=== PATIENT | male | born 1940 | race Caucasian/White ===

== ENCOUNTER 2018-02-25 09:12 | Inpatient (IN) ==
[2018-02-25] MEDS ORDERED: Naloxone 0.4 MG/ML INJ IVP PRN (12:13)
[2018-02-25] MEDS ORDERED: 0.9 % Sodium Chloride 1,000 ML IVC SCH (12:15)
--- NOTE | 2018-02-25 12:36 | Internal Med History&Physical ---
<Jennifer Hines - Last Filed: 02/25/18 13:20> Date of Encounter: 02/25/18 Time of Encounter: 12:28 Internal Medicine - H&P: HPI Chief complaint: Weakness Admitted From: Home Plans for Post Hospital Care: Home History of present illness: Mr. Almazan is a 77 year old male with history hypertension CAD, vertigo, and anemia. Patient presented to [facility] today through the ED regarding weakness, dizziness, and melena stools that began yesterday. He was unsure how many stools he had but did indicate that they were diarrheal and he did not have much control over them. + occult stools. Hgb 9.8. Vitals are stable , however the bp is marginally low at 106/59. Will check ortho statics daily. He indicated that he was very dizzy for the past 2 days. Denies fever. Denies chest pain, trops was <0.03. The patient is on plavix, will hold Plavix for now. WBC is 21.2, chest x-ray negative for disease, and UA ordered. Protonix drip started. Patient will be npo after midnight. Please consult GI in am. Past Med Surg Social Fam HX - Past Medical History Medical history: aortic aneurysm, arthritis, COPD, coronary artery disease, GERD , hyperlipidemia, hypertension, kidney stones, myocardial infarction, TIA, other Additional medical history: CAD. HTN. HLD. GERD. Ureteral stone Psychiatric history: anxiety, depression - Past Surgical History Surgical History: angioplasty/stent, appendectomy, herniorrhaphy, hip replacement, orthopedic, other, sinus surgery, other Additional surgical history: esophageal sx, "stomach sx," shoulder surgery - Social History Smoking Status: Former smoker Smokeless Tobacco Status: No Alcohol use: none Drug use: none - Family History Father Age: 78 Cause of : Cancer Hx Family Cardiac Disorders: No Hx Family Respiratory Disorders: Yes Hx Family Cancer: Yes (Hip cancer) Hx Family GI Disorders: No Hx Family Genitourinary Disorders: Yes (Kidney stones) Hx Family Endocrine Disorder: No Hx Family Musculoskeletal Disorders: No Hx Family Neuromuscular Disorders: No Hx Family Neurologic Disorders: No Hx Family HEENT Disorders: No Hx Family Autoimmune Disorders: No Hx Family Reproductive Disorders: No Hx Family Psychosocial Disorders: No Hx Family Medical Disorders: No Internal Medicine - H&P: Meds Clopidogrel [Plavix] 75 mg PO DAILY 06/09/15 [History] Finasteride [Proscar] 5 mg PO DAILY 06/09/15 [History] Isosorbide MONOnitrate [Isosorbide Mononitrate] 30 mg PO DAILY 06/09/15 [History ] Lisinopril [Zestril] 40 mg PO DAILY 06/09/15 [History] Metoclopramide [Reglan] 5 mg PO QIDAC 06/09/15 [History] Ranitidine HCl [Zantac] 300 mg PO BID 06/09/15 [History] Tamsulosin [Flomax] 0.4 mg PO DAILY 06/09/15 [History] Tizanidine HCl 2 mg PO DAILY PRN 02/02/16 [History] Simvastatin [Zocor] 10 mg PO DAILY 02/05/16 [History] ALPRAZolam [Xanax 0.25 MG Tablet] 0.25 mg PO TID 06/11/17 [History] Albuterol Sulfate [Ventolin Hfa] 18 gm IH Q4HR PRN 06/11/17 [History] Fluticasone/Salmeterol [Advair 250-50 Diskus] 1 each IH BID 06/11/17 [History] Hydrocodone/Acetaminophen [[place] 5-325 Tablet] 1 tab PO QID 06/11/17 [History] Montelukast [Singulair] 10 mg PO HS 06/11/17 [History] Nitroglycerin [Nitrostat] 0.4 mg SL PER PKG DI 06/11/17 [History] Omeprazole [PriLOSEC] 40 mg PO DAILY 06/11/17 [History] metFORMIN [Glucophage] 500 mg PO BIDWM PRN 06/11/17 [History] Orphenadrine [Norflex] 100 mg PO Q12HR #20 tablet.er 11/23/17 [Rx] Methocarbamol [Robaxin-750] 750 mg PO QID PRN #40 tablet 02/11/18 [Rx] 3 Allergy/AdvReac Type Severity Reaction Status Date / Time Iodinated Contrast- Oral and Allergy Anaphylaxis Verified 02/25/18 08:07 IV Dye All Systems PM: A 10-system review of systems was performed and is negative for pertinent findings except as documented above in the HPI. - Constitutional Constitutional: weakness, no chills, no fever(s), no night sweats - EENT Eyes: no change in vision, no discharge, no pain, no photophobia Ears: no ear discharge, no ear pain, no tinnitus Nose, mouth and throat: no dysphagia, no nasal discharge, no neck pain, no sore throat - Cardiovascular Cardiovascular ROS IM: lightheadedness, no chest pain, no diaphoresis, no dyspnea, no palpitations, no syncope - Respiratory Respiratory: no cough, no dyspnea, no wheezing, no excessive phlegm production - Gastrointestinal Gastrointestinal: nausea, no abdominal pain, no diarrhea, no hematemesis, no hematochezia, no melena, no vomiting - Musculoskeletal Musculoskeletal ROS IM: no numbness, no tingling - Integumentary Integumentary IM: no rash, no unusual bruising - Neurological Neurological ROS: dizziness, weakness, no confusion, no convulsions, no focal weakness, no numbness, no tingling, no tremor(s) - Hematologic/Lymphatic Hematologic/Lymphatic: no easy bruising - Constitutional Vitals: Temp Pulse Resp BP Pulse Ox 97.4 F L 98 18 106/59 94 02/25/18 10:40 02/25/18 10:40 02/25/18 10:40 02/25/18 10:40 02/25/18 10:40 General appearance: Present: A&O X 3, answers questions appropriately - Head Head exam: Present: atraumatic, normocephalic - Eye Eye exam: Present: PERRL, conjuntiva pink, sclera anicteric Pupils: Present: PERRL - Neck Neck exam general surgery: Present: supple, trachea midline. Absent: lymphadenopathy - Respiratory Respiratory exam: Present: CTAB. Absent: accessory muscle use, rales, rhonchi, wheezes - Cardiovascular Cardiovascular exam: Present: RRR, +S1, +S2. Absent: diastolic murmur, gallop, rubs, systolic murmur - GI/Abdominal GI/Abdominal exam: Present: normal bowel sounds, soft, no peritoneal signs. Absent: distended, tenderness - Extremities Exam Extremities exam: Present: warm, radial pulses palpable and symmetrical. Absent : calf tenderness, cyanotic, pedal edema - Neurological Exam Neurological exam: Present: CN II-XII intact, oriented X3, no focal deficits. Absent: pronater drift, facial droop, speech deficit - Skin Skin exam: Present: dry, intact - Assessment and plan (1) GI bleed Current Visit: No Status: Acute Assessment and plan: GI to be consulted in the am Monitor CBC and BMP PPI gtt NPO after midnight for possible GI intervention Qualifiers: GI bleed type/associated pathology: unspecified gastrointestinal hemorrhage type Qualified Code(s): K92.2 - Gastrointestinal hemorrhage, unspecified (2) Leukocytosis Current Visit: Yes Status: Acute Assessment and plan: Unsure of the etiology of the elevated wbc count. Chest xray was negative for disease. Scheduled UA with culture The patient denied fevers at home. Monitor CBC and BMP daily Qualifiers: Leukocytosis type: unspecified Qualified Code(s): D72.829 - Elevated white blood cell count, unspecified (3) Generalized weakness Current Visit: No Status: Acute Assessment and plan: Likely related to GI bleeding Monitor labs daily Will get daily orthostatics Serial Trops (4) Hypertension Current Visit: No Status: Chronic Assessment and plan: Bp is marginally low @ 106/59 Will add home zestril dosing with parameters Orthos daily Qualifiers: Hypertension type: essential hypertension Qualified Code(s): I10 - Essential (primary) hypertension - Time Spent With Patient Total time spent is greater than 50% in coordination of care (as documented) at patient's floor/unit and/or counseling patient: <Karol Drummond - Last Filed: 02/26/18 08:25> Date of Encounter: 02/25/18 Internal Medicine - H&P: HPI History of present illness: Mr. Almazan is a 77 year old male All Systems PM: A 10-system review of systems was performed and is negative for pertinent findings except as documented above in the HPI. - Constitutional Vitals: Temp Pulse Resp BP Pulse Ox 97.8 F 66 16 126/72 97 02/26/18 07:38 02/26/18 07:38 02/26/18 07:50 02/26/18 07:38 02/26/18 07:50 Internal Med - H&P Results - Labs CBC & Chem 7: 02/26/18 01:42 02/26/18 01:42 Labs: Short CBC 02/25/18 02/25/18 02/26/18 Range/Units 16:16 22:13 01:42 WBC 13.1 H 11.2 H 10.2 (4.3-11.1) K/mcL Hgb 7.7 L D 7.5 L 7.7 L (12.9-16.9) g/dL Hct 24.9 L 23.5 L 23.9 L (37.5-50.1) % Plt Count 185 164 152 (140-400) K/mcL Neutrophils # 8.2 6.6 5.6 (1.6-8.9) K/mcL BMP 02/26/18 01:42 Sodium 141 Potassium 4.1 Chloride 115 H Carbon Dioxide 21 L BUN 50 H Creatinine 0.93 Glucose 96 Calcium 7.6 L Cardiac Enzymes 02/25/18 02/25/18 02/26/18 Range/Units 13:05 19:08 01:42 Troponin I 0.04 H* 0.04 H* 0.03 (< 0.04) ng/mL Urine 02/25/18 Range/Units 17:29 Urine Color Yellow (Yellow) Urine Clarity Clear (Clear) Urine pH 6.0 (5.0-8.0) pH Units Ur Specific [place] 1.019 (1.010-1.025) Urine Protein Negative (Neg-Trace) mg/dL Urine Glucose (UA) Normal (Normal) mg/dL - Attending Attestation I have personally performed a face to face evaluation on this patient. I have reviewed and agree with the care plan provided by CHILD STUDY TEAM DIRECTOR Jennifer Hines . History and Exam by me shows: Mr. Almazan is a 77 year old male with history hypertension CAD, vertigo, and anemia. Patient presented to [facility] today through the ED regarding weakness, dizziness, and melena stools that began yesterday. He was unsure how many stools he had but did indicate that they were diarrheal and he did not have much control over them. + occult stools. Hgb 9.8. Vitals are stable , however the bp is marginally low at 106/59. He indicated that he was very dizzy for the past 2 days. He denied any CP / SOB. c/o feeling weak and lethargic. Gen: A, A, O x 3 Chest: Diminished BS b/l Heart: S1S2+ a/p 1. Acute melena / upper GI bleed 2. Acute blood loss anemia PPI BID Close monitoring of Hb GI consult in AM - May need EGD check Iron profile IV hydration - Time Spent With Patient Total time spent is greater than 50% in coordination of care (as documented) at patient's floor/unit and/or counseling patient:
[2018-02-25] MEDS: Pantoprazole 40 MG in 0.9 % Sodium Chloride Mini Bag 100 ML IVC SCH ×3 (13:30→22:54)
[2018-02-25 16:40] LABS: Basophils # 0.1 K/mcL (0.0-0.2); Basophils % 0.4 %; Eosinophils # 0.1 K/mcL (0.0-0.6); Eosinophils % 0.9 %; Hematocrit 24.9 % (37.5-50.1); Hemoglobin 7.7 g/dL (12.9-16.9); Immature Granulocytes % 0.3 % (0-4); Immature Platelets 2.7 % (1.1-6.1); Lymphocytes # 3.9 K/mcL (0.6-4.6); Lymphocytes % 29.9 %; Mean Corpuscular HGB Conc 30.9 g/dL (31.6-35.5); Mean Corpuscular Hemoglobin 25.1 pg (28.0-33.3); Mean Corpuscular Volume 81.1 fL (83.0-100.0); Mean Platelet Volume 9.8 fL (9.4-12.4); Monocytes # 0.8 K/mcL (0.0-1.3); Monocytes % 5.8 %; Neutrophils # 8.2 K/mcL (1.6-8.9); Platelet Count 185 K/mcL (140-400); Red Blood Count 3.07 M/mcL (4.19-5.50); Red Cell Distribution Width 18.2 % (11.5-14.5); Segmented Neutrophils % 62.7 %
[2018-02-25 17:40] LABS: Bilirubin,Urine Negative (Negative); Blood,Urine Negative (Negative); Clarity,Urine Clear (Clear); Color,Urine Yellow (Yellow); Glucose,Urine (UA) Normal (Normal); Ketones,Urine Negative (Negative); Leukocyte Esterase,Urine Small (Negative); Nitrite,Urine Negative (Negative); Protein,Urine Negative (Neg-Trace); Specific Gravity,Urine 1.019 (1.010-1.025); Urobilinogen,Urine Normal (Normal)
[2018-02-25 17:42] LABS: Bacteria,Urine Many per hpf (None-Few); Hyaline Casts,Urine None Seen per lpf (None-Few); RBC,Urine 0-3 per hpf (0-3); Squamous Epithelial Cell,Urine Moderate per lpf (None-Few)
[2018-02-25] MEDS ORDERED: *HR* HYDROcodone/Acet 5/325 mg TABLET PO PRN (17:53)
[2018-02-25] MEDS ORDERED: ALPRAZolam 0.25 MG TABLET PO PRN (17:53)
[2018-02-25] MEDS ORDERED: D5% in Water 1,000 ML IVC PRN (18:08)
[2018-02-25] MEDS ORDERED: *HR* Dextrose 50 % in Water (Syg) 50 ML SYRINGE IVP PRN (18:08)
[2018-02-25] MEDS ORDERED: Dextrose Gel 15 GM/37.5 ML TUBE PO PRN ×2 (18:08)
[2018-02-25] MEDS: Budesonide/Formoterol 80/4.5 MDI IH SCH (20:23)
[2018-02-25 22:25] LABS: Basophils # 0.1 K/mcL (0.0-0.2); Basophils % 0.4 %; Eosinophils # 0.2 K/mcL (0.0-0.6); Hematocrit 23.5 % (37.5-50.1); Hemoglobin 7.5 g/dL (12.9-16.9); Immature Granulocytes % 0.3 % (0-4); Lymphocytes # 3.7 K/mcL (0.6-4.6); Lymphocytes % 33.2 %; Mean Corpuscular HGB Conc 31.9 g/dL (31.6-35.5); Mean Corpuscular Hemoglobin 26.1 pg (28.0-33.3); Mean Corpuscular Volume 81.9 fL (83.0-100.0); Mean Platelet Volume 10.3 fL (9.4-12.4); Monocytes # 0.6 K/mcL (0.0-1.3); Monocytes % 5.3 %; Neutrophils # 6.6 K/mcL (1.6-8.9); Platelet Count 164 K/mcL (140-400); Red Blood Count 2.87 M/mcL (4.19-5.50); Red Cell Distribution Width 18.1 % (11.5-14.5); Segmented Neutrophils % 58.8 %
[2018-02-25] MEDS: Insulin LISPRO 300 UNITS/3 ML VIAL SQ SCH (22:39)
[2018-02-26 01:53] LABS: Basophils # 0.1 K/mcL (0.0-0.2); Basophils % 0.5 %; Eosinophils # 0.3 K/mcL (0.0-0.6); Eosinophils % 2.5 %; Hematocrit 23.9 % (37.5-50.1); Hemoglobin 7.7 g/dL (12.9-16.9); Immature Granulocytes % 0.3 % (0-4); Lymphocytes # 3.8 K/mcL (0.6-4.6); Lymphocytes % 37.2 %; Mean Corpuscular HGB Conc 32.2 g/dL (31.6-35.5); Mean Corpuscular Hemoglobin 26.5 pg (28.0-33.3); Mean Corpuscular Volume 82.1 fL (83.0-100.0); Mean Platelet Volume 9.5 fL (9.4-12.4); Monocytes # 0.5 K/mcL (0.0-1.3); Neutrophils # 5.6 K/mcL (1.6-8.9); Platelet Count 152 K/mcL (140-400); Red Blood Count 2.91 M/mcL (4.19-5.50); Red Cell Distribution Width 18.1 % (11.5-14.5); Segmented Neutrophils % 54.5 %
[2018-02-26 02:10] LABS: BUN/Creatinine Ratio 54 (6-26); Blood Urea Nitrogen 50 mg/dL (8-23); Calcium 7.6 mg/dL (8.6-10.3); Carbon Dioxide 21 mEq/L (23-29); Chloride 115 mEq/L (98-107); Glucose 96 mg/dL (70-105); Magnesium 1.9 mg/dL (1.6-2.6); Osmolality,Calculated 305 (280-300); Potassium 4.1 mEq/L (3.5-5.1); Sodium 141 mEq/L (136-145); eGFR For African Americans > 60 (> 60); eGFR For Non-African Americans > 60 (> 60)
[2018-02-26] MEDS: Pantoprazole 40 MG in 0.9 % Sodium Chloride Mini Bag 100 ML IVC SCH (03:52)
[2018-02-26] MEDS: Insulin LISPRO 300 UNITS/3 ML VIAL SQ SCH ×4 (07:39→20:34)
[2018-02-26] MEDS: Budesonide/Formoterol 80/4.5 MDI IH SCH ×2 (07:50→20:48)
[2018-02-26] MEDS ORDERED: Lisinopril 20 MG TABLET PO SCH (09:00)
[2018-02-26] MEDS: Isosorbide MONOnitrate (24 HR) 30 MG TAB.ER.24H PO SCH (09:38)
[2018-02-26] MEDS: Finasteride 5 MG TABLET PO SCH (09:38)
--- NOTE | 2018-02-26 12:18 | Gastroenterology Consult Note ---
<MccauleyMarkus devine Foster - Last Filed: 02/26/18 12:16> Date of Encounter: 02/26/18 Time of Encounter: 11:30 - Assessment and plan (1) GI bleed Current Visit: Yes Status: Acute Assessment and plan: Pt with melena and dark red blood with BM. Plan for EGD today to r/o esophagitis , gastritis, duodenitis, PUD, MW tear, or AVM. Keep patient NPO for now. Consider colonoscopy tomorrow if EGD negative. Continue PPI. Qualifiers: GI bleed type/associated pathology: unspecified gastrointestinal hemorrhage type Qualified Code(s): K92.2 - Gastrointestinal hemorrhage, unspecified (2) Anemia Current Visit: Yes Status: Acute Assessment and plan: Hgb 7.7 on admission and Hgb 7.7 this AM. Continue to monitor CBC and transfuse PRBC as needed. Check iron and ferritin. Qualifiers: Anemia type: unspecified type Qualified Code(s): D64.9 - Anemia, unspecified - Time Spent With Patient Total time spent is greater than 50% in coordination of care (as documented) at patient's floor/unit and/or counseling patient: GI History of Present Illness - Data of Consult Patient: new to practice Consult date: 02/26/18 Requesting Physician: Karol Drummond MD - Consult Narrative Reason for consult: GI bleed, melena History of present illness: Mr. Almazan is a 77 year old male with PMHx of aortic aneurysm, arthritis, COPD , CAD, GERD, HLD, HTN, [place], TIA who presented to [facility] through the ED regarding weakness, dizziness, and melena stools and dark red blood with BM that began the day prior to admission. He was unsure how many stools he had but did indicate that they were diarrhea and he did not have much control over them. Positive fecal occult stools. Hgb 7.7 on admission and Hgb 7.7 this AM. Protonix drip started and changed to IVP. Procedures: EGD 04/01/2011 Dr. Skelton: LA Grade C erosive esophagitis, pyloroplasty and Billroth I anastomosis was found. Colonoscopy 02/24/2010 Dr. Meng: Tubular adenoma. NSAIDs: None Anticoagulation: Plavix Past Med Surg Social Fam HX - Past Medical History Medical history: aortic aneurysm, arthritis, COPD, coronary artery disease, GERD , hyperlipidemia, hypertension, kidney stones, myocardial infarction, TIA, other Additional medical history: CAD. HTN. HLD. GERD. Ureteral stone Psychiatric history: anxiety, depression - Past Surgical History Surgical History: angioplasty/stent, appendectomy, herniorrhaphy, hip replacement, orthopedic, other, sinus surgery, other Additional surgical history: esophageal sx, "stomach sx," shoulder surgery - Social History Smoking Status: Former smoker Smokeless Tobacco Status: No Alcohol use: none Drug use: none - Family History Father Age: 78 Cause of : Cancer Hx Family Cardiac Disorders: No Hx Family Respiratory Disorders: Yes Hx Family Cancer: Yes (Hip cancer) Hx Family GI Disorders: No Hx Family Genitourinary Disorders: Yes (Kidney stones) Hx Family Endocrine Disorder: No Hx Family Musculoskeletal Disorders: No Hx Family Neuromuscular Disorders: No Hx Family Neurologic Disorders: No Hx Family HEENT Disorders: No Hx Family Autoimmune Disorders: No Hx Family Reproductive Disorders: No Hx Family Psychosocial Disorders: No Hx Family Medical Disorders: No - Gastrointestinal Gastrointestinal: Present: as per HPI - Constitutional Constitutional: as per HPI - EENT Eyes: as per HPI Ears: Present: as per HPI Nose, mouth and throat: Present: as per HPI - Cardiovascular Cardiovascular ROS: Present: as per HPI - Respiratory Respiratory IM: Present: as per HPI - Genitourinary Genitourinary: Absent: change in color, Urinary frequency - Neurological ROS Neurological GI: Present: as per HPI - Hematologic/Lymphatic Hematologic/Lymphatic pediatric: Present: as per HPI - Musculoskeletal Musculoskeletal ROS GI: Present: as per HPI - Integumentary Integumentary GI: Present: as per HPI - Psychiatric ROS Psychiatric GI: Present: as per HPI - Endocrine Endocrine IM: Present: as per HPI - Constitutional Vitals: Temp Pulse Resp BP Pulse Ox 97.8 F 64 14 106/52 100 02/26/18 10:53 02/26/18 10:53 02/26/18 10:53 02/26/18 10:53 02/26/18 10:53 General appearance: Present: cooperative, A&O X 3, no acute distress, answers questions appropriately - Head Head exam: Present: atraumatic, normocephalic - Eye Eye exam: Present: normal appearance, sclera anicteric - ENT ENT exam: Present: mucous membranes dry - Neck Neck exam general surgery: Present: normal inspection, trachea midline - Respiratory Respiratory exam: Present: decreased breath sounds, CTAB. Absent: rales, rhonchi - Cardiovascular Cardiovascular exam: Present: RRR, +S1, +S2 - GI/Abdominal GI/Abdominal exam: Present: soft, no peritoneal signs. Absent: distended, firm , guarding, tenderness - Rectal Rectal exam: Present: deferred - Extremities Exam Extremities exam: Present: warm - Neurological Exam Neurological exam: Present: no focal deficits - Psychiatric Psychiatric exam: Present: normal affect, normal mood - Skin Skin exam: Present: dry, intact, normal color, warm Results - Labs CBC & Chem 7: 02/26/18 01:42 02/26/18 01:42 Labs: Last Result Calcium 7.6 mg/dL (8.6-10.3) L 02/26/18 01:42 Troponin I 0.03 ng/mL (< 0.04) 02/26/18 01:42 Entire Visit Hgb 7.7 g/dL (12.9-16.9) L 02/26/18 01:42 Hct 23.9 % (37.5-50.1) L 02/26/18 01:42 Consult Discharge Plan - Plan Referrals: Syeda Dubose, CLIP ON SUNGL[employer]ES INSPECTOR [Primary Care Provider] - <Randell Julian - Last Filed: 02/26/18 13:49> Date of Encounter: 02/26/18 Time of Encounter: 13:15 - Time Spent With Patient Total time spent is greater than 50% in coordination of care (as documented) at patient's floor/unit and/or counseling patient: GI History of Present Illness - Data of Consult Requesting Physician: Karol Drummond MD - Consult Narrative History of present illness: Mr. Almazan is a 77 year old male - Constitutional Vitals: Temp Pulse Resp BP Pulse Ox 98.7 F 78 16 107/61 98 02/26/18 12:50 02/26/18 12:50 02/26/18 12:50 02/26/18 12:50 02/26/18 12:50 Results - Labs CBC & Chem 7: 02/26/18 01:42 02/26/18 01:42 Labs: Last Result Calcium 7.6 mg/dL (8.6-10.3) L 02/26/18 01:42 Troponin I 0.03 ng/mL (< 0.04) 02/26/18 01:42 Entire Visit Hgb 7.7 g/dL (12.9-16.9) L 02/26/18 01:42 Hct 23.9 % (37.5-50.1) L 02/26/18 01:42 - Attending Attestation I have personally performed a face to face evaluation on this patient. I have reviewed and agree with the care plan. History and Exam by me shows: Pt seen complaining of rectal bleeding per patient both red and dark. History of coronary disease with stent placement and is currently on Plavix. Recommendation: EGD today and if negative then we will need a colonoscopy
--- NOTE | 2018-02-26 12:21 | Anesthesia Evaluation PreOp ---
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: TIA (no residual deficits) Other Medical History: Renal (stones), Bleeding (GI bleed), GERD (hx esophageal/ stomach surgery) Anesthesia History: No Prior Anesthetic Complications Alcohol Use: none Drug use: none Medications and Allergies Isosorbide MONOnitrate [Isosorbide Mononitrate] 30 mg PO DAILY 06/09/15 [History ] Tizanidine HCl 2 mg PO DAILY PRN 02/02/16 [History] Simvastatin [Zocor] 10 mg PO DAILY 02/05/16 [History] ALPRAZolam [Xanax 0.25 MG Tablet] 0.25 mg PO TID 06/11/17 [History] Albuterol Sulfate [Ventolin Hfa] 18 gm IH Q4HR PRN 06/11/17 [History] Fluticasone/Salmeterol [Advair 250-50 Diskus] 1 each IH BID 06/11/17 [History] Montelukast [Singulair] 10 mg PO HS 06/11/17 [History] Nitroglycerin [Nitrostat] 0.4 mg SL PER PKG DI 06/11/17 [History] Omeprazole [PriLOSEC] 40 mg PO DAILY 06/11/17 [History] metFORMIN [Glucophage] 500 mg PO BIDWM PRN 06/11/17 [History] Orphenadrine [Norflex] 100 mg PO Q12HR #20 tablet.er 11/23/17 [Rx] Methocarbamol [Robaxin-750] 750 mg PO QID PRN #40 tablet 02/11/18 [Rx] Clopidogrel [Plavix] 75 mg PO DAILY 02/26/18 [History] Finasteride [Proscar] 5 mg PO DAILY 02/26/18 [History] HYDROcodone/Acet 5/325 mg [[place] 5-325 mg] 1 tab PO Q6H PRN 02/26/18 [History] Lisinopril [Zestril] 40 mg PO DAILY 02/26/18 [History] Metoclopramide HCl 5 mg PO QID 02/26/18 [History] Ranitidine HCl [Zantac] 300 mg PO DAILY 02/26/18 [History] Tamsulosin [Flomax] 0.4 mg PO DAILY 02/26/18 [History] Tizanidine HCl 4 mg PO DAILY 02/26/18 [History] 3 Allergy/AdvReac Type Severity Reaction Status Date / Time Iodinated Contrast- Oral and Allergy Anaphylaxis Verified 02/25/18 08:07 IV Dye - Meds/Allergy Pre-op Review Medications Reviewed: Yes Allergies Reviewed: Yes Beta Blockers on Current Med List: No Anesthesia Results - Labs 02/26/18 01:42 02/26/18 01:42 - Imaging Additional studies: TTE: Indications: Coronary artery disease, dyspnea, dizziness, Hypertension Impressions: Sinus bradycardia. Heart rate was in the 40's during this study. Normal LV systolic function, LVEF 60%. Mild-moderate concentric left ventricular hypertrophy. Mild left ventricular diastolic dysfunction. Normal right ventricular structure and function. No significant valvular dysfunction. No evidence of pulmonary hypertension. 2015 Holter: Impression: 1. Diary was not returned. 2. One PVC. 3. Rare PACs - 1.8/hr. 4. Two episodes of SVT - longest 8 beats. Anesthesia Exam Last Vital Signs Temp 97.8 F 02/26/18 10:53 Pulse 64 02/26/18 10:53 Resp 14 02/26/18 10:53 BP 106/52 02/26/18 10:53 Pulse Ox 100 02/26/18 10:53 Weight: 62 kg NPO (# of Hours): > 8 hrs - HEENT Pupil (Motor): Pupils equal, EOMI Mallampati: III Teeth: Edentulous Denture Type: Upper: Complete Oral Opening: Greater than 3 - BONE CHAR OPERATOR LOC: Oriented - Cardiac Rhythm: Regular Murmur: None - Pulmonary Breath Sounds: bilateral Clear Respiratory Effort: Symmetrical Anesthesia Assess/Plan ASA Score: 4 Modified [place] Scale for Level of Consciousness: Cooperative, oriented, and tranquil Anesthetic Plan: MAC Monitoring Plan: Standard Monitors Recovery Plan: PACU
[2018-02-26] MEDS ORDERED: *HR* Propofol 200 MG/20 ML VIAL IVP ONE (12:25)
[2018-02-26] MEDS ORDERED: Lidocaine -MPF 2% 2 ML VIAL ONE (12:25)
[2018-02-26] MEDS ORDERED: *HR* PHENYLEPHRINE 1,000 MCG/10 ML SYRINGE IVP ONE (12:41)
[2018-02-26] MEDS ORDERED: SODIUM CHLORIDE/NAHCO3/KCL/PEG 4,000 ML SOLN.RECON PO ONE (13:49)
--- NOTE | 2018-02-26 13:55 | Anesthesia Evaluation Post Op ---
Date of Encounter: 02/26/18 Time of Encounter: 13:55 - Vital Signs Vital Signs: see anesthesia record - Lungs Lungs: Clear Ascult./Percussion - Airway Airway: Non-obstructed - Cardiovascular Regular Rate - Mental Status Mental Status: Alert & Oriented, Answers Appropriately - Pain Pain Scale: 2 - Nausea Vomiting Nausea Vomiting: Not Present - Hydration Hydration: NPO - Discharge PostOp Status: Transfer Patient to floor
[2018-02-26 14:09] LABS: % Iron Saturation 4 % (20-55); Ferritin 18 ng/ml (20-250); Iron 11 mcg/dL (65-175); Transferrin 216 mg/dL (203-362)
--- NOTE | 2018-02-26 18:04 | Internal Med Progress Note ---
Date of Encounter: 02/26/18 Time of Encounter: 18:02 - Assessment and plan (1) Anemia Current Visit: Yes Status: Acute Assessment and plan: Acute blood loss anemia s/p EGD showed esophagitis Hb dropped down to 7.7 with his current active bleeding will give him 2 U PRBC switched him to full admission since he needs to stay in hospital more than 2-3 nights PPI BID IV hydration will check stat H/H now Qualifiers: Anemia type: unspecified type Qualified Code(s): D64.9 - Anemia, unspecified (2) GI bleed Current Visit: Yes Status: Acute Assessment and plan: see above Qualifiers: GI bleed type/associated pathology: unspecified gastrointestinal hemorrhage type Qualified Code(s): K92.2 - Gastrointestinal hemorrhage, unspecified (3) CAD (coronary artery disease) Current Visit: No Status: Chronic Assessment and plan: resumed all home meds except ASA Qualifiers: Coronary Disease-Associated Artery/Lesion type: unspecified vessel or lesion type [place] vs. transplanted heart: [place] heart Associated angina: angina presence unspecified Qualified Code(s): I25.10 - Atherosclerotic heart disease of [place] coronary artery without angina pectoris (4) Hypertension Current Visit: No Status: Chronic Assessment and plan: BP running little low so held Lisinopril Qualifiers: Hypertension type: essential hypertension Qualified Code(s): I10 - Essential (primary) hypertension - Time Spent With Patient Total time spent is greater than 50% in coordination of care (as documented) at patient's floor/unit and/or counseling patient: - Subjective Interval history: Pt had EGD today - LA grade D esophagitis He is c/o feeling weak and dizzy GI started colonoscopy prep..Now he started having more bright red blood per rectum Denied any CP - Constitutional Vitals: Temp Pulse Resp BP Pulse Ox 97.9 F 70 15 103/57 98 02/26/18 16:06 02/26/18 16:06 02/26/18 16:06 02/26/18 16:06 02/26/18 16:06 General appearance: Present: A&O X 3, answers questions appropriately - Head Head exam: Present: atraumatic, normal inspection - Neck Neck exam general surgery: Present: supple - Respiratory Respiratory exam: Present: decreased breath sounds. Absent: rales, respiratory distress, wheezes - Cardiovascular Cardiovascular exam: Present: RRR, +S1, +S2. Absent: tachycardia - GI/Abdominal GI/Abdominal exam: Present: normal bowel sounds, soft. Absent: rebound, rigid, tenderness - Extremities Exam Extremities exam: Absent: pedal edema, tenderness - Back Exam Back exam: Absent: CVA tenderness (L), CVA tenderness (R) - Neurological Exam Neurological exam: Present: alert, oriented X3 Internal Medicine: Result - Labs CBC & Chem 7: 02/26/18 01:42 02/26/18 01:42 Labs: Short CBC 02/25/18 02/26/18 Range/Units 22:13 01:42 WBC 11.2 H 10.2 (4.3-11.1) K/mcL Hgb 7.5 L 7.7 L (12.9-16.9) g/dL Hct 23.5 L 23.9 L (37.5-50.1) % Plt Count 164 152 (140-400) K/mcL Neutrophils # 6.6 5.6 (1.6-8.9) K/mcL BMP 02/26/18 01:42 Sodium 141 Potassium 4.1 Chloride 115 H Carbon Dioxide 21 L BUN 50 H Creatinine 0.93 Glucose 96 Calcium 7.6 L Cardiac Enzymes 02/25/18 02/26/18 Range/Units 19:08 01:42 Troponin I 0.04 H* 0.03 (< 0.04) ng/mL Consult Discharge Plan - Plan Referrals: Syeda Dubose, DIRECTOR OF ONCOLOGY [Primary Care Provider] -
[2018-02-26 18:27] LABS: Hematocrit 25.8 % (37.5-50.1)
[2018-02-26] MEDS: Pantoprazole 40 MG VIAL IVP SCH (18:33)
[2018-02-26] MEDS: 0.9 % Sodium Chloride 1,000 ML IVC SCH (18:39)
[2018-02-26] MEDS ORDERED: 0.9 % Sodium Chloride 250 ML ONE ×2 (20:02→23:15)
[2018-02-27] MEDS ORDERED: Ondansetron 4 MG/2 ML VIAL IVP SCH
[2018-02-27] MEDS ORDERED: Ondansetron 4 MG/2 ML VIAL IVP PRN (03:30)
[2018-02-27] MEDS: 0.9 % Sodium Chloride 1,000 ML IVC SCH ×3 (04:49→21:55)
[2018-02-27] MEDS: Pantoprazole 40 MG VIAL IVP SCH ×2 (05:46→16:50)
[2018-02-27 06:59] LABS: Basophils # 0.1 K/mcL (0.0-0.2); Basophils % 0.4 %; Eosinophils # 0.1 K/mcL (0.0-0.6); Eosinophils % 0.8 %; Hematocrit 25.7 % (37.5-50.1); Hemoglobin 8.2 g/dL (12.9-16.9); Immature Granulocytes % 0.6 % (0-4); Lymphocytes # 2.3 K/mcL (0.6-4.6); Lymphocytes % 15.6 %; Mean Corpuscular HGB Conc 31.9 g/dL (31.6-35.5); Mean Corpuscular Hemoglobin 26.5 pg (28.0-33.3); Mean Corpuscular Volume 82.9 fL (83.0-100.0); Mean Platelet Volume 10.4 fL (9.4-12.4); Monocytes # 0.6 K/mcL (0.0-1.3); Monocytes % 4.2 %; Neutrophils # 11.4 K/mcL (1.6-8.9); Platelet Count 128 K/mcL (140-400); Red Cell Distribution Width 17.6 % (11.5-14.5); Segmented Neutrophils % 78.4 %
[2018-02-27 07:17] LABS: BUN/Creatinine Ratio 35 (6-26); Blood Urea Nitrogen 34 mg/dL (8-23); Calcium 7.3 mg/dL (8.6-10.3); Carbon Dioxide 22 mEq/L (23-29); Chloride 114 mEq/L (98-107); Glucose 127 mg/dL (70-105); Osmolality,Calculated 297 (280-300); Potassium 4.1 mEq/L (3.5-5.1); Sodium 139 mEq/L (136-145); eGFR For African Americans > 60 (> 60); eGFR For Non-African Americans > 60 (> 60)
[2018-02-27] MEDS: Budesonide/Formoterol 80/4.5 MDI IH SCH ×2 (07:36→19:49)
[2018-02-27] MEDS: Finasteride 5 MG TABLET PO SCH (08:07)
[2018-02-27] MEDS: Isosorbide MONOnitrate (24 HR) 30 MG TAB.ER.24H PO SCH (08:08)
[2018-02-27] MEDS: Insulin LISPRO 300 UNITS/3 ML VIAL SQ SCH ×5 (08:08→20:23)
[2018-02-27] MEDS ORDERED: *HR* Midazolam HCl 5 MG/5 ML VIAL IVP ONE (12:06)
[2018-02-27] MEDS ORDERED: *HR* FentaNYL (PF) 100 MCG/2 ML VIAL ONE (12:07)
[2018-02-27] MEDS ORDERED: *HR* FentaNYL (PF) 100 MCG/2 ML VIAL IVP ONE (12:10)
[2018-02-27] MEDS ORDERED: Simethicone 40 MG/0.6 ML MLS IR ONE (12:10)
[2018-02-27] MEDS ORDERED: *HR* Midazolam HCl 2 MG/2 ML VIAL IVP ONE (12:10)
--- NOTE | 2018-02-27 17:36 | Internal Med Progress Note ---
Date of Encounter: 02/27/18 Time of Encounter: 11:00 - Assessment and plan (1) GI bleed Current Visit: Yes Status: Acute Assessment and plan: Patient scheduled for colonoscopy this afternoon per GI Qualifiers: GI bleed type/associated pathology: unspecified gastrointestinal hemorrhage type Qualified Code(s): K92.2 - Gastrointestinal hemorrhage, unspecified (2) Anemia Current Visit: Yes Status: Acute Assessment and plan: Suspect secondary to acute blood loss anemia. s/p EGD showed esophagitis Hb dropped down to 7.7 and was given 2 U PRBC Patient hemoglobin today 8.2 Patient scheduled for colonoscopy this afternoon per GI Qualifiers: Anemia type: unspecified type Qualified Code(s): D64.9 - Anemia, unspecified (3) Hypertension Current Visit: No Status: Chronic Assessment and plan: BP runninglow Continue holding Lisinopril Qualifiers: Hypertension type: essential hypertension Qualified Code(s): I10 - Essential (primary) hypertension (4) CAD (coronary artery disease) Current Visit: No Status: Chronic Assessment and plan: resumed all home meds except ASA Qualifiers: Coronary Disease-Associated Artery/Lesion type: unspecified vessel or lesion type [place] vs. transplanted heart: [place] heart Associated angina: angina presence unspecified Qualified Code(s): I25.10 - Atherosclerotic heart disease of [place] coronary artery without angina pectoris - Time Spent With Patient Total time spent is greater than 50% in coordination of care (as documented) at patient's floor/unit and/or counseling patient: - Subjective Interval history: Patient hemodynamically stable status post 2 units of packed red blood cells Patient scheduled for colonoscopy this afternoon - Constitutional Vitals: Temp Pulse Resp BP Pulse Ox 97.8 F 65 18 101/40 96 02/27/18 15:44 02/27/18 15:44 02/27/18 15:44 02/27/18 15:44 02/27/18 15:44 General appearance: Present: A&O X 3, answers questions appropriately - Respiratory Respiratory exam: Present: CTAB. Absent: accessory muscle use, rales, rhonchi, wheezes - Cardiovascular Cardiovascular exam: Present: RRR, +S1, +S2. Absent: diastolic murmur, gallop, rubs, systolic murmur Internal Medicine: Result - Labs CBC & Chem 7: 02/27/18 06:33 02/27/18 06:33 Labs: Short CBC 02/26/18 02/27/18 Range/Units 18:13 06:33 WBC 14.6 H (4.3-11.1) K/mcL Hgb 8.0 L 8.2 L (12.9-16.9) g/dL Hct 25.8 L 25.7 L (37.5-50.1) % Plt Count 128 L (140-400) K/mcL Neutrophils # 11.4 H (1.6-8.9) K/mcL BMP 02/27/18 06:33 Sodium 139 Potassium 4.1 Chloride 114 H Carbon Dioxide 22 L BUN 34 H Creatinine 0.96 Glucose 127 H Calcium 7.3 L - VTE Documentation of Mechanical Device: Intermittent pneumatic compression device Consult Discharge Plan - Plan Referrals: Syeda Dubose, [employer] [Primary Care Provider] -
[2018-02-28] MEDS: Pantoprazole 40 MG VIAL IVP SCH (05:16)
[2018-02-28] MEDS: 0.9 % Sodium Chloride 1,000 ML IVC SCH (05:16)
[2018-02-28 06:08] LABS: BUN/Creatinine Ratio 21 (6-26); Blood Urea Nitrogen 17 mg/dL (8-23); Calcium 7.1 mg/dL (8.6-10.3); Carbon Dioxide 21 mEq/L (23-29); Chloride 115 mEq/L (98-107); Glucose 89 mg/dL (70-105); Osmolality,Calculated 291 (280-300); Potassium 3.6 mEq/L (3.5-5.1); Sodium 140 mEq/L (136-145); eGFR For African Americans > 60 (> 60); eGFR For Non-African Americans > 60 (> 60)
[2018-02-28] MEDS: Budesonide/Formoterol 80/4.5 MDI IH SCH (07:39)
[2018-02-28 07:50] LABS: Basophils % 0.6 %; Eosinophils # 0.2 K/mcL (0.0-0.6); Eosinophils % 2.3 %; Hematocrit 23.7 % (37.5-50.1); Hemoglobin 7.7 g/dL (12.9-16.9); Immature Granulocytes % 0.4 % (0-4); Lymphocytes # 1.9 K/mcL (0.6-4.6); Lymphocytes % 27.8 %; Mean Corpuscular HGB Conc 32.5 g/dL (31.6-35.5); Mean Corpuscular Hemoglobin 27.7 pg (28.0-33.3); Mean Corpuscular Volume 85.3 fL (83.0-100.0); Monocytes # 0.5 K/mcL (0.0-1.3); Monocytes % 7.3 %; Neutrophils # 4.2 K/mcL (1.6-8.9); Platelet Count 110 K/mcL (140-400); Red Blood Count 2.78 M/mcL (4.19-5.50); Red Cell Distribution Width 17.8 % (11.5-14.5); Segmented Neutrophils % 61.6 %
[2018-02-28] MEDS: Insulin LISPRO 300 UNITS/3 ML VIAL SQ SCH (09:21)
[2018-02-28] MEDS: Finasteride 5 MG TABLET PO SCH (09:22)
[2018-02-28] MEDS: Isosorbide MONOnitrate (24 HR) 30 MG TAB.ER.24H PO SCH (09:22)
--- NOTE | 2018-02-28 10:50 | Discharge Summary ---
- NOTES TO OUTPATIENT PROVIDER Notes to Outpatient Provider: Should to have his hemoglobin checked in 3 days monitoring of acute anemia Orders not resulted at time of discharge: Pending orders 02/25/18 13:05 Culture,Blood [BC] Stat 02/27/18 12:43 Surgical Pathology [PTH] Routine Date of Encounter: 02/28/18 Time of Encounter: 11:00 - Discharge Diagnosis (1) GI bleed Priority: Primary Status: Acute Qualifiers: GI bleed type/associated pathology: unspecified gastrointestinal hemorrhage type Qualified Code(s): K92.2 - Gastrointestinal hemorrhage, unspecified (2) Anemia Priority: Primary Status: Acute Qualifiers: Anemia type: unspecified type Qualified Code(s): D64.9 - Anemia, unspecified (3) Hypertension Priority: Secondary Status: Chronic Qualifiers: Hypertension type: essential hypertension Qualified Code(s): I10 - Essential (primary) hypertension (4) CAD (coronary artery disease) Priority: Secondary Status: Chronic Qualifiers: Coronary Disease-Associated Artery/Lesion type: unspecified vessel or lesion type [place] vs. transplanted heart: [place] heart Associated angina: angina presence unspecified Qualified Code(s): I25.10 - Atherosclerotic heart disease of [place] coronary artery without angina pectoris Hospital course: Patient is a 77-year-old male with past medical history significant for hypertension CAD, vertigo, and anemia who presented from [facility] due to weakness, dizziness, and melena stools that began yesterday. In the ER, patient was found to have occult positive stools with a hemoglobin of 9.8. Patient was admitted to medical surgical floor for further workup. During past patients hospital stay, GI was consulted with recommendations for repeat colonoscopy in 5 years. Patient will be discharged to start Carafate and continue PPI. Patient will need to follow up with primary care provider with monitoring of his hemoglobin. - Time Spent with Patient Total time spent providing and/or coordinating discharge services: Less than 30 minutes - Discharge Medications Prescriptions: Sucralfate [Carafate] 1 gm PO TIDAC #90 udc Home Medications: Isosorbide MONOnitrate [Isosorbide Mononitrate] 30 mg PO DAILY 06/09/15 [History ] Tizanidine HCl 2 mg PO DAILY PRN 02/02/16 [History] Simvastatin [Zocor] 10 mg PO DAILY 02/05/16 [History] ALPRAZolam [Xanax 0.25 MG Tablet] 0.25 mg PO TID 06/11/17 [History] Albuterol Sulfate [Ventolin Hfa] 18 gm IH Q4HR PRN 06/11/17 [History] Fluticasone/Salmeterol [Advair 250-50 Diskus] 1 each IH BID 06/11/17 [History] Montelukast [Singulair] 10 mg PO HS 06/11/17 [History] Nitroglycerin [Nitrostat] 0.4 mg SL PER PKG DI 06/11/17 [History] Omeprazole [PriLOSEC] 40 mg PO DAILY 06/11/17 [History] metFORMIN [Glucophage] 500 mg PO BIDWM PRN 06/11/17 [History] Orphenadrine [Norflex] 100 mg PO Q12HR #20 tablet.er 11/23/17 [Rx] Methocarbamol [Robaxin-750] 750 mg PO QID PRN #40 tablet 02/11/18 [Rx] Clopidogrel [Plavix] 75 mg PO DAILY 02/26/18 [History] Finasteride [Proscar] 5 mg PO DAILY 02/26/18 [History] HYDROcodone/Acet 5/325 mg [[place] 5-325 mg] 1 tab PO Q6H PRN 02/26/18 [History] Lisinopril [Zestril] 40 mg PO DAILY 02/26/18 [History] Metoclopramide HCl 5 mg PO QID 02/26/18 [History] Ranitidine HCl [Zantac] 300 mg PO DAILY 02/26/18 [History] Tamsulosin [Flomax] 0.4 mg PO DAILY 02/26/18 [History] Tizanidine HCl 4 mg PO DAILY 02/26/18 [History] Sucralfate [Carafate] 1 gm PO TIDAC #90 udc 02/28/18 [Rx] Tamsulosin [Flomax] 0.4 mg PO DAILY capsule 02/28/18 [Rx] Allergies/Adverse Reactions: 3 Allergy/AdvReac Type Severity Reaction Status Date / Time Iodinated Contrast- Oral and Allergy Anaphylaxis Verified 02/25/18 08:07 IV Dye Date of admission: 02/26/18 17:59 Primary care physician: Syeda Dubose CNP Consults: 02/26/18 08:19 Consult to Gastroenterology [CONS] Routine Consulting Provider: [facility] Reason for Consult: GI Bleed / Melena Time Notified: 08:20 Call Completed: Yes - Constitutional Vitals: Temp Pulse Resp BP Pulse Ox 97.7 F 57 16 150/75 97 02/28/18 07:39 02/28/18 07:39 02/28/18 07:39 02/28/18 07:39 02/28/18 07:39 General appearance: Present: A&O X 3, answers questions appropriately - Respiratory Respiratory exam: Present: CTAB. Absent: accessory muscle use, rales, rhonchi, wheezes - Cardiovascular Cardiovascular exam: Present: RRR, +S1, +S2. Absent: diastolic murmur, gallop, rubs, systolic murmur - Patient Status Disposition: Home, Self-Care - Discharge Instructions Instructions: Anemia (GEN) Follow Up With: Syeda Dubose CNP [Primary Care Provider] - 03/05/18 1:40 pm Randell Julian MD [Partnered Physician] - (Web Request entered.) - VTE Documentation of Mechanical Device: Intermittent pneumatic compression device
[2018-02-28 10:56] VITALS: BP 160/82
== END 2018-02-28 12:19 | disposition home or self-care (01) | DRG 378 ==
LOC: 3ANU → SUATTDRO 02-26 17:59
PROVIDERS: ADMIT Family Medicine; ATTEND Hospitalist

== ENCOUNTER 2018-03-02 16:32 | Observation (INO) ==
--- NOTE | 2018-03-02 22:34 | Internal Med History&Physical ---
Date of Encounter: 03/02/18 Time of Encounter: 22:25 Internal Medicine - H&P: HPI Admitted From: Emergency Dept Plans for Post Hospital Care: Home History of present illness: Mr. Almazan is a 77 year old male PmHx of anemia, [place], COPD, GERD, aortic aneurysm, GI bleed, vertigo, CAD and HTN. Pt states he woke up with RUE swelling. States he noticed that his wrist and hand were also painful. Pt was seen at [facility] and transfered here for further evalaution. Pt is s/p EGD 02/26/2018 for GI bleed. No definitive source was noted. At that time his hgb was 7.7 dropped from 9.8. Pt did get transfused rior to discharged and he was discharged on PPI and carafate. Pt also complained that is lower abdomen hurt. CODE STATUS: FULL RUE doppler showed IMPRESSION: There is an acute occlusive thrombus seen in the R cephalic forearm. It demonstrates incompressible vein. There is an acute occlusive thrombus seen in the R radial. it demonstrates incompressible vein was absent and it did not augment. LUE reveals fll patency and normal vessel compressibility of the left subclavian. Doppler sinals in the evaluated veins were normal. Work up at [facility] Vitals SBP 147/83, HR 71, RR 18, pulse 97. WBC 6.5, hgb 8.7, hct 27.0,mplt 178. Na 138, K 3.3, BUN 14, Cr 0.89. Past Med Surg Social Fam HX - Past Medical History Medical history: aortic aneurysm, arthritis, COPD, coronary artery disease, GERD , hyperlipidemia, hypertension, kidney stones, myocardial infarction, TIA, other Additional medical history: CAD. HTN. HLD. GERD. Ureteral stone Psychiatric history: anxiety, depression - Past Surgical History Surgical History: angioplasty/stent, appendectomy, herniorrhaphy, hip replacement, orthopedic, other, sinus surgery, other Additional surgical history: esophagus and stomach sx - Social History Smoking Status: Never smoker Smokeless Tobacco Status: No Alcohol use: none Drug use: none - Family History Father Name: Alonzo Almazan Living Status: Age at : 78 Cause of : cancer Hx Family Cardiac Disorders: No Hx Family Respiratory Disorders: Yes Hx Family Cancer: Yes (Hip cancer) Hx Family GI Disorders: No Hx Family Endocrine Disorder: No Hx Family Neuromuscular Disorders: No Hx Family Neurologic Disorders: No Hx Family HEENT Disorders: No Hx Family Autoimmune Disorders: No Internal Medicine - H&P: Meds Isosorbide MONOnitrate [Isosorbide Mononitrate] 30 mg PO DAILY 06/09/15 [History ] Tizanidine HCl 2 mg PO DAILY PRN 02/02/16 [History] Simvastatin [Zocor] 10 mg PO DAILY 02/05/16 [History] ALPRAZolam [Xanax 0.25 MG Tablet] 0.25 mg PO TID 06/11/17 [History] Albuterol Sulfate [Ventolin Hfa] 18 gm IH Q4HR PRN 06/11/17 [History] Fluticasone/Salmeterol [Advair 250-50 Diskus] 1 each IH BID 06/11/17 [History] Montelukast [Singulair] 10 mg PO HS 06/11/17 [History] Nitroglycerin [Nitrostat] 0.4 mg SL PER PKG DI 06/11/17 [History] Omeprazole [PriLOSEC] 40 mg PO DAILY 06/11/17 [History] metFORMIN [Glucophage] 500 mg PO BIDWM PRN 06/11/17 [History] Orphenadrine [Norflex] 100 mg PO Q12HR #20 tablet.er 11/23/17 [Rx] Methocarbamol [Robaxin-750] 750 mg PO QID PRN #40 tablet 02/11/18 [Rx] Clopidogrel [Plavix] 75 mg PO DAILY 02/26/18 [History] Finasteride [Proscar] 5 mg PO DAILY 02/26/18 [History] HYDROcodone/Acet 5/325 mg [[place] 5-325 mg] 1 tab PO Q6H PRN 02/26/18 [History] Lisinopril [Zestril] 40 mg PO DAILY 02/26/18 [History] Metoclopramide HCl 5 mg PO QID 02/26/18 [History] Ranitidine HCl [Zantac] 300 mg PO DAILY 02/26/18 [History] Tamsulosin [Flomax] 0.4 mg PO DAILY 02/26/18 [History] Tizanidine HCl 4 mg PO DAILY 02/26/18 [History] Sucralfate [Carafate] 1 gm PO TIDAC #90 c 02/28/18 [Rx] 3 Allergy/AdvReac Type Severity Reaction Status Date / Time Iodinated Contrast- Oral and Allergy Anaphylaxis Verified 03/02/18 13:04 IV Dye All Systems PM: A 10-system review of systems was performed and is negative for pertinent findings except as documented above in the HPI. - Head Head exam: Present: atraumatic, normocephalic - Eye Eye exam: Present: PERRL, conjuntiva pink, sclera anicteric Pupils: Present: PERRL - Neck Neck exam general surgery: Present: supple, trachea midline. Absent: lymphadenopathy - Respiratory Respiratory exam: Present: CTAB. Absent: accessory muscle use, rales, rhonchi, wheezes - Cardiovascular Cardiovascular exam: Present: RRR, +S1, +S2. Absent: diastolic murmur, gallop, rubs, systolic murmur - GI/Abdominal GI/Abdominal exam: Present: normal bowel sounds, soft, no peritoneal signs. Absent: distended, tenderness - Extremities Exam Extremities exam: Present: warm, radial pulses palpable and symmetrical. Absent : calf tenderness, cyanotic, pedal edema Additional comments: Right upper extremity edema. B/L edema - Neurological Exam Neurological exam: Present: CN II-XII intact, oriented X3, no focal deficits. Absent: pronater drift, facial droop, speech deficit - Skin Skin exam: Present: dry, intact Internal Med - H&P Results - Labs CBC & Chem 7: 03/02/18 22:37 - Assessment and plan (1) Deep venous thrombosis of upper extremity Current Visit: No Status: Acute Assessment and plan: Pt was recently discharged following a GI bleed he will likely not tolerate being on anticoagulation. Hgb today is 8.8. Will consult IR for possible IVF filter. Will monitor on telemetry. Pt can't have CTA due to history of anaphylaxis to contrast dye. Qualifiers: Affected thrombotic vein of extremity: radial Chronicity: acute Laterality: right Qualified Code(s): I82.621 - Acute embolism and thrombosis of deep veins of right upper extremity (2) GI bleed Current Visit: No Status: Acute Assessment and plan: s/p EGD 02/26/2018 due to GI bleed from unknown source. Will resume Carafate and PPI from his previous discharge. Qualifiers: GI bleed type/associated pathology: unspecified gastrointestinal hemorrhage type Qualified Code(s): K92.2 - Gastrointestinal hemorrhage, unspecified (3) Hypertension Current Visit: No Status: Chronic Assessment and plan: Imdur and Lisinopril Qualifiers: Hypertension type: essential hypertension Qualified Code(s): I10 - Essential (primary) hypertension (4) CAD (coronary artery disease) Current Visit: No Status: Chronic Assessment and plan: Zocor and Plavix Qualifiers: Coronary Disease-Associated Artery/Lesion type: unspecified vessel or lesion type [place] vs. transplanted heart: [place] heart Associated angina: angina presence unspecified Qualified Code(s): I25.10 - Atherosclerotic heart disease of [place] coronary artery without angina pectoris (5) Abdominal pain Current Visit: Yes Status: Acute Assessment and plan: Lower quadrant abdominal pain. Will check abdominal CT and will bladder scan Qualifiers: Qualified Code(s): R10.9 - Unspecified abdominal pain (6) Hypokalemia Current Visit: Yes Status: Acute Assessment and plan: Will give replacement and re check in am. - Time Spent With Patient Total time spent is greater than 50% in coordination of care (as documented) at patient's floor/unit and/or counseling patient: 25 - 35 minutes
[2018-03-02 22:52] LABS: Basophils % 0.5 %; Eosinophils # 0.1 K/mcL (0.0-0.6); Eosinophils % 1.9 %; Hematocrit 27.4 % (37.5-50.1); Hemoglobin 8.8 g/dL (12.9-16.9); Immature Granulocytes % 0.5 % (0-4); Lymphocytes # 1.8 K/mcL (0.6-4.6); Lymphocytes % 27.6 %; Mean Corpuscular HGB Conc 32.1 g/dL (31.6-35.5); Mean Corpuscular Hemoglobin 26.7 pg (28.0-33.3); Mean Platelet Volume 10.4 fL (9.4-12.4); Monocytes # 0.6 K/mcL (0.0-1.3); Monocytes % 8.7 %; Neutrophils # 3.9 K/mcL (1.6-8.9); Platelet Count 158 K/mcL (140-400); Red Cell Distribution Width 17.6 % (11.5-14.5); Segmented Neutrophils % 60.8 %
[2018-03-02 23:00] LABS: INR 1.2; Prothrombin Time 12.6 Seconds (9.4-12.1)
[2018-03-02] MEDS ORDERED: Isovue-370 500 ML INFUS..BTL IV ONE (23:06)
[2018-03-02 23:11] LABS: BUN/Creatinine Ratio 17 (6-26); Blood Urea Nitrogen 15 mg/dL (8-23); Carbon Dioxide 25 mEq/L (23-29); Chloride 107 mEq/L (98-107); Potassium 3.3 mEq/L (3.5-5.1); Sodium 138 mEq/L (136-145)
[2018-03-02 23:12] LABS: Calcium 8.2 mg/dL (8.6-10.3); Glucose 86 mg/dL (70-105); Osmolality,Calculated 286 (280-300); eGFR For African Americans > 60 (> 60); eGFR For Non-African Americans > 60 (> 60)
[2018-03-02] MEDS ORDERED: Acetaminophen 325 MG TABLET PO PRN (23:27)
[2018-03-02] MEDS ORDERED: Naloxone 0.4 MG/ML INJ IVP PRN (23:27)
[2018-03-02] MEDS ORDERED: Nitroglycerin 0.4 MG TAB.SUBL SL PRN (23:39)
[2018-03-02] MEDS ORDERED: Metoclopramide 10 MG/10 ML UD.LIQ PO PRN (23:42)
[2018-03-02] MEDS ORDERED: Methocarbamol 750 MG TABLET PO PRN (23:42)
[2018-03-03] MEDS: ALPRAZolam 0.25 MG TABLET PO PRN ×2 (00:31→22:38)
[2018-03-03 05:36] LABS: Basophils % 0.7 %; Eosinophils # 0.2 K/mcL (0.0-0.6); Hematocrit 27.3 % (37.5-50.1); Hemoglobin 8.8 g/dL (12.9-16.9); Immature Granulocytes % 0.2 % (0-4); Lymphocytes # 1.9 K/mcL (0.6-4.6); Lymphocytes % 34.8 %; Mean Corpuscular HGB Conc 32.2 g/dL (31.6-35.5); Mean Corpuscular Hemoglobin 26.2 pg (28.0-33.3); Mean Corpuscular Volume 81.3 fL (83.0-100.0); Monocytes # 0.5 K/mcL (0.0-1.3); Monocytes % 8.6 %; Neutrophils # 2.8 K/mcL (1.6-8.9); Platelet Count 173 K/mcL (140-400); Red Blood Count 3.36 M/mcL (4.19-5.50); Red Cell Distribution Width 17.6 % (11.5-14.5); Segmented Neutrophils % 52.7 %
[2018-03-03 06:13] LABS: BUN/Creatinine Ratio 17 (6-26); Blood Urea Nitrogen 13 mg/dL (8-23); Calcium 7.9 mg/dL (8.6-10.3); Carbon Dioxide 23 mEq/L (23-29); Chloride 110 mEq/L (98-107); Glucose 86 mg/dL (70-105); Osmolality,Calculated 285 (280-300); Potassium 3.7 mEq/L (3.5-5.1); Sodium 138 mEq/L (136-145); eGFR For African Americans > 60 (> 60); eGFR For Non-African Americans > 60 (> 60)
[2018-03-03] MEDS: *HR* HYDROcodone/Acet 5/325 mg TABLET PO PRN (06:21)
[2018-03-03 08:17] LABS: Bilirubin,Urine Negative (Negative); Blood,Urine Trace-intact (Negative); Clarity,Urine Clear (Clear); Color,Urine Yellow (Yellow); Glucose,Urine (UA) Normal (Normal); Ketones,Urine Negative (Negative); Leukocyte Esterase,Urine Trace (Negative); Nitrite,Urine Negative (Negative); PH,Urine 7.5 pH Units (5.0-8.0); Protein,Urine Negative (Neg-Trace); Specific Gravity,Urine 1.015 (1.010-1.025); Urobilinogen,Urine Normal (Normal)
[2018-03-03 08:28] LABS: Bacteria,Urine Few per hpf (None-Few); RBC,Urine 0-3 per hpf (0-3); WBC,Urine 0-3 per hpf (0-3)
[2018-03-03] MEDS: Sucralfate 1 GM TABLET PO SCH ×4 (08:51→22:36)
[2018-03-03] MEDS: Finasteride 5 MG TABLET PO SCH (08:51)
[2018-03-03] MEDS: Isosorbide MONOnitrate (24 HR) 30 MG TAB.ER.24H PO SCH (08:51)
[2018-03-03] MEDS: Lisinopril 20 MG TABLET PO SCH (08:51)
[2018-03-03] MEDS ORDERED: NON-FORMULARY MEDICATION 1 EACH EACH (Omeprazole [Prilosec] 40 MG) PO SCH (09:00)
[2018-03-03] MEDS ORDERED: Lisinopril 20 MG TABLET PO SCH (09:00)
--- NOTE | 2018-03-03 10:40 | Internal Med Progress Note ---
Date of Encounter: 03/03/18 Time of Encounter: 10:34 - Assessment and plan (1) DVT (deep venous thrombosis) Current Visit: Yes Status: Acute Assessment and plan: 1. RUE small distal DVT, SInce the DVT was distal and superficial thrombosis is likley form IV trauma, I spoke to hematology oncall Dr Phan, he recommended no indications for filter, repeat duplex in 4-6 week at PCP office, supportive care , cold pack. Patient is doing well, RUE swelling resolved no pain no redness. Qualifiers: DVT location: upper extremity Affected thrombotic vein of extremity: radial Chronicity: acute Laterality: right Qualified Code(s): I82.621 - Acute embolism and thrombosis of deep veins of right upper extremity (2) Hypertension Current Visit: Yes Status: Chronic Assessment and plan: Continue home meds Qualifiers: Hypertension type: essential hypertension Qualified Code(s): I10 - Essential (primary) hypertension (3) CAD (coronary artery disease) Current Visit: Yes Status: Chronic Assessment and plan: Continue home meds Qualifiers: Coronary Disease-Associated Artery/Lesion type: unspecified vessel or lesion type [place] vs. transplanted heart: [place] heart Associated angina: angina presence unspecified Qualified Code(s): I25.10 - Atherosclerotic heart disease of [place] coronary artery without angina pectoris (4) GI bleed Current Visit: Yes Status: Acute Assessment and plan: Had a EGD and a colonoscopy on 02/26 no clear bleeding source identified. Hemoglobin has been stable Qualifiers: GI bleed type/associated pathology: unspecified gastrointestinal hemorrhage type Qualified Code(s): K92.2 - Gastrointestinal hemorrhage, unspecified (5) Anemia Current Visit: Yes Status: Acute Assessment and plan: Anemia of Acute GI bleeding, stable continue PPI Qualifiers: Anemia type: unspecified type Qualified Code(s): D64.9 - Anemia, unspecified (6) Abdominal pain Current Visit: Yes Status: Acute Assessment and plan: Pending CT abdomen, we will do chest CT to r/o PNA, mass Qualifiers: Qualified Code(s): R10.9 - Unspecified abdominal pain - Time Spent With Patient Total time spent is greater than 50% in coordination of care (as documented) at patient's floor/unit and/or counseling patient: Greater than 35 minutes - Subjective Interval history: Mr. Almazan is a 77 year old male PmHx of anemia, [place], COPD, GERD, aortic aneurysm, GI bleed, vertigo, CAD and HTN. Pt states he woke up with RUE swelling. States he noticed that his wrist and hand were also painful.Pt was seen at [place] and transfered here for further evalaution. Duplex showed RUE Acute DVT at rt radial vein and rt superficail cephalic vein thrombosis. Pt is s/p EGD and colonoscopy on 02/26/2018 for GI bleed. No definitive source was noted. At that time his hgb was 7.7 dropped from 9.8. had 2 units of transfusion and discharged on PPI and carafate. unable to start systmeic AC due to recent GI bleeding. 1. RUE small distal DVT, SInce the DVT was distal and superficial thrombosis is likley form IV trauma, I spoke to hematology oncall Dr Phan, he recommended no indications for filter, repeat duplex in 4-6 week at PCP office, supportive care , cold pack. Patient is doing well, RUE swelling resolved no pain no redness. 2.pending duplex LE 3.abdominal pain, pending abdomen CT, CT of chest possible discharge tomorrow if work up are negative - Constitutional Vitals: Temp Pulse Resp BP Pulse Ox 98.5 F 68 18 132/62 99 03/03/18 06:49 03/03/18 06:49 03/03/18 06:49 03/03/18 06:49 03/03/18 06:49 General appearance: Present: A&O X 3, pleasant, answers questions appropriately Exam: CONSTITUTIONAL: patient appears as an age appropriate male in no acute distress. EYES Clear sclerae, bilateral pupils are equal, reactive to light. EMOI. RESPIRATORY: No accessory muscle use, bilateral clear to auscultation, no wheezing, no crackles/rales. CARDIOVASCULAR: Regular heart rate, normal S1 and S2, no murmurs GASTROINTESTINAL: bowel sounds present, soft, no tenderness. MUSCULOSKELETAL: Joints in normal range of motion, no clubbing, no edema, no cyanosis. Bilateral peripheral pulses 2+. NEUROLOGIC: CN II to XII are grossly intact, no focal neurological deficit. Internal Medicine: Result - Labs CBC & Chem 7: 03/03/18 05:15 03/03/18 05:15 Labs: Short CBC 03/02/18 03/03/18 Range/Units 22:37 05:15 WBC 6.4 5.4 (4.3-11.1) K/mcL Hgb 8.8 L 8.8 L (12.9-16.9) g/dL Hct 27.4 L 27.3 L (37.5-50.1) % Plt Count 158 173 (140-400) K/mcL Neutrophils # 3.9 2.8 (1.6-8.9) K/mcL BMP 03/02/18 03/03/18 22:37 05:15 Sodium 138 138 Potassium 3.3 L 3.7 Chloride 107 110 H Carbon Dioxide 25 23 BUN 15 13 Creatinine 0.86 0.77 Glucose 86 86 Calcium 8.2 L 7.9 L Urine 03/03/18 Range/Units 07:41 Urine Color Yellow (Yellow) Urine Clarity Clear (Clear) Urine pH 7.5 (5.0-8.0) pH Units Ur Specific [place] 1.015 (1.010-1.025) Urine Protein Negative (Neg-Trace) mg/dL Urine Glucose (UA) Normal (Normal) mg/dL - ABG Interpretation ABG results: PT/INR, D-dimer PT 12.6 Seconds (9.4-12.1) H 03/02/18 22:37 - VTE Reasons for not Prescribing Prophylaxis: Medical contraindication Consult Discharge Plan - Plan Referrals: Syeda Dubose, [facility] [Primary Care Provider] -
[2018-03-04 07:35] LABS: Basophils % 0.7 %; Eosinophils # 0.2 K/mcL (0.0-0.6); Hematocrit 26.5 % (37.5-50.1); Hemoglobin 8.5 g/dL (12.9-16.9); Immature Granulocytes % 0.2 % (0-4); Lymphocytes # 1.4 K/mcL (0.6-4.6); Lymphocytes % 26.7 %; Mean Corpuscular HGB Conc 32.1 g/dL (31.6-35.5); Mean Corpuscular Hemoglobin 26.6 pg (28.0-33.3); Mean Corpuscular Volume 83.1 fL (83.0-100.0); Mean Platelet Volume 10.5 fL (9.4-12.4); Monocytes # 0.4 K/mcL (0.0-1.3); Monocytes % 7.3 %; Neutrophils # 3.3 K/mcL (1.6-8.9); Platelet Count 181 K/mcL (140-400); Red Blood Count 3.19 M/mcL (4.19-5.50); Red Cell Distribution Width 17.4 % (11.5-14.5); Segmented Neutrophils % 62.1 %
[2018-03-04 07:55] LABS: BUN/Creatinine Ratio 22 (6-26); Blood Urea Nitrogen 18 mg/dL (8-23); Calcium 8.1 mg/dL (8.6-10.3); Carbon Dioxide 27 mEq/L (23-29); Chloride 107 mEq/L (98-107); Glucose 104 mg/dL (70-105); Magnesium 1.9 mg/dL (1.6-2.6); Osmolality,Calculated 288 (280-300); Potassium 3.4 mEq/L (3.5-5.1); Sodium 138 mEq/L (136-145); eGFR For African Americans > 60 (> 60); eGFR For Non-African Americans > 60 (> 60)
[2018-03-04] MEDS: Lisinopril 20 MG TABLET PO SCH (08:43)
[2018-03-04] MEDS: Finasteride 5 MG TABLET PO SCH (08:43)
[2018-03-04] MEDS: Sucralfate 1 GM TABLET PO SCH ×4 (08:43→22:28)
[2018-03-04] MEDS: Isosorbide MONOnitrate (24 HR) 30 MG TAB.ER.24H PO SCH (08:43)
--- NOTE | 2018-03-04 14:36 | Internal Med Progress Note ---
Date of Encounter: 03/04/18 Time of Encounter: 14:29 - Assessment and plan (1) DVT (deep venous thrombosis) Current Visit: Yes Status: Acute Assessment and plan: His DVT happened in the distal portion of right upper extremity. Oncology/ hematology was consulted. We do not recommend any filters for this patient. He will not get any anticoagulation due to his recent history of GI bleeding.The swelling is nearly gone. Qualifiers: DVT location: upper extremity Affected thrombotic vein of extremity: radial Chronicity: acute Laterality: right Qualified Code(s): I82.621 - Acute embolism and thrombosis of deep veins of right upper extremity (2) GI bleed Current Visit: Yes Status: Acute Assessment and plan: This patient experienced a significant GI bleeding at the beginning of this month. He was transfused with two units of packed red blood cells. He underwent upper and lower endoscopy. He does have GERD with severe esophagitis. Will continue proton pump inhibitor and Carafate. He does have significant diverticuloses of the sigmoid colon. A small non- bleeding polyp was removed. I think, this patient could have diverticula bleeding. Will repeat his hemoglobin tomorrow morning. Qualifiers: GI bleed type/associated pathology: unspecified gastrointestinal hemorrhage type Qualified Code(s): K92.2 - Gastrointestinal hemorrhage, unspecified (3) Acute blood loss anemia Current Visit: Yes Status: Acute Assessment and plan: See above. There is no evidence for GI bleeding at this time. Will repeat his hemoglobin tomorrow morning. (4) Lung infiltrate Current Visit: Yes Status: Acute Assessment and plan: The patient doesn't have any symptoms/signs suggesting pneumonia or other pulmonary process. Will repeat his chest x-ray tomorrow morning. (5) Infiltrate of lung present on imaging of chest Current Visit: Yes Status: Acute (6) AAA (abdominal aortic aneurysm) Current Visit: Yes Status: Acute Assessment and plan: Currently it is for centimeter in diameter. The patient will need to CAT scan of the abdomen every year. Qualifiers: Presence of rupture: without rupture Qualified Code(s): I71.4 - Abdominal aortic aneurysm, without rupture - Time Spent With Patient Total time spent is greater than 50% in coordination of care (as documented) at patient's floor/unit and/or counseling patient: 25 - 35 minutes - Subjective Interval history: The patient feels weak. He was able to go to the restroom today. He feels short of breath, when walking. He was not using oxygen at home. His pulse ox on room air today is 90%. Denies chest pain. Denies coughing and wheezing. He continues to have diffuse abdominal pain - started about a week ago. the pain is worse when he is sitting up from supine position. He seems to have normal bowel movements. He has not seen any blood or black discoloration of his stool recently. He has normal urination. The swelling of distal portion of his right upper extremity is nearly gone. He has never had DVT. He has not been diagnosed with any kind of cancer. The patient had upper and lower endoscopy done at the beginning of this month. It showed stage D esophagitis. It showed diverticulosis of sigmoid colon. Small nonbleeding polyp was removed. - Constitutional Vitals: Temp Pulse Resp BP Pulse Ox 98.2 F 72 18 125/55 98 03/04/18 10:56 03/04/18 10:56 03/04/18 10:56 03/04/18 10:56 03/04/18 10:56 General appearance: Present: A&O X 3, pleasant, answers questions appropriately - Respiratory Respiratory exam: Present: CTAB. Absent: accessory muscle use, rales, rhonchi, wheezes - Cardiovascular Cardiovascular exam: Present: RRR, +S1, +S2. Absent: diastolic murmur, gallop, rubs, systolic murmur - GI/Abdominal GI/Abdominal exam: Present: normal bowel sounds, soft, no peritoneal signs. Absent: distended, mass Additional comments: There is mild tenderness in all 4 quadrants. - Skin Skin exam: Present: dry, intact Internal Medicine: Result - Labs CBC & Chem 7: 03/04/18 06:48 03/04/18 06:48 Labs: Short CBC 03/04/18 Range/Units 06:48 WBC 5.4 (4.3-11.1) K/mcL Hgb 8.5 L (12.9-16.9) g/dL Hct 26.5 L (37.5-50.1) % Plt Count 181 (140-400) K/mcL Neutrophils # 3.3 (1.6-8.9) K/mcL BMP 03/04/18 06:48 Sodium 138 Potassium 3.4 L Chloride 107 Carbon Dioxide 27 BUN 18 Creatinine 0.81 Glucose 104 Calcium 8.1 L - ABG Interpretation ABG results: PT/INR, D-dimer PT 12.6 Seconds (9.4-12.1) H 03/02/18 22:37 - Impressions Impressions Abdomen/Pelvis CT 03/03/18 00:07 IMPRESSION: 1. Left lower lobe pulmonary infiltrate consistent with pneumonia. This is new compared with the previous evaluation. Stable changes of emphysema. 2. Stable left upper lobe pulmonary nodule which contains some flecks of calcification. Stable granulomatous disease and calcified nodes in the mediastinum. 3. Mild ascending aortic aneurysm which measures 4 cm in diameter stable compared with the previous evaluation. 4. Bilateral nephrolithiasis but no obstructive uropathy. 5. Abdominal aortic aneurysm measures 4 cm slightly up from 3.6 cm previously. 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 RECOMMENDATIONS: Managing Abdominal Aortic Aneurysms 2.6-2.9 cm: Every 5 years* 3.0-3.4 cm: Every 3 years. 3.5-3.9 cm: Every 1 year. 4.0-4.4 cm: Every 1 year. Recommend vascular consultation. 4.5-5.4 cm: Every 6 months. Recommend vascular consultation. Greater than or equal to 5.5 cm: Referral to vascular surgeon. *For abdominal aortas with maximum diameter of 2.6-2.9 cm meeting criteria for AAA (>50% of proximal normal segment). Reference: J Vasc Surg. 2008;50(4 Suppl):S2-49 D/ / 03/03/2018 18:55:29 Malou Gomez MD / [facility] Interpreting Provider: Malou Gomez MD Chest CT 03/03/18 00:07 IMPRESSION: 1. Left lower lobe pulmonary infiltrate consistent with pneumonia. This is new compared with the previous evaluation. Stable changes of emphysema. 2. Stable left upper lobe pulmonary nodule which contains some flecks of calcification. Stable granulomatous disease and calcified nodes in the mediastinum. 3. Mild ascending aortic aneurysm which measures 4 cm in diameter stable compared with the previous evaluation. 4. Bilateral nephrolithiasis but no obstructive uropathy. 5. Abdominal aortic aneurysm measures 4 cm slightly up from 3.6 cm previously. 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 RECOMMENDATIONS: Managing Abdominal Aortic Aneurysms 2.6-2.9 cm: Every 5 years* 3.0-3.4 cm: Every 3 years. 3.5-3.9 cm: Every 1 year. 4.0-4.4 cm: Every 1 year. Recommend vascular consultation. 4.5-5.4 cm: Every 6 months. Recommend vascular consultation. Greater than or equal to 5.5 cm: Referral to vascular surgeon. *For abdominal aortas with maximum diameter of 2.6-2.9 cm meeting criteria for AAA (>50% of proximal normal segment). Reference: J Vasc Surg. 2009 Jun;50(4 Suppl):S2-49 D/ / 03/03/2018 18:55:29 Malou Gomez MD / [facility] Interpreting Provider: Malou Gomez MD - VTE Reasons for not Prescribing Prophylaxis: Medical contraindication Deep Vein Thrombosis/Pulmonary Embolism Present on Admission: No Consult Discharge Plan - Plan Referrals: Syeda Dubose, [employer] [Primary Care Provider] -
[2018-03-04] MEDS ORDERED: *HR* HYDROcodone/Acet 5/325 mg TABLET PO PRN (14:50)
[2018-03-04] MEDS ORDERED: Nitroglycerin 0.4 MG TAB.SUBL SL PRN (14:50)
[2018-03-04] MEDS ORDERED: tiZANidine 4 MG TABLET PO PRN (14:50)
[2018-03-04] MEDS: *HR* HYDROcodone/Acet 5/325 mg TABLET PO PRN (16:12)
[2018-03-04] MEDS ORDERED: Famotidine 20 MG TABLET PO SCH (21:00)
[2018-03-04] MEDS: ALPRAZolam 0.25 MG TABLET PO PRN (22:29)
[2018-03-04] MEDS: Budesonide/Formoterol 80/4.5 MDI IH SCH (22:41)
[2018-03-05 06:00] LABS: Hematocrit 28.8 % (37.5-50.1); Mean Corpuscular HGB Conc 31.3 g/dL (31.6-35.5); Mean Corpuscular Hemoglobin 26.2 pg (28.0-33.3); Mean Corpuscular Volume 83.7 fL (83.0-100.0); Mean Platelet Volume 9.8 fL (9.4-12.4); Platelet Count 199 K/mcL (140-400); Red Blood Count 3.44 M/mcL (4.19-5.50); Red Cell Distribution Width 17.4 % (11.5-14.5)
[2018-03-05 06:37] VITALS: BP 119/61
[2018-03-05] MEDS: Budesonide/Formoterol 80/4.5 MDI IH SCH (07:40)
[2018-03-05] MEDS: Finasteride 5 MG TABLET PO SCH (08:17)
[2018-03-05] MEDS: Isosorbide MONOnitrate (24 HR) 30 MG TAB.ER.24H PO SCH (08:18)
[2018-03-05] MEDS: Sucralfate 1 GM TABLET PO SCH (08:18)
[2018-03-05] MEDS: Lisinopril 20 MG TABLET PO SCH (08:18)
[2018-03-05] MEDS ORDERED: Finasteride 5 MG TABLET PO SCH (09:00)
[2018-03-05] MEDS ORDERED: NON-FORMULARY MEDICATION 1 EACH EACH (Simvastatin [Zocor] 10 MG) PO SCH (09:00)
[2018-03-05] MEDS ORDERED: ISOSORBIDE MONONITRATE PO SCH (09:00)
--- NOTE | 2018-03-05 14:41 | Discharge Summary ---
- NOTES TO OUTPATIENT PROVIDER Notes to Outpatient Provider: The patient was admitted to the hospital after he had developed DVT in distal portion of right upper extremity. He had a GI bleeding at the beginning of her February of this year. We talked to Dr. Phan, hematology/oncology. We decided not to give him anticoagulation. We decided not to put superior vena cava filter. We did not see GI bleed during this hospitalization. Swelling and pain in distal portion of the right upper extremity subsided. The patient has abdominal aortic aneurysm with diameter of 4 cm. Follow-up CT of abdomen in one year. We recommend vascular surgery consult, outpatient. Date of Encounter: 03/05/18 Time of Encounter: 14:38 - Discharge Diagnosis (1) DVT (deep venous thrombosis) Priority: Primary Status: Acute Qualifiers: DVT location: upper extremity Affected thrombotic vein of extremity: radial Chronicity: acute Laterality: right Qualified Code(s): I82.621 - Acute embolism and thrombosis of deep veins of right upper extremity (2) GI bleed Priority: Secondary Status: Acute Qualifiers: GI bleed type/associated pathology: unspecified gastrointestinal hemorrhage type Qualified Code(s): K92.2 - Gastrointestinal hemorrhage, unspecified (3) Acute blood loss anemia Priority: Secondary Status: Acute (4) Lung infiltrate Priority: Secondary Status: Resolved (5) AAA (abdominal aortic aneurysm) Priority: Secondary Status: Chronic Qualifiers: Presence of rupture: without rupture Qualified Code(s): I71.4 - Abdominal aortic aneurysm, without rupture Hospital course: Mr. Almazan is a 77 year old male. The patient was admitted to the hospital after he had developed DVT in distal portion of right upper extremity. He had a GI bleeding at the beginning of February of this year. We talked to Dr. Phan, hematology/oncology. We decided not to give him anticoagulation. We decided not to put superior vena cava filter. We did not see GI bleed during this hospitalization. Swelling and pain in distal portion of the right upper extremity subsided. The patient has abdominal aortic aneurysm with diameter of 4 cm. Follow-up CT of abdomen in one year. We recommend vascular surgery consult, outpatient. Discharge discussed with: patient, family, nurse, case management - Time Spent with Patient Total time spent providing and/or coordinating discharge services: Greater than 30 minutes (40 MINUTES.) - Discharge Medications Home Medications: Isosorbide MONOnitrate [Isosorbide Mononitrate] 30 mg PO DAILY 06/09/15 [History ] Simvastatin [Zocor] 10 mg PO DAILY 02/05/16 [History] ALPRAZolam [Xanax 0.25 MG Tablet] 0.25 mg PO TID 06/11/17 [History] Albuterol Sulfate [Ventolin Hfa] 2 puff IH Q4HR PRN 06/11/17 [History] Fluticasone/Salmeterol [Advair 250-50 Diskus] 1 each IH BID 06/11/17 [History] Montelukast [Singulair] 10 mg PO HS 06/11/17 [History] Nitroglycerin [Nitrostat] 0.4 mg SL Q5M PRN 06/11/17 [History] Omeprazole [PriLOSEC] 40 mg PO DAILY 06/11/17 [History] metFORMIN [Glucophage] 500 mg PO BIDWM PRN 06/11/17 [History] Orphenadrine [Norflex] 100 mg PO Q12HR #20 tablet.er 11/23/17 [Rx] Methocarbamol [Robaxin-750] 750 mg PO QID PRN #40 tablet 02/11/18 [Rx] Clopidogrel [Plavix] 75 mg PO DAILY 02/26/18 [History] Finasteride [Proscar] 5 mg PO DAILY 02/26/18 [History] HYDROcodone/Acet 5/325 mg [[place] 5-325 mg] 1 tab PO Q6H PRN 02/26/18 [History] Lisinopril [Zestril] 40 mg PO DAILY 02/26/18 [History] Metoclopramide HCl 5 mg PO QID 02/26/18 [History] Ranitidine HCl [Zantac] 300 mg PO BID 02/26/18 [History] Tamsulosin [Flomax] 0.4 mg PO DAILY 02/26/18 [History] Tizanidine HCl 2 mg PO Q8H PRN 02/26/18 [History] Sucralfate [Carafate] 1 gm PO TIDAC #90 udc 02/28/18 [Rx] Metoclopramide [Reglan] 5 mg PO QIDAC tablet 03/05/18 [Rx] Allergies/Adverse Reactions: 3 Allergy/AdvReac Type Severity Reaction Status Date / Time Iodinated Contrast- Oral and Allergy Anaphylaxis Verified 03/02/18 13:04 IV Dye Date of admission: 03/02/18 20:03 Primary care physician: Syeda Dubose CNP Discharging clinician: Yusef Salazar Anticipated date of discharge: 03/05/18 - Constitutional Vitals: Temp Pulse Resp BP Pulse Ox 97.7 F 60 16 119/61 95 03/05/18 06:34 03/05/18 06:34 03/05/18 07:40 03/05/18 06:34 03/05/18 07:40 General appearance: Present: A&O X 3, pleasant, answers questions appropriately - Respiratory Respiratory exam: Present: CTAB. Absent: accessory muscle use, rales, rhonchi, wheezes - Cardiovascular Cardiovascular exam: Present: RRR, +S1, +S2. Absent: diastolic murmur, gallop, rubs, systolic murmur - Skin Skin exam: Present: dry, intact - Patient Status Disposition: Home, Self-Care Condition: Good Functional capacity at discharge: independent ambulation Overall status at discharge: patient is back to baseline - Discharge Instructions Follow Up With: Syeda Dubose CNP [Primary Care Provider] - 03/09/18 1:00 pm - Diet and Activity Activity: resume usual activities as tolerated - VTE Reasons for not Prescribing Prophylaxis: Medical contraindication Deep Vein Thrombosis/Pulmonary Embolism Present on Admission: No
== END 2018-03-05 16:01 | disposition home or self-care (01) ==
LOC: 2NENU → SUATTDRO 20:03
PROVIDERS: ADMIT Hospitalist; ATTEND Internal Medicine

== ENCOUNTER 2018-03-25 11:33 | Inpatient (IN) ==
--- NOTE | 2018-03-25 12:12 | Emergency Department Note ---
Disposition Clinical Impression: AAA (abdominal aortic aneurysm) Qualifiers: Presence of rupture: without rupture Qualified Code(s): I71.4 - Abdominal aortic aneurysm, without rupture Disposition: Still a Patient Referrals: Syeda Dubose CNP [Primary Care Provider] - General Adult HPI - General Chief complaint: ED GI Bleed Stated complaint: back pain, rectal bleeding Time Seen by Provider: 03/25/18 11:38 Source: patient, family Limitations: no limitations - History of Present Illness Pain Scale: 9 - Related Data Home Medications Medication Instructions Recorded Confirmed Isosorbide MONOnitrate [Isosorbide 30 mg PO DAILY 06/09/15 03/23/18 Mononitrate] Simvastatin [Zocor] 10 mg PO DAILY 02/05/16 03/23/18 ALPRAZolam [Xanax 0.25 MG Tablet] 0.25 mg PO TID 06/11/17 03/23/18 Albuterol Sulfate [Ventolin Hfa] 2 puff IH Q4HR PRN 06/11/17 03/23/18 Fluticasone/Salmeterol [Advair 1 each IH BID 06/11/17 03/23/18 250-50 Diskus] Montelukast [Singulair] 10 mg PO HS 06/11/17 03/23/18 Nitroglycerin [Nitrostat] 0.4 mg SL Q5M PRN 06/11/17 03/23/18 Omeprazole [PriLOSEC] 40 mg PO DAILY 06/11/17 03/23/18 metFORMIN [Glucophage] 500 mg PO BIDWM PRN 06/11/17 03/23/18 Clopidogrel [Plavix] 75 mg PO DAILY 02/26/18 03/23/18 Finasteride [Proscar] 5 mg PO DAILY 02/26/18 03/23/18 Lisinopril [Zestril] 40 mg PO DAILY 02/26/18 03/23/18 Metoclopramide HCl 5 mg PO QID 02/26/18 03/23/18 Ranitidine HCl [Zantac] 300 mg PO BID 02/26/18 03/23/18 Tamsulosin [Flomax] 0.4 mg PO DAILY 02/26/18 03/23/18 Tizanidine HCl 2 mg PO Q8H PRN 02/26/18 03/23/18 Previous Rx's Medication Instructions Recorded Orphenadrine [Norflex] 100 mg PO Q12HR #20 tablet.er 11/23/17 Methocarbamol [Robaxin-750] 750 mg PO QID PRN #40 tablet 02/11/18 Sucralfate [Carafate] 1 gm PO TIDAC #90 udc 02/28/18 Metoclopramide [Reglan] 5 mg PO QIDAC tablet 03/05/18 Allergies Allergy/AdvReac Type Severity Reaction Status Date / Time Iodinated Contrast- Oral and Allergy Anaphylaxis Verified 03/23/18 16:13 IV Dye Past Medical History - Past Medical History Medical history: Reports: aortic aneurysm, arthritis, COPD, coronary artery disease, GERD, hyperlipidemia, hypertension, kidney stones, myocardial infarction, TIA, other Surgical history: Reports: angioplasty/stent, appendectomy, herniorrhaphy, hip replacement, orthopedic, other, sinus surgery, other Psychiatric history: Reports: anxiety, depression - Social History Smoking Status: Never smoker Smokeless Tobacco Status: No Alcohol use: Reports: none Drug use: Reports: none Physical Exam - General Limitations: no limitations General appearance: alert, in no apparent distress Course - Reevaluation(s) Reevaluation #1: Attestation note I examined this patient and my medical decision-making was reviewed with the emergency medicine resident. I agree with the documented findings, disposition and treatment plan as described except to the extent set forth below. Patient seen with emergency medicine resident Dr. Nicolás Krueger, Please see a copy of his note for details of the H&P, ED evaluation, management and disposition. I have independently evaluated the patient and confirmed appropriate portions of the history and physical exam. Briefly: 77-year-old male history of aortic abdominal aneurysm presents with blood in urine and stool. He has back pain. We are certainly concerned about actively leaking rupturing AAA. Patient is getting blood type and screened screening labs since he has anaphylaxis to IV contrast dye he screening abdominal pelvic CT with no contrast. Patient will be getting 2 large bore IVs. Providing 45 minutes critical care service this patient. Disposition pending. Time: 12:10 Vital Signs Temperature 97.5 F L 03/25/18 11:34 Pulse Rate 86 03/25/18 11:34 Respiratory Rate 20 03/25/18 11:34 Blood Pressure 138/69 03/25/18 11:34 O2 Sat by Pulse Oximetry 96 03/25/18 11:34 Temperature 97.5 F L 03/25/18 11:43 Pulse Rate 72 03/25/18 12:01 Respiratory Rate 24 03/25/18 12:01 Blood Pressure 144/77 03/25/18 12:01 O2 Sat by Pulse Oximetry 100 03/25/18 12:01 Oxygen Delivery Oxygen Delivery Room Air
[2018-03-25 12:46] LABS: Basophils # 0.1 K/mcL (0.0-0.2); Basophils % 0.4 %; Eosinophils % 0.1 %; Hematocrit 21.8 % (37.5-50.1); Hemoglobin 6.9 g/dL (12.9-16.9); Immature Granulocytes % 0.5 % (0-4); Lymphocytes # 2.7 K/mcL (0.6-4.6); Lymphocytes % 20.5 %; Mean Corpuscular HGB Conc 31.7 g/dL (31.6-35.5); Mean Corpuscular Hemoglobin 26.5 pg (28.0-33.3); Mean Corpuscular Volume 83.8 fL (83.0-100.0); Mean Platelet Volume 9.1 fL (9.4-12.4); Monocytes # 0.8 K/mcL (0.0-1.3); Monocytes % 5.8 %; Neutrophils # 9.5 K/mcL (1.6-8.9); Platelet Count 376 K/mcL (140-400); Red Cell Distribution Width 17.3 % (11.5-14.5); Segmented Neutrophils % 72.7 %
[2018-03-25 12:54] LABS: INR 1.1; Prothrombin Time 12.4 Seconds (9.4-12.1)
[2018-03-25 12:57] LABS: Activated Partial Thrombo Time 27.1 Seconds (26.0-36.0)
[2018-03-25 12:58] LABS: Bilirubin,Urine Negative (Negative); Blood,Urine Negative (Negative); Clarity,Urine Clear (Clear); Color,Urine Yellow (Yellow); Glucose,Urine (UA) Normal (Normal); Ketones,Urine Negative (Negative); Leukocyte Esterase,Urine Small (Negative); Nitrite,Urine Negative (Negative); Protein,Urine Negative (Neg-Trace); Specific Gravity,Urine 1.028 (1.010-1.025); Urobilinogen,Urine Normal (Normal)
[2018-03-25 13:02] LABS: Bacteria,Urine None Seen per hpf (None-Few); Hyaline Casts,Urine Few per lpf (None-Few); RBC,Urine 0-3 per hpf (0-3); Squamous Epithelial Cell,Urine Many per lpf (None-Few); WBC,Urine 0-3 per hpf (0-3)
[2018-03-25 13:03] LABS: BUN/Creatinine Ratio 52 (6-26); Blood Urea Nitrogen 56 mg/dL (8-23); Calcium 9.1 mg/dL (8.6-10.3); Carbon Dioxide 20 mEq/L (23-29); Chloride 108 mEq/L (98-107); Glucose 154 mg/dL (70-105); Osmolality,Calculated 303 (280-300); Sodium 137 mEq/L (136-145); eGFR For African Americans > 60 (> 60); eGFR For Non-African Americans > 60 (> 60)
[2018-03-25] MEDS ORDERED: Pantoprazole 40 MG VIAL IVP ONE (13:45)
--- NOTE | 2018-03-25 13:50 | Emergency Department Note ---
Disposition Clinical Impression: AAA (abdominal aortic aneurysm) Qualifiers: Presence of rupture: without rupture Qualified Code(s): I71.4 - Abdominal aortic aneurysm, without rupture GI bleed Qualifiers: GI bleed type/associated pathology: unspecified gastrointestinal hemorrhage type Qualified Code(s): K92.2 - Gastrointestinal hemorrhage, unspecified Anemia Qualifiers: Anemia type: unspecified type Qualified Code(s): D64.9 - Anemia, unspecified Disposition: Admitted As Inpatient Condition: Good Referrals: Syeda Dubose [employer] [Primary Care Provider] - Forms: ED Satisfaction Letter Time of Disposition: 14:12 General Adult HPI - General Chief complaint: ED GI Bleed Stated complaint: back pain, rectal bleeding Time Seen by Provider: 03/25/18 11:38 Source: patient, family Limitations: no limitations Nursing Notes Reviewed: Yes Vital Signs Reviewed: Yes - History of Present Illness HPI Narrative: Patient is a 77-year-old male is coming in to the emergency department for back pain, hematuria or and hematochezia. Patient states that he has been having left flank and back pain. States that he was seen his primary care provider and they did an x-ray which showed enlargement of his aortic aneurysm. Patient states that he has been passing blood in his stool and his urine. Patient states that his stool has been dark black in color as well as bright red. Patient denies any chest pain, shortness of breath, vomiting. Patient states that due to having the back pain and told that he has an aneurysm he felt that he should come and be seen. Pain Scale: 8 - Related Data Home Medications Medication Instructions Recorded Confirmed Isosorbide MONOnitrate [Isosorbide 30 mg PO DAILY 06/09/15 03/23/18 Mononitrate] Simvastatin [Zocor] 10 mg PO DAILY 02/05/16 03/23/18 ALPRAZolam [Xanax 0.25 MG Tablet] 0.25 mg PO TID 06/11/17 03/23/18 Albuterol Sulfate [Ventolin Hfa] 2 puff IH Q4HR PRN 06/11/17 03/23/18 Fluticasone/Salmeterol [Advair 1 each IH BID 06/11/17 03/23/18 250-50 Diskus] Montelukast [Singulair] 10 mg PO HS 06/11/17 03/23/18 Nitroglycerin [Nitrostat] 0.4 mg SL Q5M PRN 06/11/17 03/23/18 Omeprazole [PriLOSEC] 40 mg PO DAILY 06/11/17 03/23/18 metFORMIN [Glucophage] 500 mg PO BIDWM PRN 06/11/17 03/23/18 Clopidogrel [Plavix] 75 mg PO DAILY 02/26/18 03/23/18 Finasteride [Proscar] 5 mg PO DAILY 02/26/18 03/23/18 Lisinopril [Zestril] 40 mg PO DAILY 02/26/18 03/23/18 Metoclopramide HCl 5 mg PO QID 02/26/18 03/23/18 Ranitidine HCl [Zantac] 300 mg PO BID 02/26/18 03/23/18 Tamsulosin [Flomax] 0.4 mg PO DAILY 02/26/18 03/23/18 Tizanidine HCl 2 mg PO Q8H PRN 02/26/18 03/23/18 Previous Rx's Medication Instructions Recorded Orphenadrine [Norflex] 100 mg PO Q12HR #20 tablet.er 11/23/17 Methocarbamol [Robaxin-750] 750 mg PO QID PRN #40 tablet 02/11/18 Sucralfate [Carafate] 1 gm PO TIDAC #90 udc 02/28/18 Metoclopramide [Reglan] 5 mg PO QIDAC tablet 03/05/18 Allergies Allergy/AdvReac Type Severity Reaction Status Date / Time Iodinated Contrast- Oral and Allergy Anaphylaxis Verified 03/23/18 16:13 IV Dye All systems ED: reviewed and negative except as stated. Gastrointestinal: Reports: hematochezia Genitourinary: Reports: hematuria Musculoskeletal: Reports: back pain Past Medical History - Past Medical History Medical history: Reports: aortic aneurysm, arthritis, COPD, coronary artery disease, GERD, hyperlipidemia, hypertension, kidney stones, myocardial infarction, TIA, other Surgical history: Reports: angioplasty/stent, appendectomy, herniorrhaphy, hip replacement, orthopedic, other, sinus surgery, other Psychiatric history: Reports: anxiety, depression - Social History Smoking Status: Never smoker Smokeless Tobacco Status: No Alcohol use: Reports: none Drug use: Reports: none Physical Exam - General Limitations: no limitations General appearance: alert, in no apparent distress - Head Head exam: atraumatic, normocephalic - Eye Eye exam: Present: normal appearance, EOMI - Neck Neck exam: Present: normal inspection, full ROM, trachea midline - Respiratory Respiratory exam: Present: normal lung sounds bilaterally. Absent: respiratory distress, wheezes - Cardiovascular Cardiovascular exam: Present: regular rate, normal rhythm, normal heart sounds, +S1, +S2 - Abdominal Exam Abdominal exam: Present: soft, Non-Tender, normal bowel sounds - Rectal Exam Wheel Roller present during exam: Yes Rectal exam: Present: heme (+) stool - Neurological Exam Neurological exam: Present: alert, oriented X3 - Psychiatric Psychiatric exam: Present: normal affect, normal mood - Skin Skin exam: Present: warm, dry, intact Course - Reevaluation(s) Reevaluation #1: Patient states that he has having worsening of his pain in his left flank. We will provide the patient with analgesics here in the emergency department. Patient states that he has also been feeling lightheaded and dizzy. Due to the patient feeling lightheaded and being anemic we will transfuse the patient with one unit of blood here in the emergency department. Patient will need to be admitted to the hospital for GI bleed and anemia. Time: 14:12 - Consultations Consultation #1: I called and spoke with Dr. Rios the on-call GI physician and he was made aware that the patient will be admitted to the hospitalist service for GI bleed with anemia. He asked that the patient remain nothing by mouth and they would see him tomorrow. Time: 14:19 Vital Signs Temperature 97.5 F L 03/25/18 11:34 Pulse Rate 86 03/25/18 11:34 Respiratory Rate 20 03/25/18 11:34 Blood Pressure 138/69 03/25/18 11:34 O2 Sat by Pulse Oximetry 96 03/25/18 11:34 Temperature 97.5 F L 03/25/18 11:43 Pulse Rate 73 03/25/18 14:32 Respiratory Rate 24 03/25/18 12:51 Blood Pressure 136/80 03/25/18 14:32 O2 Sat by Pulse Oximetry 98 03/25/18 14:32 Oxygen Delivery Oxygen Delivery Room Air Medical Decision Making - MDM Narrative Medical decision making narrative: Due to the patient presenting with flank pain with hematuria and blood in his stool we will obtain a CBC, BMP, coags, stool occult, urinalysis and a type and screen. We will also obtain a CT scan of the abdomen and pelvis to evaluate the patient's aortic aneurysm. Patient states that he has had a adverse reaction when receiving IVP dye. Patient states that he "coded" the last time that he had IVP dye. We will avoid giving any IV contrast at this time. The patient will be scanned without IV contrast at this time. Patient was found to have a hemoglobin of 6.9 on laboratory testing. Patient stool occult was positive. Patient does have chronic anemia however this appears to be lower than what his baseline is. Patient will be given a dose of Protonix here. Due to the patient sitting that he has been somewhat lightheaded and having a hemoglobin of 6.9 the patient will be transfused with 1 unit of packed red blood cells. The patient will also require admission to the hospital for further evaluation and management. Per radiology read there were no acute processes identified on the CT scan of the abdomen and pelvis but it did show a stable 4 cm abdominal aortic aneurysm. I called and spoke with the admitting hospitalist Dr. Glasgow and he has accepted the patient to their service. The patient be admitted to the hospital at this time for further evaluation and management. - Medical Records Medical records reviewed: Yes I reviewed the patient's medical records. - Lab Data Lab results reviewed: Yes I reviewed the patient's lab results. Result diagrams: 03/25/18 12:31 03/25/18 12:31 Lab Results 03/25/18 03/25/18 03/25/18 Range/Units 12:06 12:19 12:31 WBC 13.0 H (4.3-11.1) K/mcL RBC 2.60 L (4.19-5.50) M/mcL Hgb 6.9 L (12.9-16.9) g/dL Hct 21.8 L (37.5-50.1) % MCV 83.8 (83.0-100.0) fL MCH 26.5 L (28.0-33.3) pg MCHC 31.7 (31.6-35.5) g/dL RDW 17.3 H (11.5-14.5) % Plt Count 376 (140-400) K/mcL MPV 9.1 L (9.4-12.4) fL Immature Gran % 0.5 (0-4) % Seg Neutrophils % 72.7 % Lymphocytes % 20.5 % Monocytes % 5.8 % Eosinophils % 0.1 % Basophils % 0.4 % Neutrophils # 9.5 H (1.6-8.9) K/mcL Lymphocytes # 2.7 (0.6-4.6) K/mcL Monocytes # 0.8 (0.0-1.3) K/mcL Eosinophils # 0.0 (0.0-0.6) K/mcL Basophils # 0.1 (0.0-0.2) K/mcL PT (9.4-12.1) Seconds INR APTT (26.0-36.0) Seconds Sodium (136-145) mEq/L Potassium (3.5-5.1) mEq/L Chloride (98-107) mEq/L Carbon Dioxide (23-29) mEq/L BUN (8-23) mg/dL Creatinine (0.70-1.30) mg/dL Est GFR ( Amer) (> 60) Est GFR (Non-Af Amer) (> 60) BUN/Creatinine Ratio (6-26) Glucose (70-105) mg/dL Calculated Osmolality (280-300) Calcium (8.6-10.3) mg/dL Urine Color (Yellow) Urine Clarity (Clear) Urine pH (5.0-8.0) pH Units Ur Specific [place] (1.010-1.025) Urine Protein (Neg-Trace) mg/dL Urine Glucose (UA) (Normal) mg/dL Urine Ketones (Negative) mg/dL Urine Blood (Negative) Urine Nitrite (Negative) Urine Bilirubin (Negative) Urine Urobilinogen (Normal) mg/dL Ur Leukocyte Esterase (Negative) Urine Microscopic RBC (0-3) per hpf Urine Microscopic WBC (0-3) per hpf Ur Squamous Epith Cells (None-Few) per lpf Urine Bacteria (None-Few) per hpf Hyaline Casts (None-Few) per lpf Ur Culture Indicated? (NO) Stool Occult Blood Positive A (Negative) Blood Type A NEGATIVE Antibody Screen NEGATIVE Crossmatch See Detail 03/25/18 03/25/18 03/25/18 Range/Units 12:31 12:31 12:42 WBC (4.3-11.1) K/mcL RBC (4.19-5.50) M/mcL Hgb (12.9-16.9) g/dL Hct (37.5-50.1) % MCV (83.0-100.0) fL MCH (28.0-33.3) pg MCHC (31.6-35.5) g/dL RDW (11.5-14.5) % Plt Count (140-400) K/mcL MPV (9.4-12.4) fL Immature Gran % (0-4) % Seg Neutrophils % % Lymphocytes % % Monocytes % % Eosinophils % % Basophils % % Neutrophils # (1.6-8.9) K/mcL Lymphocytes # (0.6-4.6) K/mcL Monocytes # (0.0-1.3) K/mcL Eosinophils # (0.0-0.6) K/mcL Basophils # (0.0-0.2) K/mcL PT 12.4 H (9.4-12.1) Seconds INR 1.1 APTT 27.1 (26.0-36.0) Seconds Sodium 137 (136-145) mEq/L Potassium 4.0 (3.5-5.1) mEq/L Chloride 108 H (98-107) mEq/L Carbon Dioxide 20 L (23-29) mEq/L BUN 56 H (8-23) mg/dL Creatinine 1.07 (0.70-1.30) mg/dL Est GFR ( Amer) > 60 (> 60) Est GFR (Non-Af Amer) > 60 (> 60) BUN/Creatinine Ratio 52 H (6-26) Glucose 154 H (70-105) mg/dL Calculated Osmolality 303 H (280-300) Calcium 9.1 (8.6-10.3) mg/dL Urine Color Yellow (Yellow) Urine Clarity Clear (Clear) Urine pH 5.0 (5.0-8.0) pH Units Ur Specific [place] 1.028 H (1.010-1.025) Urine Protein Negative (Neg-Trace) mg/dL Urine Glucose (UA) Normal (Normal) mg/dL Urine Ketones Negative (Negative) mg/dL Urine Blood Negative (Negative) Urine Nitrite Negative (Negative) Urine Bilirubin Negative (Negative) Urine Urobilinogen Normal (Normal) mg/dL Ur Leukocyte Esterase Small H (Negative) Urine Microscopic RBC 0-3 (0-3) per hpf Urine Microscopic WBC 0-3 (0-3) per hpf Ur Squamous Epith Cells Many H (None-Few) per lpf Urine Bacteria None Seen (None-Few) per hpf Hyaline Casts Few (None-Few) per lpf Ur Culture Indicated? NO. A (NO) Stool Occult Blood (Negative) Blood Type Antibody Screen Crossmatch - Radiology Data Radiology results reviewed: Yes I reviewed the patient's radiology results. - EKG Data EKG #1 EKG attestation: Yes I reviewed and interpreted this EKG. EKG results narrative: EKG shows a sinus rhythm at a rate of 72 bpm, GA interval 171, curious duration of 1622, QTC of 431. There is evidence of a right bundle branch block that is present on EKG. No evidence of STEMI and EKG. This is compared to previous EKG on 03/08/18.
[2018-03-25] MEDS ORDERED: *HR* FentaNYL (PF) 100 MCG/2 ML VIAL IVP ONE (14:05)
[2018-03-25] MEDS ORDERED: Naloxone 0.4 MG/ML INJ IVP PRN (14:44)
[2018-03-25] MEDS ORDERED: Nitroglycerin 0.4 MG TAB.SUBL SL PRN (14:47)
--- NOTE | 2018-03-25 14:59 | Internal Med History&Physical ---
Date of Encounter: 03/25/18 Time of Encounter: 15:10 Internal Medicine - H&P: HPI Chief complaint: Left Abdominal pain Admitted From: Home Plans for Post Hospital Care: Home History of present illness: Mr. Almazan is a 77 year old male who came into the emergency department for left-sided abdominal pain and flank pain, and hematochezia. Patient stated that he had small black red bowel movement this morning and this is the second time within the last couple days. He also complaining of left flank and back pain that has been there for over a week. Patient is known to have abdominal aortic aneurysm. CT abdomen done in the emergency department and showed AAA of 4 cm without leaking without any other abnormality. Patient denied having chest pain, shortness of breath, nausea or vomiting, no dizziness. He also stated that he had some blood in his urine. Patient was found to have hemoglobin of 6.9 and he is being transfused in the emergency department. GI was contacted by the ED physician and recommended to keep the patient nothing by mouth and we will see him on consult Past Med Surg Social Fam HX - Past Medical History Medical history: aortic aneurysm, arthritis, COPD, coronary artery disease, GERD , hyperlipidemia, hypertension, kidney stones, myocardial infarction, TIA, other Additional medical history: CAD. HTN. HLD. GERD. Ureteral stone Psychiatric history: anxiety, depression - Past Surgical History Surgical History: angioplasty/stent, appendectomy, herniorrhaphy, hip replacement, orthopedic, other, sinus surgery, other Additional surgical history: esophagus and stomach sx - Social History Smoking Status: Never smoker Smokeless Tobacco Status: No Alcohol use: none Drug use: none - Family History Father Living Status: Hx Family Cardiac Disorders: No Hx Family Respiratory Disorders: Yes Hx Family Cancer: Yes (Hip cancer) Hx Family GI Disorders: No Hx Family Endocrine Disorder: No Hx Family Neuromuscular Disorders: No Hx Family Neurologic Disorders: No Hx Family HEENT Disorders: No Hx Family Autoimmune Disorders: No Internal Medicine - H&P: Meds Isosorbide MONOnitrate [Isosorbide Mononitrate] 30 mg PO DAILY 06/09/15 [History ] Simvastatin [Zocor] 10 mg PO DAILY 02/05/16 [History] ALPRAZolam [Xanax 0.25 MG Tablet] 0.25 mg PO TID 06/11/17 [History] Fluticasone/Salmeterol [Advair 250-50 Diskus] 1 each IH BID 06/11/17 [History] Montelukast [Singulair] 10 mg PO HS 06/11/17 [History] Nitroglycerin [Nitrostat] 0.4 mg SL Q5M PRN 06/11/17 [History] Omeprazole [PriLOSEC] 40 mg PO DAILY 06/11/17 [History] Orphenadrine [Norflex] 100 mg PO Q12HR #20 tablet.er 11/23/17 [Rx] Methocarbamol [Robaxin-750] 750 mg PO QID PRN #40 tablet 02/11/18 [Rx] Clopidogrel [Plavix] 75 mg PO DAILY 02/26/18 [History] Finasteride [Proscar] 5 mg PO DAILY 02/26/18 [History] Lisinopril [Zestril] 40 mg PO DAILY 02/26/18 [History] Metoclopramide HCl 5 mg PO QID 02/26/18 [History] Ranitidine HCl [Zantac] 300 mg PO BID 02/26/18 [History] Tamsulosin [Flomax] 0.4 mg PO DAILY 02/26/18 [History] Tizanidine HCl 2 mg PO Q8H PRN 02/26/18 [History] Sucralfate [Carafate] 1 gm PO TIDAC #90 udc 02/28/18 [Rx] 3 Allergy/AdvReac Type Severity Reaction Status Date / Time Iodinated Contrast- Oral and Allergy Anaphylaxis Verified 03/25/18 14:46 IV Dye All Systems PM: A 10-system review of systems was performed and is negative for pertinent findings except as documented above in the HPI. - Constitutional Vitals: Temp Pulse Resp BP Pulse Ox 97.5 F L 73 24 136/80 98 03/25/18 11:43 03/25/18 14:32 03/25/18 12:51 03/25/18 14:32 03/25/18 14:32 - Head Head exam: Present: atraumatic, normocephalic - Eye Eye exam: Present: PERRL, conjuntiva pink, sclera anicteric Pupils: Present: PERRL - Neck Neck exam general surgery: Present: supple, trachea midline. Absent: lymphadenopathy - Cardiovascular Cardiovascular exam: Present: RRR, +S1, +S2. Absent: diastolic murmur, gallop, rubs, systolic murmur - GI/Abdominal GI/Abdominal exam: Present: normal bowel sounds, soft, no peritoneal signs. Absent: distended, tenderness Additional comments: No abdominal tenderness. There is tenderness in the left lower back increases with pressure - Extremities Exam Extremities exam: Present: warm, radial pulses palpable and symmetrical. Absent : calf tenderness, cyanotic, pedal edema - Neurological Exam Neurological exam: Present: CN II-XII intact, oriented X3, no focal deficits. Absent: pronater drift, facial droop, speech deficit Internal Med - H&P Results - Labs CBC & Chem 7: 03/25/18 12:31 03/25/18 12:31 - VTE Reasons for not Prescribing Prophylaxis: Medical contraindication - Assessment and plan (1) GI bleed Current Visit: Yes Status: Acute Assessment and plan: We will transfuse patient 2 units of PRBCs Check hemoglobin and hematocrit posttransfusion and monitor every 6 hours We will start the patient on Protonix drip We will hold on Plavix (patient is taken it since 2001 when he had stent at that time) No anticoagulation GI already contacted from the emergency department and they are aware and will see the patient on consult Pain control Patient may need EGD and colonoscopy for further evaluation Qualifiers: Qualified Code(s): K92.2 - Gastrointestinal hemorrhage, unspecified (2) Acute blood loss anemia Current Visit: Yes Status: Acute Assessment and plan: Secondary to GI bleeding Monitor H&H Continue Protonix drip Plan as above (3) Abdominal aortic aneurysm Current Visit: Yes Status: Acute Assessment and plan: CT abdomen did not show any leaking of the aneurysm. It is measuring 4 cm Need close follow-up and vascular surgery evaluation possibly as an outpatient Qualifiers: Qualified Code(s): I71.4 - Abdominal aortic aneurysm, without rupture (4) CAD (coronary artery disease) Current Visit: No Status: Chronic Assessment and plan: Stable. No chest pain Continue current medications as ordered Hold Plavix for now due to GI bleed Qualifiers: Coronary Disease-Associated Artery/Lesion type: unspecified vessel or lesion type [place] vs. transplanted heart: [place] heart Associated angina: angina presence unspecified Qualified Code(s): I25.10 - Atherosclerotic heart disease of [place] coronary artery without angina pectoris (5) DVT prophylaxis Current Visit: Yes Status: Acute Assessment and plan: Will hold any heparin products or any anticoagulation for now due to GI bleed Will add SCDs - Time Spent With Patient Total time spent is greater than 50% in coordination of care (as documented) at patient's floor/unit and/or counseling patient:
[2018-03-25] MEDS: OXYCODONE Oral CONC 10 MG/0.5 ML ORAL.SYG SL PRN ×2 (15:58→21:09)
[2018-03-25] MEDS: Pantoprazole 40 MG in 0.9 % Sodium Chloride Mini Bag 100 ML IVC SCH ×2 (17:59→23:34)
[2018-03-25] MEDS: 0.9 % Sodium Chloride 1,000 ML IVC SCH (17:59)
[2018-03-25] MEDS: ALPRAZolam 0.25 MG TABLET PO SCH ×2 (18:01→20:32)
[2018-03-25] MEDS: Orphenadrine 100 MG TABLET.ER PO SCH (18:01)
[2018-03-25] MEDS: Methocarbamol 750 MG TABLET PO PRN (18:25)
[2018-03-25 22:57] LABS: Hematocrit 20.9 % (37.5-50.1); Hemoglobin 6.7 g/dL (12.9-16.9)
[2018-03-25] MEDS ORDERED: 0.9 % Sodium Chloride 250 ML ONE (23:17)
[2018-03-26] MEDS: OXYCODONE Oral CONC 10 MG/0.5 ML ORAL.SYG SL PRN ×4 (03:21→19:53)
[2018-03-26] MEDS: Methocarbamol 750 MG TABLET PO PRN (04:12)
[2018-03-26 05:26] LABS: Basophils # 0.1 K/mcL (0.0-0.2); Basophils % 1.3 %; Eosinophils # 0.3 K/mcL (0.0-0.6); Eosinophils % 2.7 %; Hematocrit 26.3 % (37.5-50.1); Immature Granulocytes % 0.4 % (0-4); Lymphocytes # 4.8 K/mcL (0.6-4.6); Lymphocytes % 45.8 %; Mean Corpuscular HGB Conc 31.9 g/dL (31.6-35.5); Mean Corpuscular Hemoglobin 27.3 pg (28.0-33.3); Mean Corpuscular Volume 85.4 fL (83.0-100.0); Mean Platelet Volume 9.7 fL (9.4-12.4); Monocytes # 0.7 K/mcL (0.0-1.3); Monocytes % 7.1 %; Neutrophils # 4.5 K/mcL (1.6-8.9); Platelet Count 295 K/mcL (140-400); Red Blood Count 3.08 M/mcL (4.19-5.50); Red Cell Distribution Width 16.6 % (11.5-14.5); Segmented Neutrophils % 42.7 %
[2018-03-26 05:33] LABS: BUN/Creatinine Ratio 56 (6-26); Blood Urea Nitrogen 45 mg/dL (8-23); Calcium 8.1 mg/dL (8.6-10.3); Carbon Dioxide 21 mEq/L (23-29); Chloride 111 mEq/L (98-107); Glucose 86 mg/dL (70-105); Magnesium 2.2 mg/dL (1.6-2.6); Osmolality,Calculated 299 (280-300); Potassium 3.9 mEq/L (3.5-5.1); Sodium 139 mEq/L (136-145); eGFR For African Americans > 60 (> 60); eGFR For Non-African Americans > 60 (> 60)
[2018-03-26] MEDS: Orphenadrine 100 MG TABLET.ER PO SCH ×2 (05:35→16:29)
[2018-03-26 05:38] LABS: Hemoglobin 8.4 g/dL (12.9-16.9)
[2018-03-26] MEDS: Pantoprazole 40 MG in 0.9 % Sodium Chloride Mini Bag 100 ML IVC SCH ×3 (05:47→16:28)
[2018-03-26] MEDS ORDERED: Isosorbide MONOnitrate (24 HR) 30 MG TAB.ER.24H PO SCH (09:00)
[2018-03-26] MEDS ORDERED: Finasteride 5 MG TABLET PO SCH (09:00)
[2018-03-26] MEDS: ALPRAZolam 0.25 MG TABLET PO SCH ×3 (09:17→20:11)
[2018-03-26] MEDS: tiZANidine 4 MG TABLET PO PRN ×2 (09:35→19:54)
--- NOTE | 2018-03-26 12:08 | Internal Med Progress Note ---
Date of Encounter: 03/26/18 Time of Encounter: 10:00 - Assessment and plan (1) GI bleed Current Visit: Yes Status: Acute Assessment and plan: Blood loss anemia secondary to GI bleed. Unclear site of bleeding but with an elevated BUN, and black stools I do favor upper GI source. He recently had a EGD which showed ulcerative esophagitis. Cannot exclude a small bowel bleed as well, and given the fact that he has had recent endoscopy, should he start bleeding again I would consider a Tagged blood cell scan. Given his bleeding has appeared to have stopped, a tagged red blood cell scan at this point would have limited if any utility. Continue protonix drip. Monitor Hb. Pt has 2 IV's. GI consulted. Qualifiers: GI bleed type/associated pathology: unspecified gastrointestinal hemorrhage type Qualified Code(s): K92.2 - Gastrointestinal hemorrhage, unspecified (2) Abdominal aortic aneurysm Current Visit: Yes Status: Acute Assessment and plan: Vascular surgery follow-up. CT scan performed this admission showed a stable 4 cm abdominal aortic aneurysm with no evidence of leak. Qualifiers: Qualified Code(s): I71.4 - Abdominal aortic aneurysm, without rupture (3) Back pain Current Visit: No Status: Acute Assessment and plan: Appears mskel. Resume home pain rx. Monitor. Qualifiers: Back pain location: low back pain Chronicity: chronic Back pain laterality: left Sciatica presence: without sciatica Qualified Code(s): M54.5 - Low back pain; G89.29 - Other chronic pain (4) DVT (deep venous thrombosis) Current Visit: No Status: Acute Assessment and plan: Not on anticoag due to recent bleed Qualifiers: DVT location: upper extremity Affected thrombotic vein of extremity: radial Chronicity: acute Laterality: right Qualified Code(s): I82.621 - Acute embolism and thrombosis of deep veins of right upper extremity (5) CAD (coronary artery disease) Current Visit: No Status: Chronic Assessment and plan: Stable, no angina. Keep Hb>8.0 Qualifiers: Coronary Disease-Associated Artery/Lesion type: unspecified vessel or lesion type [place] vs. transplanted heart: [place] heart Associated angina: angina presence unspecified Qualified Code(s): I25.10 - Atherosclerotic heart disease of [place] coronary artery without angina pectoris (6) Former smoker Current Visit: No Status: Chronic (7) Hypertension Current Visit: No Status: Chronic Assessment and plan: Stable Qualifiers: Hypertension type: essential hypertension Qualified Code(s): I10 - Essential (primary) hypertension - Time Spent With Patient Total time spent is greater than 50% in coordination of care (as documented) at patient's floor/unit and/or counseling patient: - Subjective Interval history: Mr. Almazan is a 77 year old male who came into the emergency department for left-sided abdominal pain and flank pain, and hematochezia. Patient stated that he had small black red bowel movement this morning and this is the second time within the last couple days. He also complaining of left flank and back pain that has been there for over a week. Patient is known to have abdominal aortic aneurysm. CT abdomen done in the emergency department and showed AAA of 4 cm without leaking without any other abnormality. Patient denied having chest pain, shortness of breath, nausea or vomiting, no dizziness. He also stated that he had some blood in his urine. Patient was found to have hemoglobin of 6.9 and he is being transfused in the emergency department. GI was contacted by the ED physician and recommended to keep the patient nothing by mouth and we will see him on consult 03/26: Review of records indicate patient was admitted March 02 to March 05 of this year. During that admission he was noted to have a DVT in his right upper extremity. Previous GI bleeding this month, he was not placed on anticoagulation. Patient was also admitted February 25 to February 28 for evaluation of GI bleed. During that time he had melena. He underwent colonoscopy which showed sigmoid diverticulosis and a sigmoid poylp was resected. An EGD showed ulcerative esophagitis. Patient denies any further bleeding since this admission. His last stool however was black but no asael blood. He did receive 2 units of packed red blood cells on admission, and his hemoglobin has now improved from a level of 6.7-8.4. Patient remains hemodynamically stable. He denies any chest pain or shortness of breath. No nausea, vomiting, diarrhea. No fevers or chills. - Constitutional Vitals: Temp Pulse Resp BP Pulse Ox 97.6 F 57 16 103/52 99 03/26/18 11:46 03/26/18 11:46 03/26/18 11:46 03/26/18 11:46 03/26/18 11:46 General appearance: Present: cachectic, A&O X 3, no acute distress - Head Head exam: Present: atraumatic, normocephalic - Eye Eye exam: Present: PERRL, conjuntiva pink, sclera anicteric Pupils: Present: PERRL - Neck Neck exam general surgery: Present: supple, trachea midline. Absent: lymphadenopathy - Respiratory Respiratory exam: Present: CTAB. Absent: accessory muscle use, rales, rhonchi, wheezes - Cardiovascular Cardiovascular exam: Present: RRR, +S1, +S2. Absent: diastolic murmur, gallop, rubs, systolic murmur - GI/Abdominal GI/Abdominal exam: Present: normal bowel sounds, soft, no peritoneal signs. Absent: distended, tenderness - Extremities Exam Extremities exam: Present: warm, radial pulses palpable and symmetrical. Absent : calf tenderness, cyanotic, pedal edema Additional comments: Distal pulses intact bilaterally - Back Exam Back exam: Present: tenderness Additional comments: TTP left low back - Neurological Exam Neurological exam: Present: CN II-XII intact, oriented X3, no focal deficits. Absent: pronater drift, facial droop, speech deficit - Skin Skin exam: Present: dry, intact Internal Medicine: Result - Labs CBC & Chem 7: 03/26/18 04:13 03/26/18 04:13 Labs: Short CBC 03/25/18 03/26/18 Range/Units 22:49 04:13 WBC 10.5 (4.3-11.1) K/mcL Hgb 6.7 L 8.4 L D (12.9-16.9) g/dL Hct 20.9 L 26.3 L (37.5-50.1) % Plt Count 295 (140-400) K/mcL Neutrophils # 4.5 (1.6-8.9) K/mcL BMP 03/26/18 04:13 Sodium 139 Potassium 3.9 Chloride 111 H Carbon Dioxide 21 L BUN 45 H Creatinine 0.81 Glucose 86 Calcium 8.1 L - ABG Interpretation ABG results: PT/INR, D-dimer PT 12.4 Seconds (9.4-12.1) H 03/25/18 12:31 - VTE Reasons for not Prescribing Prophylaxis: Medical contraindication Documentation of Mechanical Device: Intermittent pneumatic compression device Consult Discharge Plan - Plan Referrals: Syeda Dubose, DERRICK HELPER [Primary Care Provider] -
[2018-03-26 12:59] LABS: Hematocrit 22.2 % (37.5-50.1); Hemoglobin 6.9 g/dL (12.9-16.9); Mean Corpuscular HGB Conc 31.1 g/dL (31.6-35.5); Mean Corpuscular Hemoglobin 26.8 pg (28.0-33.3); Mean Corpuscular Volume 86.4 fL (83.0-100.0); Mean Platelet Volume 9.6 fL (9.4-12.4); Platelet Count 220 K/mcL (140-400); Red Blood Count 2.57 M/mcL (4.19-5.50); Red Cell Distribution Width 16.7 % (11.5-14.5)
[2018-03-26] MEDS: 0.9 % Sodium Chloride 1,000 ML IVC SCH (13:37)
[2018-03-26] MEDS ORDERED: *HR* Morphine 2 MG/ML SYRINGE IVP ONE (15:34)
[2018-03-26] MEDS ORDERED: MORPHINE SUL Oral CONC 10 MG/0.5 ML ORAL.SYG SL PRN (15:57)
[2018-03-26] MEDS ORDERED: 0.9 % Sodium Chloride 250 ML ONE (17:40)
--- NOTE | 2018-03-26 18:21 | Electrocardiograph Report ---
[place] [id number] Test Date: 2018-03-25 Pat Name: Alonzo Almazan Department: 103 Room: [id number] Gender: M Disk Sander: [facility] : 1940 Requested By: Rogerio Krueger Order Number: [id number] Reading MD: Josue Nolan Measurements Intervals [place] Rate: 72 P: 93 FL: 171 QRS: -52 QRSD: 162 T: 88 QT: 406 QTc: 431 Interpretive Statements SINUS RHYTHM WITH SINUS ARRHYTHMIA RIGHT BUNDLE BRANCH BLOCK LEFT ANTERIOR FASCICULAR BLOCK LEFT VENTRICULAR HYPERTROPHY AND ST-T CHANGE Electronically Signed On 03-26-2018 18:20:03 EDT by Josue Nolan
[2018-03-27 02:05] LABS: BUN/Creatinine Ratio 46 (6-26); Blood Urea Nitrogen 32 mg/dL (8-23); Calcium 7.5 mg/dL (8.6-10.3); Carbon Dioxide 19 mEq/L (23-29); Chloride 114 mEq/L (98-107); Glucose 63 mg/dL (70-105); Osmolality,Calculated 291 (280-300); Potassium 4.4 mEq/L (3.5-5.1); Sodium 138 mEq/L (136-145); eGFR For African Americans > 60 (> 60); eGFR For Non-African Americans > 60 (> 60)
[2018-03-27 02:26] LABS: Basophils # 0.1 K/mcL (0.0-0.2); Basophils % 0.9 %; Eosinophils # 0.3 K/mcL (0.0-0.6); Immature Granulocytes % 0.3 % (0-4); Lymphocytes # 2.5 K/mcL (0.6-4.6); Lymphocytes % 33.7 %; Mean Corpuscular HGB Conc 32.3 g/dL (31.6-35.5); Mean Corpuscular Hemoglobin 27.7 pg (28.0-33.3); Mean Corpuscular Volume 85.9 fL (83.0-100.0); Mean Platelet Volume 9.2 fL (9.4-12.4); Monocytes # 0.7 K/mcL (0.0-1.3); Monocytes % 9.2 %; Neutrophils # 3.8 K/mcL (1.6-8.9); Nucleated Red Blood Cells 0.3 /100 WBC (0); Platelet Count 208 K/mcL (140-400); Red Blood Count 3.61 M/mcL (4.19-5.50); Red Cell Distribution Width 15.9 % (11.5-14.5); Segmented Neutrophils % 51.9 %
[2018-03-27] MEDS: Pantoprazole 40 MG in 0.9 % Sodium Chloride Mini Bag 100 ML IVC SCH ×6 (04:47→20:04)
[2018-03-27] MEDS ORDERED: *HR* Dextrose 25% in Water (Syg) 10 ML SYRINGE IVP ONE (04:48)
[2018-03-27] MEDS: Orphenadrine 100 MG TABLET.ER PO SCH (05:13)
[2018-03-27] MEDS: OXYCODONE Oral CONC 10 MG/0.5 ML ORAL.SYG SL PRN ×3 (05:14→20:03)
[2018-03-27 08:00] LABS: Basophils # 0.1 K/mcL (0.0-0.2); Basophils % 0.9 %; Eosinophils # 0.2 K/mcL (0.0-0.6); Eosinophils % 2.6 %; Hematocrit 28.1 % (37.5-50.1); Hemoglobin 9.3 g/dL (12.9-16.9); Immature Granulocytes % 0.4 % (0-4); Lymphocytes # 1.6 K/mcL (0.6-4.6); Lymphocytes % 20.6 %; Mean Corpuscular HGB Conc 33.1 g/dL (31.6-35.5); Mean Corpuscular Hemoglobin 27.5 pg (28.0-33.3); Mean Corpuscular Volume 83.1 fL (83.0-100.0); Mean Platelet Volume 9.4 fL (9.4-12.4); Monocytes # 0.6 K/mcL (0.0-1.3); Neutrophils # 5.2 K/mcL (1.6-8.9); Platelet Count 215 K/mcL (140-400); Red Blood Count 3.38 M/mcL (4.19-5.50); Red Cell Distribution Width 15.9 % (11.5-14.5); Segmented Neutrophils % 67.5 %
[2018-03-27] MEDS ORDERED: *HR* Dextrose 50 % in Water (Syg) 50 ML SYRINGE IVP PRN (08:11)
--- NOTE | 2018-03-27 08:13 | Internal Med Progress Note ---
<Misael Garcia - Last Filed: 03/27/18 18:17> Date of Encounter: 03/27/18 Time of Encounter: 14:35 - Assessment and plan (1) GI bleed Current Visit: Yes Status: Acute Assessment and plan: Blood loss anemia secondary to GI bleed has improved after transfusion of 4 units packed red blood cells. Continue Protonix drip. Continue to monitor hemoglobin. Await GI recommendations. (2) Acute blood loss anemia Current Visit: Yes Status: Resolved Assessment and plan: Secondary to GI bleed. H&H has improved after 4 units of packed red blood cells. Continue to monitor H&H. (3) Back pain Current Visit: Yes Status: Chronic Assessment and plan: Continue home pain meds. (4) Abdominal aortic aneurysm Current Visit: Yes Status: Acute Assessment and plan: Follow-up with vascular surgery. (5) Hypertension Current Visit: Yes Status: Chronic Assessment and plan: Home BP meds held on 03/27 due to NPO status. Added Hydralazine 5mg q6h prn. (6) CAD (coronary artery disease) Current Visit: No Status: Chronic Assessment and plan: Stable, no angina. Keep Hb>8.0 (7) DVT (deep venous thrombosis) Current Visit: No Status: Acute Assessment and plan: Not on anticoag due to recent bleed - Time Spent With Patient Total time spent is greater than 50% in coordination of care (as documented) at patient's floor/unit and/or counseling patient: - Subjective Interval history: Mr. Almazan is a 77-year-old male who originally presented with abdominal pain , flank pain and hematochezia. Patient was found to have AAA 4 cm, and hemoglobin of 6.9. Patient was transfused a total of 4 units of blood. 03/27: During this encounter the patient was complaining of the same left back and flank pain that started 2 weeks ago. Pt stated the pain is currently an 8/10 , but goes away completely with medication. Describes the pain as dull pressure , denies any radiation of the pain. Admits to some intermittent nausea. Denies vomiting. Pt states he has not had a bowel movement since monday. No difficulty urinating. Denies any chest pain or shortness of breath. - Constitutional Vitals: Temp Pulse Resp BP Pulse Ox 97.7 F 51 16 151/73 96 03/27/18 07:08 03/27/18 07:08 03/27/18 07:08 03/27/18 07:08 03/27/18 07:08 General appearance: Present: cachectic, A&O X 3, no acute distress Exam: Head: Atraumatic, normocephalic Eyes: PERRL, EOMI, conjunctiva pink, sclera anicteric Respiratory: Clear to auscultation bilaterally. No wheezes, rales, or rhonchi noted. Heart: RRR, S1 and S2 present. No murmur, gallop, clicks or rubs noted. GI: Abdomen soft, nontender, nondistended, with normoactive bowel sounds. Extremities: Warm, pulses palpable and symmetrical. No cyanosis or edema noted. Back: TTP on the left near the level of L1-L2. Neuro: Alert and oriented 3, no focal deficits, no speech difficulty. Skin: Warm, dry, intact. Internal Medicine: Result - Labs CBC & Chem 7: 03/27/18 07:47 03/27/18 01:33 Labs: Short CBC 03/26/18 03/27/18 03/27/18 Range/Units 12:28 01:52 07:47 WBC 6.3 7.4 7.7 (4.3-11.1) K/mcL Hgb 6.9 L D 10.0 L D 9.3 L (12.9-16.9) g/dL Hct 22.2 L 31.0 L 28.1 L (37.5-50.1) % Plt Count 220 208 215 (140-400) K/mcL Neutrophils # 3.8 5.2 (1.6-8.9) K/mcL BMP 03/27/18 01:33 Sodium 138 Potassium 4.4 Chloride 114 H Carbon Dioxide 19 L BUN 32 H Creatinine 0.69 L Glucose 63 L Calcium 7.5 L - ABG Interpretation ABG results: PT/INR, D-dimer PT 12.4 Seconds (9.4-12.1) H 03/25/18 12:31 - VTE Reasons for not Prescribing Prophylaxis: Medical contraindication Documentation of Mechanical Device: Intermittent pneumatic compression device Consult Discharge Plan - Plan Referrals: Syeda Dubose, CHAIN DYER [Primary Care Provider] - <Corona Thao - Last Filed: 03/27/18 18:35> Date of Encounter: 03/27/18 - Assessment and plan (1) GI bleed Current Visit: Yes Status: Acute Qualifiers: GI bleed type/associated pathology: melena Qualified Code(s): K92.1 - Melena (2) Anemia Current Visit: Yes Status: Acute Assessment and plan: Monitor H/H Qualifiers: Anemia type: other cause Other causes of anemia: acute posthemorrhagic Qualified Code(s): D62 - Acute posthemorrhagic anemia (3) Abdominal aortic aneurysm Current Visit: Yes Status: Acute Qualifiers: Presence of rupture: without rupture Qualified Code(s): I71.4 - Abdominal aortic aneurysm, without rupture (4) Hypertension Current Visit: Yes Status: Chronic Qualifiers: Hypertension type: essential hypertension Qualified Code(s): I10 - Essential (primary) hypertension (5) CAD (coronary artery disease) Current Visit: No Status: Chronic Qualifiers: Coronary Disease-Associated Artery/Lesion type: [place] artery [place] vs. transplanted heart: [place] heart Associated angina: angina presence unspecified Qualified Code(s): I25.10 - Atherosclerotic heart disease of [place] coronary artery without angina pectoris (6) Esophageal ulcer without bleeding Current Visit: Yes Status: Chronic - Time Spent With Patient Total time spent is greater than 50% in coordination of care (as documented) at patient's floor/unit and/or counseling patient: - Constitutional Vitals: Temp Pulse Resp BP Pulse Ox 98.3 F 71 16 189/92 94 03/27/18 15:48 03/27/18 15:48 03/27/18 15:48 03/27/18 15:48 03/27/18 15:48 Internal Medicine: Result - Labs CBC & Chem 7: 03/27/18 07:47 03/27/18 01:33 Labs: Short CBC 03/27/18 03/27/18 Range/Units 01:52 07:47 WBC 7.4 7.7 (4.3-11.1) K/mcL Hgb 10.0 L D 9.3 L (12.9-16.9) g/dL Hct 31.0 L 28.1 L (37.5-50.1) % Plt Count 208 215 (140-400) K/mcL Neutrophils # 3.8 5.2 (1.6-8.9) K/mcL BMP 03/27/18 01:33 Sodium 138 Potassium 4.4 Chloride 114 H Carbon Dioxide 19 L BUN 32 H Creatinine 0.69 L Glucose 63 L Calcium 7.5 L - ABG Interpretation ABG results: PT/INR, D-dimer PT 12.4 Seconds (9.4-12.1) H 03/25/18 12:31 - Attending Attestation I examined this patient and my medical decision-making was reviewed with the Resident Physician on 03/27/18. I agree with the documented findings, disposition and treatment plan as described except to the extent set forth below. Mr Almazan is currently admitted for acute GI bleed/melena. His H/H has improved with transfusion. He is hungry. He remains moderate to high risk due to potential for worsening clinical status. Mr Almazan is feeling OK and is hungry. No fever or chills. H/H has improved with transfusion. No further overt bleeding noted. GI to see. Exam Alert Comfortable Mucus membranes dry Heart reg No wheeze abd soft - some mild discomfort LLQ area with no peritoneal signs. I/P 1. Melena 2. Anemia Further diagnoses and plan as above
[2018-03-27] MEDS ORDERED: D5% in 0.45% NACL 1,000 ML IVC SCH (08:15)
[2018-03-27] MEDS ORDERED: Nitroglycerin 0.4 MG TAB.SUBL SL PRN (08:20)
[2018-03-27] MEDS ORDERED: Naloxone 0.4 MG/ML INJ IVP PRN (08:20)
[2018-03-27] MEDS ORDERED: Methocarbamol 750 MG TABLET PO PRN (08:20)
[2018-03-27] MEDS ORDERED: tiZANidine 4 MG TABLET PO PRN (08:20)
[2018-03-27] MEDS ORDERED: ALPRAZolam 0.25 MG TABLET PO SCH (09:00)
[2018-03-27] MEDS: D5% in 0.45% NACL 1,000 ML IVC SCH (09:24)
[2018-03-27] MEDS ORDERED: OXYCODONE Oral CONC 10 MG/0.5 ML ORAL.SYG SL ONE (09:47)
--- NOTE | 2018-03-27 11:42 | Gastroenterology Consult Note ---
Date of Encounter: 03/27/18 Time of Encounter: 11:10 - Assessment and plan (1) GI bleed Current Visit: Yes Status: Acute Assessment and plan: - Patient with complaint of hematochezia and melena x 3 weeks. - Recent EGD and colonoscopy on 02/26 and 02/27/18 showing severe ulceration with grade D esophagitis and hiatal hernia. COlonscopy shows tubular adenoma, diverticulosis, no evidence of bleed. - Previously discharged to SNF on carafate, PPI - H/H stable at 10.0/31.0 after receiving 4 units PRBCs on admission for presenting Hgb of 6.9 - Hemodynamically stable. - CT scan shows nephrolithiasis, diverticulosis with inflammation, stable AAA. Plan - Will monitor and possible EGD/colonoscopy if continues to show signs of bleed . - NPO at midnight with golytley and docusate if plan for colonoscopy monday night. - Transfuse as necessary. - Continue carafate, PPI - Likely source of upper GI, possible lower component but less likely. Qualifiers: GI bleed type/associated pathology: melena Qualified Code(s): K92.1 - Melena (2) Abdominal aortic aneurysm Current Visit: Yes Status: Acute Assessment and plan: - Stable on CT scan. Qualifiers: Presence of rupture: without rupture Qualified Code(s): I71.4 - Abdominal aortic aneurysm, without rupture - Time Spent With Patient Total time spent is greater than 50% in coordination of care (as documented) at patient's floor/unit and/or counseling patient: GI History of Present Illness - Data of Consult Patient: known to practice within the last 3 years Consult date: 03/27/18 Requesting Physician: Corona Thao DO - Consult Narrative Reason for consult: Gi bleed History of present illness: Mr. Almazan is a 77 year old male with past medical history of aortic aneurysm , arthritis, COPD, CAD, GERD, hyperlipidemia, hypertension, kidney stones, TIA presents to emergency room with complaint of left-sided abdominal and flank pain as well as hematochezia. His main complaint at this time is this left sided back pain which as been present for 3 weeks as well. Patient states that he has a difficulty remembering specific events but believes he has been having both dark stools as well as bright red blood per rectum for the past 3 weeks. Patient states that he does have associated symptoms of lightheadedness, dizziness but denies any symptoms of abdominal pain, nausea, vomiting, chest pain, shortness of breath. He takes aspirin 81 mg/plavix daily as well as Tylenol/norco for pain control at home. Denies any other blood thinners. He notably did have an EGD/colonoscopy while admitted on previous admission on . Colonoscopy was significant for one 5 mm nonbleeding polyp in the sigmoid colon, diverticulosis in the sigmoid colon. EGD was significant for [place] grade D esophagitis, medium-size hiatal hernia. Upon presentation to the emergency room, patient's H/H was notably 6.7/20.9. He has since received 4 units of packed red blood cells with improvement of H/H of 9.3/28.1. CT scan emergency department showed no acute process, stable 4 cm AAA, bilateral nephrolithiasis, left adrenal adenoma, cholelithiasis, diverticulosis. He was started on Protonix drip. Colonoscopy: 02/27/18 showing diverticulosis, 5 mm tubular adenoma EGD: 02/26/18 showing grade D esophagitis, hiatal hernia. Past Med Surg Social Fam HX - Past Medical History Medical history: aortic aneurysm, arthritis, COPD, coronary artery disease, GERD , hyperlipidemia, hypertension, kidney stones, myocardial infarction, TIA, other Additional medical history: CAD. HTN. HLD. GERD. Ureteral stone Psychiatric history: anxiety, depression - Past Surgical History Surgical History: angioplasty/stent, appendectomy, herniorrhaphy, hip replacement, orthopedic, other, sinus surgery, other Additional surgical history: esophagus and stomach sx - Social History Smoking Status: Former smoker Smokeless Tobacco Status: No Alcohol use: none Drug use: none - Family History Father Living Status: Hx Family Cardiac Disorders: No Hx Family Respiratory Disorders: Yes Hx Family Cancer: Yes Hx Family GI Disorders: No Hx Family Endocrine Disorder: No Hx Family Neuromuscular Disorders: No Hx Family Neurologic Disorders: No Hx Family HEENT Disorders: No Hx Family Autoimmune Disorders: No - Gastrointestinal Gastrointestinal: Present: hematochezia. Absent: abdominal pain, bloating, change in bowel habits, constipation, diarrhea, melena, nausea, vomiting - Constitutional Constitutional: no fever(s) - Cardiovascular Cardiovascular ROS: Absent: chest pain - Respiratory Respiratory IM: Absent: dyspnea - Genitourinary Genitourinary: Present: change in color, other (flank pain) - Neurological ROS Neurological GI: Present: dizziness. Absent: frequent falls, weakness - Musculoskeletal Musculoskeletal ROS GI: Present: back pain - Integumentary Integumentary GI: Absent: rash - Constitutional Vitals: Temp Pulse Resp BP Pulse Ox 97.4 F L 62 16 185/81 100 03/27/18 11:05 03/27/18 11:05 03/27/18 11:05 03/27/18 11:05 03/27/18 11:05 Exam: Gen.: Vitals noted. No acute distress. AAOx3. HEENT: PERRL/EOMI, oropharynx clear, Normocephalic, atraumatic, MMM Cardiac: RRR, no murmur, +S1/S2 Pulmonary: Decreased breath sounds, mild wheeze. equal chest expansion Abdomen: soft, tender to palpation in epigastric region, BS noted, no guarding, no rebound. MSK: ROM intact, no joint swelling noted. reproducible back pain on left. Extremities: no BLE edema, nontender calf, no cyanosis or clubbing Neuro: A&Ox3, moves all extremities, no focal deficits Psych: Appropriate mood and behavior Results - Labs CBC & Chem 7: 03/27/18 07:47 03/27/18 01:33 Labs: Last Result Calcium 7.5 mg/dL (8.6-10.3) L 03/27/18 01:33 Stool Occult Blood Positive (Negative) A 03/25/18 12:19 Entire Visit Hgb 9.3 g/dL (12.9-16.9) L 03/27/18 07:47 Hct 28.1 % (37.5-50.1) L 03/27/18 07:47 PT 12.4 Seconds (9.4-12.1) H 03/25/18 12:31 - ABG ABG results: PT/INR, D-dimer PT 12.4 Seconds (9.4-12.1) H 03/25/18 12:31 Consult Discharge Plan - Plan Referrals: Syeda Dubose, [employer]PERATOR [Primary Care Provider] -
[2018-03-27] MEDS ORDERED: ALPRAZolam 0.25 MG TABLET PO PRN (14:21)
[2018-03-27] MEDS ORDERED: OXYCODONE Oral CONC 10 MG/0.5 ML ORAL.SYG SL SCH (16:00)
[2018-03-27] MEDS: Isosorbide MONOnitrate (24 HR) 30 MG TAB.ER.24H PO SCH (16:48)
[2018-03-27] MEDS: Finasteride 5 MG TABLET PO SCH (16:49)
[2018-03-27] MEDS ORDERED: Orphenadrine 100 MG TABLET.ER PO SCH (18:00)
[2018-03-27] MEDS ORDERED: SODIUM CHLORIDE/NAHCO3/KCL/PEG 4,000 ML SOLN.RECON PO ONE (18:52)
[2018-03-27] MEDS: 0.9 % Sodium Chloride 1,000 ML IVC SCH (19:59)
[2018-03-27] MEDS: Sennosides 8.6 MG TABLET PO SCH (20:14)
[2018-03-28] MEDS: Pantoprazole 40 MG in 0.9 % Sodium Chloride Mini Bag 100 ML IVC SCH ×5 (00:36→22:36)
[2018-03-28] MEDS: OXYCODONE Oral CONC 10 MG/0.5 ML ORAL.SYG SL PRN ×5 (00:39→20:11)
[2018-03-28 04:01] LABS: Basophils # 0.1 K/mcL (0.0-0.2); Basophils % 0.7 %; Eosinophils # 0.1 K/mcL (0.0-0.6); Hematocrit 30.2 % (37.5-50.1); Hemoglobin 9.9 g/dL (12.9-16.9); Immature Granulocytes % 0.3 % (0-4); Lymphocytes # 1.7 K/mcL (0.6-4.6); Lymphocytes % 24.8 %; Mean Corpuscular HGB Conc 32.8 g/dL (31.6-35.5); Mean Corpuscular Hemoglobin 27.3 pg (28.0-33.3); Mean Corpuscular Volume 83.2 fL (83.0-100.0); Mean Platelet Volume 9.4 fL (9.4-12.4); Monocytes # 0.6 K/mcL (0.0-1.3); Monocytes % 8.8 %; Neutrophils # 4.3 K/mcL (1.6-8.9); Platelet Count 254 K/mcL (140-400); Red Blood Count 3.63 M/mcL (4.19-5.50); Red Cell Distribution Width 16.1 % (11.5-14.5); Segmented Neutrophils % 63.4 %
[2018-03-28] MEDS: D5% in 0.45% NACL 1,000 ML IVC SCH (05:27)
--- NOTE | 2018-03-28 08:02 | Internal Med Progress Note ---
<MasterCorona Paulette - Last Filed: 03/28/18 16:54> Date of Encounter: 03/28/18 - Assessment and plan (1) GI bleed Current Visit: Yes Status: Acute Qualifiers: GI bleed type/associated pathology: melena Qualified Code(s): K92.1 - Melena (2) Acute blood loss anemia Current Visit: Yes Status: Resolved (3) Hypertension Current Visit: Yes Status: Chronic Qualifiers: Hypertension type: essential hypertension Qualified Code(s): I10 - Essential (primary) hypertension (4) Abdominal aortic aneurysm Current Visit: Yes Status: Acute Qualifiers: Presence of rupture: without rupture Qualified Code(s): I71.4 - Abdominal aortic aneurysm, without rupture - Time Spent With Patient Total time spent is greater than 50% in coordination of care (as documented) at patient's floor/unit and/or counseling patient: - Constitutional Vitals: Temp Pulse Resp BP Pulse Ox 97.8 F 78 14 143/75 98 03/28/18 16:07 03/28/18 16:07 03/28/18 16:07 03/28/18 16:07 03/28/18 16:07 Internal Medicine: Result - Labs CBC & Chem 7: 03/28/18 03:45 03/27/18 01:33 Labs: Short CBC 03/28/18 Range/Units 03:45 WBC 6.9 (4.3-11.1) K/mcL Hgb 9.9 L (12.9-16.9) g/dL Hct 30.2 L (37.5-50.1) % Plt Count 254 (140-400) K/mcL Neutrophils # 4.3 (1.6-8.9) K/mcL - ABG Interpretation ABG results: PT/INR, D-dimer PT 12.4 Seconds (9.4-12.1) H 03/25/18 12:31 Consult Discharge Plan - Plan Referrals: Syeda Dubose, [employer]ATION WORKER [Primary Care Provider] - - Attending Attestation I examined this patient and my medical decision-making was reviewed with the Resident Physician on 03/28/18. I agree with the documented findings, disposition and treatment plan as described except to the extent set forth below. Mr Almazan is currently admitted for presumed acute GI bleed and anemia. He is to have endoscopy tomorrow. He remains moderate to high risk due to potential for worsening clinical status. Mr Almazan is feeling OK at this time. He is to take prep tonight for endoscopy tomorrow. No CP or SOB. No abd pain. Wants pain pill at this time. Exam Alert Comfortable Mucus membranes dry Heart reg No wheeze Abd soft I/P 1. Acute GI bleed -H/H stable thus far. To have endoscopy tomorrow. 2. Anemia due to blood loss. Further diagnoses and plan as above. <Misael Garcia - Last Filed: 03/28/18 17:31> Date of Encounter: 03/28/18 Time of Encounter: 09:20 - Assessment and plan (1) Hypertension Current Visit: Yes Status: Chronic Assessment and plan: Hypertension refractory to hydralazine overnight. Added lisinopril 40 mg, which is a home medication. Qualifiers: Hypertension type: essential hypertension Qualified Code(s): I10 - Essential (primary) hypertension (2) GI bleed Current Visit: Yes Status: Acute Assessment and plan: No evidence of acute bleeding at this time. Per GI recommendations, possible EGD and colonoscopy tomorrow if evidence of bleeding is noted. Colonoscopy planned for this evening. await results Qualifiers: GI bleed type/associated pathology: melena Qualified Code(s): K92.1 - Melena (3) Acute blood loss anemia Current Visit: Yes Status: Resolved Assessment and plan: Secondary to GI bleed. H&H has improved and stabilized after 2 units of pRBCs on 03/25, followed by 2 units pRBCs on 03/26. Continue to monitor H&H. (4) Abdominal aortic aneurysm Current Visit: Yes Status: Acute Assessment and plan: Follow-up with vascular surgery. Stable and nonruptured 4 cm. Qualifiers: Presence of rupture: without rupture Qualified Code(s): I71.4 - Abdominal aortic aneurysm, without rupture - Time Spent With Patient Total time spent is greater than 50% in coordination of care (as documented) at patient's floor/unit and/or counseling patient: - Subjective Interval history: Mr. Almazan is a 77-year-old male who originally presented with abdominal pain , flank pain and hematochezia. Patient was found to have AAA 4 cm, and hemoglobin of 6.9. Patient was transfused a total of 4 units of blood. 03/27: During this encounter the patient was complaining of the same left back and flank pain that started 2 weeks ago. Pt stated the pain is currently an 8/10 , but goes away completely with medication. Describes the pain as dull pressure , denies any radiation of the pain. Admits to some intermittent nausea. Denies vomiting. Pt states he has not had a bowel movement since monday. No difficulty urinating. Denies any chest pain or shortness of breath. 03/28: No acute events overnight. During this encounter the patient was resting comfortably in bed with no new complaints. Patient states he is still experiencing back pain, however mentioned he just received his pain medicine shortly before this encounter and now rates his pain as a 6 out of 10. Patient admits to a short episode of nausea this morning upon awakening. Denies any vomiting. Patient denies any bowel movements, but admits to some flatus. No difficulty urinating. Denies any chest pain, shortness of breath, or abdominal pain. - Constitutional Vitals: Temp Pulse Resp BP Pulse Ox 97.8 F 73 16 145/73 96 03/28/18 07:22 03/28/18 07:22 03/28/18 07:22 03/28/18 07:22 03/28/18 07:22 General appearance: Present: cachectic, A&O X 3, no acute distress Exam: Head: Atraumatic, normocephalic Eyes: PERRL, EOMI, conjunctiva pink, sclera anicteric Respiratory: Clear to auscultation bilaterally. No wheezes, rales, or rhonchi noted. Heart: RRR, S1 and S2 present. No murmur, gallop, clicks or rubs noted. GI: Abdomen soft, nontender, nondistended, with normoactive bowel sounds. Extremities: Warm, pulses palpable and symmetrical. No cyanosis or edema noted. Back: TTP on the left near the level of L1-L2. Neuro: Alert and oriented 3, no focal deficits, no speech difficulty. Skin: Warm, dry, intact. Internal Medicine: Result - Labs CBC & Chem 7: 03/28/18 03:45 03/27/18 01:33 Labs: Short CBC 03/27/18 03/28/18 Range/Units 07:47 03:45 WBC 7.7 6.9 (4.3-11.1) K/mcL Hgb 9.3 L 9.9 L (12.9-16.9) g/dL Hct 28.1 L 30.2 L (37.5-50.1) % Plt Count 215 254 (140-400) K/mcL Neutrophils # 5.2 4.3 (1.6-8.9) K/mcL - ABG Interpretation ABG results: PT/INR, D-dimer PT 12.4 Seconds (9.4-12.1) H 03/25/18 12:31 - VTE Reasons for not Prescribing Prophylaxis: Medical contraindication Documentation of Mechanical Device: Intermittent pneumatic compression device
[2018-03-28] MEDS: Gabapentin 100 MG CAPSULE PO SCH (09:47)
[2018-03-28] MEDS: Finasteride 5 MG TABLET PO SCH (09:47)
[2018-03-28] MEDS: Isosorbide MONOnitrate (24 HR) 30 MG TAB.ER.24H PO SCH (09:47)
[2018-03-28] MEDS: Sennosides 8.6 MG TABLET PO SCH ×2 (09:48→20:10)
[2018-03-28] MEDS: Lisinopril 20 MG TABLET PO SCH (09:52)
[2018-03-28] MEDS ORDERED: SODIUM CHLORIDE/NAHCO3/KCL/PEG 4,000 ML SOLN.RECON PO ONE (12:00)
[2018-03-29] MEDS: D5% in 0.45% NACL 1,000 ML IVC SCH (03:11)
[2018-03-29] MEDS: Pantoprazole 40 MG in 0.9 % Sodium Chloride Mini Bag 100 ML IVC SCH ×4 (03:13→22:30)
[2018-03-29] MEDS: OXYCODONE Oral CONC 10 MG/0.5 ML ORAL.SYG SL PRN ×4 (04:45→21:02)
[2018-03-29 05:19] LABS: Basophils % 0.7 %; Eosinophils # 0.2 K/mcL (0.0-0.6); Eosinophils % 3.7 %; Hematocrit 27.4 % (37.5-50.1); Immature Granulocytes % 0.3 % (0-4); Lymphocytes # 1.7 K/mcL (0.6-4.6); Lymphocytes % 29.6 %; Mean Corpuscular HGB Conc 32.8 g/dL (31.6-35.5); Mean Corpuscular Hemoglobin 27.6 pg (28.0-33.3); Mean Platelet Volume 9.7 fL (9.4-12.4); Monocytes # 0.7 K/mcL (0.0-1.3); Monocytes % 11.6 %; Neutrophils # 3.2 K/mcL (1.6-8.9); Platelet Count 245 K/mcL (140-400); Red Blood Count 3.26 M/mcL (4.19-5.50); Red Cell Distribution Width 16.2 % (11.5-14.5); Segmented Neutrophils % 54.1 %
[2018-03-29 05:41] LABS: BUN/Creatinine Ratio 16 (6-26); Blood Urea Nitrogen 12 mg/dL (8-23); Calcium 7.4 mg/dL (8.6-10.3); Carbon Dioxide 19 mEq/L (23-29); Chloride 110 mEq/L (98-107); Glucose 86 mg/dL (70-105); Osmolality,Calculated 281 (280-300); Sodium 136 mEq/L (136-145); eGFR For African Americans > 60 (> 60); eGFR For Non-African Americans > 60 (> 60)
--- NOTE | 2018-03-29 07:58 | Internal Med Progress Note ---
<Misael Garcia - Last Filed: 03/29/18 17:31> Date of Encounter: 03/29/18 Time of Encounter: 07:57 - Assessment and plan (1) GI bleed Current Visit: Yes Status: Acute Assessment and plan: Colonoscopy and EGD planned for this afternoon. Await results. Can advance diet after above procedures Qualifiers: GI bleed type/associated pathology: melena Qualified Code(s): K92.1 - Melena (2) Hypertension Current Visit: Yes Status: Chronic Assessment and plan: Improved from yesterday. Systolics trending in 140-150s Continue Lisinopril 40mg and hydralazine prn Continue to monitor Qualifiers: Hypertension type: essential hypertension Qualified Code(s): I10 - Essential (primary) hypertension (3) Fall Current Visit: No Status: Acute Assessment and plan: Pt reports falling multiple times at home, and is concerned about falling more when he is eventually discharged. PT/OT eval Qualifiers: Encounter type: subsequent encounter Qualified Code(s): W19.XXXD - Unspecified fall, subsequent encounter (4) Acute blood loss anemia Current Visit: Yes Status: Resolved Assessment and plan: Secondary to GI bleed. H&H has improved and stabilized after 2 units of pRBCs on 03/25, followed by 2 units pRBCs on 03/26. Continue to monitor H&H. (5) Abdominal aortic aneurysm Current Visit: Yes Status: Acute Assessment and plan: Follow-up with vascular surgery. Stable and nonruptured 4 cm. Qualifiers: Presence of rupture: without rupture Qualified Code(s): I71.4 - Abdominal aortic aneurysm, without rupture - Time Spent With Patient Total time spent is greater than 50% in coordination of care (as documented) at patient's floor/unit and/or counseling patient: - Subjective Interval history: Mr. Almazan is a 77-year-old male who originally presented with abdominal pain , flank pain and hematochezia. Patient was found to have AAA 4 cm, and hemoglobin of 6.9. Patient was transfused a total of 4 units of blood. 03/27: During this encounter the patient was complaining of the same left back and flank pain that started 2 weeks ago. Pt stated the pain is currently an 8/10 , but goes away completely with medication. Describes the pain as dull pressure , denies any radiation of the pain. Admits to some intermittent nausea. Denies vomiting. Pt states he has not had a bowel movement since monday. No difficulty urinating. Denies any chest pain or shortness of breath. 03/28: No acute events overnight. During this encounter the patient was resting comfortably in bed with no new complaints. Patient states he is still experiencing back pain, however mentioned he just received his pain medicine shortly before this encounter and now rates his pain as a 6 out of 10. Patient admits to a short episode of nausea this morning upon awakening. Denies any vomiting. Patient denies any bowel movements, but admits to some flatus. No difficulty urinating. Denies any chest pain, shortness of breath, or abdominal pain. 03/29: No acute events overnight. Pt was resting comfortably in bed this morning with no new complaints. Stated back pain has improved to 2/10. Pt stated he had 2 "formed" and "normal" brown bowel movements last night. Denies any chest pain , shortness of breath, abdominal pain, nausea, vomiting, melena, or hematochezia. - Constitutional Vitals: Temp Pulse Resp BP Pulse Ox 98.1 F 61 18 143/64 97 03/29/18 07:24 03/29/18 07:24 03/29/18 07:24 03/29/18 07:24 03/29/18 07:24 General appearance: Present: cachectic, A&O X 3, no acute distress Exam: Head: Atraumatic, normocephalic Eyes: PERRL, EOMI, conjunctiva pink, sclera anicteric Respiratory: Clear to auscultation bilaterally. No wheezes, rales, or rhonchi noted. Heart: RRR, S1 and S2 present. No murmur, gallop, clicks or rubs noted. GI: Abdomen soft, nontender, nondistended, with normoactive bowel sounds. Extremities: Warm, pulses palpable and symmetrical. No cyanosis or edema noted. Back: slight TTP on the left near 12th rib Neuro: Alert and oriented 3, no focal deficits, no speech difficulty. Skin: Warm, dry, intact. Internal Medicine: Result - Labs CBC & Chem 7: 03/29/18 03:47 03/29/18 03:47 Labs: Short CBC 03/29/18 Range/Units 03:47 WBC 5.9 (4.3-11.1) K/mcL Hgb 9.0 L (12.9-16.9) g/dL Hct 27.4 L (37.5-50.1) % Plt Count 245 (140-400) K/mcL Neutrophils # 3.2 (1.6-8.9) K/mcL BMP 03/29/18 03:47 Sodium 136 Potassium 3.0 L Chloride 110 H Carbon Dioxide 19 L BUN 12 Creatinine 0.73 Glucose 86 Calcium 7.4 L - ABG Interpretation ABG results: PT/INR, D-dimer PT 12.4 Seconds (9.4-12.1) H 03/25/18 12:31 - VTE Reasons for not Prescribing Prophylaxis: Medical contraindication Documentation of Mechanical Device: Intermittent pneumatic compression device Consult Discharge Plan - Plan Referrals: Syeda Dubose CNP [Primary Care Provider] - 04/03/18 1:20 pm <Corona Thao - Last Filed: 03/29/18 18:36> Date of Encounter: 03/29/18 - Assessment and plan (1) GI bleed Current Visit: Yes Status: Acute Qualifiers: GI bleed type/associated pathology: melena Qualified Code(s): K92.1 - Melena (2) Acute blood loss anemia Current Visit: Yes Status: Resolved (3) Hypertension Current Visit: Yes Status: Chronic Qualifiers: Hypertension type: essential hypertension Qualified Code(s): I10 - Essential (primary) hypertension (4) Fall Current Visit: No Status: Acute Qualifiers: Encounter type: subsequent encounter Qualified Code(s): W19.XXXD - Unspecified fall, subsequent encounter (5) Abdominal aortic aneurysm Current Visit: Yes Status: Acute Qualifiers: Presence of rupture: without rupture Qualified Code(s): I71.4 - Abdominal aortic aneurysm, without rupture - Time Spent With Patient Total time spent is greater than 50% in coordination of care (as documented) at patient's floor/unit and/or counseling patient: - Constitutional Vitals: Temp Pulse Resp BP Pulse Ox 98.3 F 72 16 119/66 98 03/29/18 16:30 03/29/18 16:30 03/29/18 16:30 03/29/18 16:30 03/29/18 16:30 Internal Medicine: Result - Labs CBC & Chem 7: 03/29/18 03:47 03/29/18 03:47 Labs: Short CBC 03/29/18 Range/Units 03:47 WBC 5.9 (4.3-11.1) K/mcL Hgb 9.0 L (12.9-16.9) g/dL Hct 27.4 L (37.5-50.1) % Plt Count 245 (140-400) K/mcL Neutrophils # 3.2 (1.6-8.9) K/mcL BMP 03/29/18 03:47 Sodium 136 Potassium 3.0 L Chloride 110 H Carbon Dioxide 19 L BUN 12 Creatinine 0.73 Glucose 86 Calcium 7.4 L - ABG Interpretation ABG results: PT/INR, D-dimer PT 12.4 Seconds (9.4-12.1) H 03/25/18 12:31 - Attending Attestation I examined this patient and my medical decision-making was reviewed with the Resident Physician on 03/29/18. I agree with the documented findings, disposition and treatment plan as described except to the extent set forth below. Mr Almazan is currently admitted for acute GI bleed and anemia. He remains moderate to high risk due to potential for worsening clinical status. Mr Almazan is waiting for endoscopy today. No abd pain. No CP or SOB. No cough. No fever or chills. Exam alert Comfortable now Mucus membranes dry Heart reg No wheeze ABd soft I/P 1. Melena - to have endoscopy now 2. anemia Further diagnoses and plan as above.
[2018-03-29] MEDS: Sennosides 8.6 MG TABLET PO SCH ×2 (08:39→20:50)
[2018-03-29] MEDS: Finasteride 5 MG TABLET PO SCH (08:39)
[2018-03-29] MEDS: Gabapentin 100 MG CAPSULE PO SCH (08:39)
[2018-03-29] MEDS: Lisinopril 20 MG TABLET PO SCH (08:39)
[2018-03-29] MEDS: Isosorbide MONOnitrate (24 HR) 30 MG TAB.ER.24H PO SCH (08:39)
[2018-03-29] MEDS ORDERED: *HR* Propofol 200 MG/20 ML VIAL IVP ONE ×2 (13:53→14:01)
[2018-03-29] MEDS ORDERED: Lidocaine -MPF 2% 2 ML VIAL ONE (14:00)
[2018-03-29] MEDS ORDERED: *HR* Succinylcholine 200 MG/10 ML VIAL IVP ONE (14:21)
[2018-03-29] MEDS ORDERED: 0.9 % Sodium Chloride 1,000 ML IVC SCH (14:30)
--- NOTE | 2018-03-29 14:50 | Anesthesia Evaluation PreOp ---
Date of Encounter: 03/29/18 Time of Encounter: 14:45 - Past History Planned Operation: colonoscopy Cardiac History: MT, HTN, Hyperlipidemia, Cardiac Stent (Multiple MT's, cardiac stents x 4) Pulmonary History: Former smoker, COPD [employer]DER History: TIA (No deficits) Other Medical History: GERD Anesthesia History: Past Anesthesia (Just had a colonscopy last month for anemia. Was transfused at that time. Returned to ER with abd. pain and again had low Hgb and was retransfused.) Alcohol Use: none Drug use: none Medications and Allergies Isosorbide MONOnitrate [Isosorbide Mononitrate] 30 mg PO DAILY 06/09/15 [History ] Simvastatin [Zocor] 10 mg PO DAILY 02/05/16 [History] ALPRAZolam [Xanax 0.25 MG Tablet] 0.25 mg PO TID 06/11/17 [History] Nitroglycerin [Nitrostat] 0.4 mg SL Q5M PRN 06/11/17 [History] Omeprazole [PriLOSEC] 40 mg PO DAILY 06/11/17 [History] Orphenadrine [Norflex] 100 mg PO Q12HR #20 tablet.er 11/23/17 [Rx] Clopidogrel [Plavix] 75 mg PO DAILY 02/26/18 [History] Finasteride [Proscar] 5 mg PO DAILY 02/26/18 [History] Lisinopril [Zestril] 40 mg PO DAILY 02/26/18 [History] Metoclopramide HCl 10 mg PO BID 02/26/18 [History] Ranitidine HCl [Zantac] 300 mg PO DAILY 02/26/18 [History] Tamsulosin [Flomax] 0.4 mg PO DAILY 02/26/18 [History] Tizanidine HCl 2 mg PO Q8H PRN 02/26/18 [History] Sucralfate [Carafate] 1 gm PO TIDAC #90 udc 02/28/18 [Rx] Gabapentin [Neurontin] 100 mg PO DAILY 03/25/18 [History] HYDROcodone/Acet 7.5/325 mg [[place] 7.5-325 mg] 1 tab PO Q6H 03/25/18 [History] Nitrofurantoin Monohyd/M-Cryst [Macrobid 100 mg Capsule] 100 mg PO Q12H [History] 3 Allergy/AdvReac Type Severity Reaction Status Date / Time Iodinated Contrast- Oral and Allergy Anaphylaxis Verified 03/25/18 14:46 IV Dye - Meds/Allergy Pre-op Review Medications Reviewed: Yes Allergies Reviewed: Yes Beta Blockers on Current Med List: No Anesthesia Results - Labs 03/29/18 03:47 03/29/18 03:47 - Imaging EKG: report reviewed (sinus rhythm, RBBB, intraventricular conduction delay) Additional studies: EF 60%, good wall motion, no ischemia Anesthesia Exam Selected Entries 03/29/18 14:28 Temperature 98.1 F Pulse Rate 57 Respiratory Rate 18 Blood Pressure 162/75 O2 Sat by Pulse Oximetry 99 Weight: 61 kg NPO (# of Hours): over 8 hours - HEENT Pupil (Motor): Pupils equal Mallampati: I Teeth: Edentulous Oral Opening: Greater than 3 - Cardiac Rhythm: Regular Murmur: None - Pulmonary Breath Sounds: bilateral Clear Respiratory Effort: Symmetrical Anesthesia Assess/Plan ASA Score: 3 Modified Fish Scale for Level of Consciousness: Cooperative, oriented, and tranquil Anesthetic Plan: MAC Monitoring Plan: Standard Monitors Recovery Plan: Other (Discussed MAC, agreed to proceed.)
[2018-03-30] MEDS: D5% in 0.45% NACL 1,000 ML IVC SCH (03:28)
[2018-03-30] MEDS: Pantoprazole 40 MG in 0.9 % Sodium Chloride Mini Bag 100 ML IVC SCH ×2 (03:29→08:02)
[2018-03-30 04:10] LABS: Basophils # 0.1 K/mcL (0.0-0.2); Eosinophils # 0.2 K/mcL (0.0-0.6); Eosinophils % 4.5 %; Hematocrit 28.2 % (37.5-50.1); Hemoglobin 9.3 g/dL (12.9-16.9); Immature Granulocytes % 0.2 % (0-4); Lymphocytes # 1.8 K/mcL (0.6-4.6); Lymphocytes % 35.4 %; Mean Corpuscular Hemoglobin 28.1 pg (28.0-33.3); Mean Corpuscular Volume 85.2 fL (83.0-100.0); Mean Platelet Volume 9.7 fL (9.4-12.4); Monocytes # 0.6 K/mcL (0.0-1.3); Monocytes % 12.3 %; Neutrophils # 2.4 K/mcL (1.6-8.9); Platelet Count 220 K/mcL (140-400); Red Blood Count 3.31 M/mcL (4.19-5.50); Red Cell Distribution Width 16.3 % (11.5-14.5); Segmented Neutrophils % 46.6 %
[2018-03-30 04:25] LABS: BUN/Creatinine Ratio 12 (6-26); Blood Urea Nitrogen 9 mg/dL (8-23); Calcium 7.5 mg/dL (8.6-10.3); Carbon Dioxide 20 mEq/L (23-29); Chloride 114 mEq/L (98-107); Glucose 89 mg/dL (70-105); Osmolality,Calculated 284 (280-300); Potassium 3.9 mEq/L (3.5-5.1); Sodium 138 mEq/L (136-145); eGFR For African Americans > 60 (> 60); eGFR For Non-African Americans > 60 (> 60)
[2018-03-30 07:22] VITALS: BP 136/81
[2018-03-30] MEDS: Finasteride 5 MG TABLET PO SCH (08:01)
[2018-03-30] MEDS: Isosorbide MONOnitrate (24 HR) 30 MG TAB.ER.24H PO SCH (08:01)
[2018-03-30] MEDS: Sennosides 8.6 MG TABLET PO SCH (08:01)
[2018-03-30] MEDS: Gabapentin 100 MG CAPSULE PO SCH (08:02)
[2018-03-30] MEDS: Lisinopril 20 MG TABLET PO SCH (08:02)
[2018-03-30] MEDS: OXYCODONE Oral CONC 10 MG/0.5 ML ORAL.SYG SL PRN ×2 (08:03→12:14)
--- NOTE | 2018-03-30 10:42 | Discharge Summary ---
<Misael Garcia - Last Filed: 03/30/18 10:42> - NOTES TO OUTPATIENT PROVIDER Notes to Outpatient Provider: Mr. Almazan was admitted for back pain and a GI bleed of unknown origin which resulted in the transfusion of 4 units pRBCs. Source of bleed was not located. Colonoscopy revealed diverticulosis and internal hemorrhoids. CT scan revealed 4cm AAA without evidence of leak, and bilateral nephrolithiasis. Date of Encounter: 03/30/18 Time of Encounter: 10:41 - Discharge Diagnosis (1) Hypertension Priority: Secondary Status: Chronic Assessment and Plan: Continue Lisinopril 40mg Qualifiers: Hypertension type: essential hypertension Qualified Code(s): I10 - Essential (primary) hypertension (2) Abdominal aortic aneurysm Priority: Secondary Status: Acute Assessment and Plan: Follow-up with vascular surgery. Stable and nonruptured 4 cm. Qualifiers: Presence of rupture: without rupture Qualified Code(s): I71.4 - Abdominal aortic aneurysm, without rupture (4) GI bleed Priority: Primary Status: Resolved Assessment and Plan: No evidence of acute bleeding. Colonoscopy revealed diverticulosis, external hemorrhoids and internal hemorrhoids. Qualifiers: GI bleed type/associated pathology: melena Qualified Code(s): K92.1 - Melena (5) Acute blood loss anemia Priority: Secondary Status: Resolved (6) Nephrolithiasis Priority: Secondary Status: Acute Assessment and Plan: Bilateral nephrolithiasis without obstruction Hospital course: Mr. Almazan is a 77 year old male Discharge discussed with: patient, family, nurse - Time Spent with Patient Total time spent providing and/or coordinating discharge services: - Discharge Medications Prescriptions: Oxycodone HCl/Acetaminophen [Percocet 5-325 mg Tablet] 1 each PO Q6HR 5 Days # 20 tablet Home Medications: Isosorbide MONOnitrate [Isosorbide Mononitrate] 30 mg PO DAILY 06/09/15 [History ] Simvastatin [Zocor] 10 mg PO DAILY 02/05/16 [History] ALPRAZolam [Xanax 0.25 MG Tablet] 0.25 mg PO TID 06/11/17 [History] Nitroglycerin [Nitrostat] 0.4 mg SL Q5M PRN 06/11/17 [History] Omeprazole [PriLOSEC] 40 mg PO DAILY 06/11/17 [History] Orphenadrine [Norflex] 100 mg PO Q12HR #20 tablet.er 11/23/17 [Rx] Clopidogrel [Plavix] 75 mg PO DAILY 02/26/18 [History] Finasteride [Proscar] 5 mg PO DAILY 02/26/18 [History] Lisinopril [Zestril] 40 mg PO DAILY 02/26/18 [History] Metoclopramide HCl 10 mg PO BID 02/26/18 [History] Ranitidine HCl [Zantac] 300 mg PO DAILY 02/26/18 [History] Tamsulosin [Flomax] 0.4 mg PO DAILY 02/26/18 [History] Tizanidine HCl 2 mg PO Q8H PRN 02/26/18 [History] Sucralfate [Carafate] 1 gm PO TIDAC #90 udc 02/28/18 [Rx] Gabapentin [Neurontin] 100 mg PO DAILY 03/25/18 [History] Nitrofurantoin Monohyd/M-Cryst [Macrobid 100 mg Capsule] 100 mg PO Q12H [History] Oxycodone HCl/Acetaminophen [Percocet 5-325 mg Tablet] 1 each PO Q6HR 5 Days # 20 tablet 03/30/18 [Rx] Allergies/Adverse Reactions: 3 Allergy/AdvReac Type Severity Reaction Status Date / Time Iodinated Contrast- Oral and Allergy Anaphylaxis Verified 03/25/18 14:46 IV Dye Date of admission: 03/25/18 17:30 Primary care physician: Syeda Dubose CNP Consults: 03/27/18 11:55 Consult to Gastroenterology [CONS] Routine Consulting Provider: [facility] Reason for Consult: GI Bleed Time Notified: 11:55 Call Completed: Yes 03/29/18 13:53 OT [Consult to Occupational Therapy] [CONS] Routine Comment: Evaluate, develop and implement POC Reason for Consult: multiple falls Does patient have active BEDREST order?: No Is patient medically & hemodynamically stable?: Yes Discharging clinician: Misael Garcia - Constitutional Vitals: Temp Pulse Resp BP Pulse Ox 98.4 F 56 16 136/81 93 03/30/18 07:14 03/30/18 07:14 03/30/18 07:14 03/30/18 07:14 03/30/18 07:14 General appearance: Present: cachectic, A&O X 3, no acute distress Exam: Head: Atraumatic, normocephalic Eyes: PERRL, EOMI, conjunctiva pink, sclera anicteric Respiratory: Clear to auscultation bilaterally. No wheezes, rales, or rhonchi noted. Heart: RRR, S1 and S2 present. No murmur, gallop, clicks or rubs noted. GI: Abdomen soft, nontender, nondistended, with normoactive bowel sounds. Extremities: Warm, pulses palpable and symmetrical. No cyanosis or edema noted. Back: slight TTP on the left near 12th rib Neuro: Alert and oriented 3, no focal deficits, no speech difficulty. Skin: Warm, dry, intact. - Patient Status Disposition: Home, Self-Care Condition: Undetermined Functional capacity at discharge: independent ambulation Overall status at discharge: patient is back to baseline - Discharge Instructions Instructions: Oxycodone/Acetaminophen (By mouth), Gastrointestinal Bleeding ( GEN), Peripheral Vascular Disorders (DC), Chronic Hypertension (DC), Anemia (GEN ), Fall Prevention (DC) Follow Up With: Syeda Dubose CNP [Primary Care Provider] - 04/03/18 1:20 pm Jason Williamson MD [Partnered Physician] - (appt.requested for vascular eitanjose f nicholson april 11 for urology) Additional Instructions: Follow up with urology for kidney stones Follow up with vascular surgery for abdominal aortic aneurysm - Diet and Activity Activity: increase activity as tolerated Diet: low fat, low cholesterol, low salt diet - VTE Reasons for not Prescribing Prophylaxis: Medical contraindication Documentation of Mechanical Device: Intermittent pneumatic compression device <Corona Thao - Last Filed: 03/30/18 17:43> Date of Encounter: 03/30/18 - Discharge Diagnosis (1) Anemia Priority: Primary Status: Acute Qualifiers: Anemia type: other cause Other causes of anemia: acute posthemorrhagic Qualified Code(s): D62 - Acute posthemorrhagic anemia (2) Hypertension Status: Chronic Qualifiers: Hypertension type: essential hypertension Qualified Code(s): I10 - Essential (primary) hypertension (3) Fall Priority: Secondary Status: Acute Qualifiers: Encounter type: subsequent encounter Qualified Code(s): W19.XXXD - Unspecified fall, subsequent encounter (4) Abdominal aortic aneurysm Status: Chronic Qualifiers: Presence of rupture: without rupture Qualified Code(s): I71.4 - Abdominal aortic aneurysm, without rupture (5) Nephrolithiasis Status: Chronic (6) CAD (coronary artery disease) Priority: Secondary Status: Chronic Qualifiers: Coronary Disease-Associated Artery/Lesion type: grindstone artery [place] vs. transplanted heart: grindstone heart Associated angina: without angina Qualified Code(s): I25.10 - Atherosclerotic heart disease of grindstone coronary artery without angina pectoris (7) Back pain Priority: Secondary Status: Chronic Qualifiers: Back pain location: low back pain Chronicity: chronic Back pain laterality: bilateral Sciatica presence: without sciatica Qualified Code(s) : M54.5 - Low back pain; G89.29 - Other chronic pain Hospital course: Mr. Almazan is a 77 year old male - Time Spent with Patient Total time spent providing and/or coordinating discharge services: 39min Date of admission: 03/25/18 17:30 Primary care physician: Syeda Dubose CNP Consults: 03/27/18 11:55 Consult to Gastroenterology [CONS] Routine Consulting Provider: Gastroenterjefferson Betancourt Reason for Consult: GI Bleed Time Notified: 11:55 Call Completed: Yes 03/29/18 13:53 OT [Consult to Occupational Therapy] [CONS] Routine Comment: Evaluate, develop and implement POC Reason for Consult: multiple falls Does patient have active BEDREST order?: No Is patient medically & hemodynamically stable?: Yes - Constitutional Vitals: Temp Pulse Resp BP Pulse Ox 98.4 F 56 16 136/81 93 03/30/18 07:14 03/30/18 07:14 03/30/18 07:14 03/30/18 07:14 03/30/18 07:14 - Attending Attestation I examined this patient and my medical decision-making was reviewed with the Resident Physician on 03/30/18. I agree with the documented findings, disposition and treatment plan as described except to the extent set forth below. Mr Almazan has been admitted for anemia related to presumed GI bleed. He also has significant back pain which appears to be related to nephrolithiasis. He has been transfused with improvement. He underwent colonoscopy with no active bleeding. Today he feels OK. He is still having pain but no fever. He feels ready for discharge home with outpatient follow up. Exam alert Comfortable Mucus membranes dry Heart reg No wheeze Plan D/C home today.
--- NOTE | 2018-03-30 15:41 | Physician Discharge Referral ---
Home Health/Hosp Referral Info Transfer to: Home Health Provider in Charge Post Discharge: PCP - Diagnosis (1) Nephrolithiasis Priority: Primary Status: Acute (2) Hypertension Priority: Secondary Status: Chronic (3) Abdominal aortic aneurysm Priority: Secondary Status: Chronic (4) Fall Priority: Secondary Status: Acute - Respiratory Orders None Smoking Cessation: Smoking cessation has been advised. For more information, call the [place] Tobacco Quit Line at 3-527-UFIB-NOW. - Diet/Nutrition Diet/Nutrition Orders: Cardiac - Activity Activity Orders: Up ad thaddeus - Services Needed Following services are medically necessary services: Nursing, Home Health Aide, Physical Therapy, Occupational Therapy - Transfer Medications Prescriptions: Oxycodone HCl/Acetaminophen [Percocet 5-325 mg Tablet] 1 each PO Q6HR 5 Days # 20 tablet Home Medications: Isosorbide MONOnitrate [Isosorbide Mononitrate] 30 mg PO DAILY 06/09/15 [History ] Simvastatin [Zocor] 10 mg PO DAILY 02/05/16 [History] ALPRAZolam [Xanax 0.25 MG Tablet] 0.25 mg PO TID 06/11/17 [History] Nitroglycerin [Nitrostat] 0.4 mg SL Q5M PRN 06/11/17 [History] Omeprazole [PriLOSEC] 40 mg PO DAILY 06/11/17 [History] Orphenadrine [Norflex] 100 mg PO Q12HR #20 tablet.er 11/23/17 [Rx] Clopidogrel [Plavix] 75 mg PO DAILY 02/26/18 [History] Finasteride [Proscar] 5 mg PO DAILY 02/26/18 [History] Lisinopril [Zestril] 40 mg PO DAILY 02/26/18 [History] Metoclopramide HCl 10 mg PO BID 02/26/18 [History] Ranitidine HCl [Zantac] 300 mg PO DAILY 02/26/18 [History] Tamsulosin [Flomax] 0.4 mg PO DAILY 02/26/18 [History] Tizanidine HCl 2 mg PO Q8H PRN 02/26/18 [History] Sucralfate [Carafate] 1 gm PO TIDAC #90 udc 02/28/18 [Rx] Gabapentin [Neurontin] 100 mg PO DAILY 03/25/18 [History] Nitrofurantoin Monohyd/M-Cryst [Macrobid 100 mg Capsule] 100 mg PO Q12H [History] Oxycodone HCl/Acetaminophen [Percocet 5-325 mg Tablet] 1 each PO Q6HR 5 Days # 20 tablet 03/30/18 [Rx] Allergies/Adverse Reactions: 3 Allergy/AdvReac Type Severity Reaction Status Date / Time Iodinated Contrast- Oral and Allergy Anaphylaxis Verified 03/25/18 14:46 IV Dye Certification: Further, I certify that my clinical findings support that this patient is homebound (i.e. absences from home require considerable and taxing effort and are for medical reasons or jewish services or infrequently or short duration when for other reasons) because: Homebound Reason: Patient requires assistance of a person or device to safely leave home Attestation: My signature below is to certify that this patient is under my care and that I, or nurse practitioner, or a physician's imaging assistant working with me, has a face-to -face encounter with this patient.
== END 2018-03-30 13:47 | disposition home or self-care (01) | DRG 378 ==
LOC: ICNU 11:33 → EMEROO 11:33 → ICNU 16:01 → SUATTDRO 17:30 → 2NENU 03-26 04:01
PROVIDERS: ADMIT Internal Medicine; ATTEND Internal Medicine

== ENCOUNTER 2018-05-18 10:03 | Inpatient (IN) ==
[2018-05-18] MEDS ORDERED: 0.9 % Sodium Chloride 1,000 ML IVC ONE (10:21)
[2018-05-18 10:44] LABS: Basophils % 0.4 %; Hemoglobin 7.2 g/dL (12.9-16.9); Immature Granulocytes % 1.1 % (0-4); Lymphocytes # 2.8 K/mcL (0.6-4.6); Mean Corpuscular HGB Conc 31.3 g/dL (31.6-35.5); Mean Corpuscular Hemoglobin 26.8 pg (28.0-33.3); Mean Corpuscular Volume 85.5 fL (83.0-100.0); Mean Platelet Volume 9.6 fL (9.4-12.4); Monocytes # 0.4 K/mcL (0.0-1.3); Monocytes % 3.9 %; Neutrophils # 6.4 K/mcL (1.6-8.9); Nucleated Red Blood Cells 1.4 /100 WBC (0); Platelet Count 296 K/mcL (140-400); Red Blood Count 2.69 M/mcL (4.19-5.50); Red Cell Distribution Width 15.9 % (11.5-14.5); Segmented Neutrophils % 65.6 %
[2018-05-18 10:51] LABS: INR 1.1
[2018-05-18 10:53] LABS: Activated Partial Thrombo Time 32.4 Seconds (26.0-36.0)
--- NOTE | 2018-05-18 11:06 | Emergency Department Note ---
Disposition Clinical Impression: Upper GI bleed Disposition: Admitted As Inpatient Condition: Good Referrals: Syeda Dubose CNP [Primary Care Provider] - Forms: ED Satisfaction Letter GI Bleed HPI - General Chief complaint: ED GI Bleed Stated complaint: Rectal bleeding,[id number] Time Seen by Provider: 05/18/18 10:14 Source: patient Limitations: no limitations Nursing Notes Reviewed: Yes Vital Signs Reviewed: Yes - History of Present Illness HPI Narrative: Patient presents today for evaluation of dizziness, weakness, syncopal episode where he fell and hit the back of his head. Patient states that he has been weak and dizzy for the last 2-3 days. Dizziness and weakness are worse with exertion. Patient states that he fell while he was going to the bathroom. Was helps to a chair. Friend is at bedside who helps take good care of him. Patient had one episode of bright red blood emesis. The patient had an episode of urinary incontinence that he does not have a history of seizures and did not have any reported tonic-clonic activity. He takes Plavix one pill per day secondary to previous stents and [place] in the past. The patient does not take any other anticoagulation. Review of systems positive for shortness of breath, dizziness, syncopal event. Positive for dysuria. Negative for fevers chills, chest pain, palpitations. - Related Data Home Medications Medication Instructions Recorded Confirmed Isosorbide MONOnitrate [Isosorbide 30 mg PO DAILY 06/09/15 05/18/18 Mononitrate] Simvastatin [Zocor] 10 mg PO DAILY 02/05/16 05/18/18 ALPRAZolam [Xanax 0.25 MG Tablet] 0.25 mg PO TID 06/11/17 05/18/18 Nitroglycerin [Nitrostat] 0.4 mg SL Q5M PRN 06/11/17 05/18/18 Omeprazole [PriLOSEC] 40 mg PO DAILY 06/11/17 05/18/18 Clopidogrel [Plavix] 75 mg PO DAILY 02/26/18 05/18/18 Finasteride [Proscar] 5 mg PO DAILY 02/26/18 05/18/18 Lisinopril [Zestril] 40 mg PO DAILY 02/26/18 05/18/18 Metoclopramide HCl 10 mg PO BID 02/26/18 05/18/18 Ranitidine HCl [Zantac] 300 mg PO DAILY 02/26/18 05/18/18 Tamsulosin [Flomax] 0.4 mg PO DAILY 02/26/18 05/18/18 Tizanidine HCl 4 mg PO Q12H PRN 02/26/18 05/18/18 Gabapentin [Neurontin] 100 mg PO TID 03/25/18 05/18/18 Albuterol Sulfate [Ventolin Hfa] 2 puff IH Q6H PRN 05/09/18 05/18/18 Ciprofloxacin HCl [Cipro] 500 mg PO BID 05/09/18 05/18/18 Ferrous Sulfate [Iron] 325 mg PO DAILY 05/09/18 05/18/18 Fluticasone/Salmeterol [Advair 1 each IH BID 05/09/18 05/18/18 250-50 Diskus] Nabumetone [Relafen] 500 mg PO BID 05/18/18 05/18/18 Previous Rx's Medication Instructions Recorded Sucralfate [Carafate] 1 gm PO TIDAC #90 udc 02/28/18 HYDROcodone/Acet 5/325 mg [[place] 1 tab PO Q6H PRN 3 Days #10 tab 05/09/18 5-325 mg] Allergies Allergy/AdvReac Type Severity Reaction Status Date / Time Iodinated Contrast- Oral and Allergy Anaphylaxis Verified 03/25/18 14:46 IV Dye Review of Systems: As Per HPI Past Medical History - Past Medical History Medical history: Reports: aortic aneurysm, arthritis, COPD, coronary artery disease, GERD, GI bleed, hyperlipidemia, hypertension, kidney stones, myocardial infarction, TIA, other Surgical history: Reports: angioplasty/stent, appendectomy, herniorrhaphy, hip replacement, orthopedic, other, sinus surgery, other Psychiatric history: Reports: anxiety, depression - Social History Smoking Status: Never smoker Smokeless Tobacco Status: No Alcohol use: Reports: none Drug use: Reports: none Physical Exam General: No acute distress, talkative, pale Head: Normocephalic Atraumatic Eyes: PERRL, EOMI ENT: Airway patent, no stridor Neck: supple Chest: Lungs clear to auscultation bilateral Cardiac: Regular rate and rhythm, no murmurs, rubs or gallops Abdomen: soft, nontender, nondistended; no guarding, rebound, or tenderness to percussion Skin: No rash, normal skin tone Neuro: Awake alert and oriented 3. - General Limitations: no limitations General appearance: alert, in no apparent distress Course - Reevaluation(s) Reevaluation #1: Issue with 3 g drop in his hemoglobin. Elevated BUNs. Prior red blood emesis as well as melanotic stool on rectal exam. GI bleed. Previous records show ulcer and esophagitis. 1 unit of blood will be transfused. Protonix bolus and infusion started. A call will be placed to GI. After discussion with GI. Recommends 2 units total. Admission to the ICU and they will scope in the ICU this afternoon. - Consultations Consultation #1: Discussed with physician. Patient accepted for admission. Vital Signs Temperature 97.9 F 05/18/18 10:07 Pulse Rate 94 05/18/18 10:07 Respiratory Rate 15 05/18/18 10:07 Blood Pressure 118/73 05/18/18 10:07 O2 Sat by Pulse Oximetry 97 05/18/18 10:07 Temperature 97.9 F 05/18/18 10:14 Pulse Rate 80 05/18/18 11:22 Respiratory Rate 16 05/18/18 11:22 Blood Pressure 126/88 05/18/18 11:22 O2 Sat by Pulse Oximetry 96 05/18/18 11:22 Oxygen Delivery Oxygen Delivery Room Air GI Bleed - Medical Records Medical records reviewed: Yes I reviewed the patient's medical records. - Lab Data Lab results reviewed: Yes I reviewed the patient's lab results. Result diagrams: 05/18/18 10:34 05/18/18 10:34 Lab Results 05/18/18 05/18/18 05/18/18 Range/Units 10:34 10:34 10:34 WBC 9.8 (4.3-11.1) K/mcL RBC 2.69 L (4.19-5.50) M/mcL Hgb 7.2 L D (12.9-16.9) g/dL Hct 23.0 L (37.5-50.1) % MCV 85.5 (83.0-100.0) fL MCH 26.8 L (28.0-33.3) pg MCHC 31.3 L (31.6-35.5) g/dL RDW 15.9 H (11.5-14.5) % Plt Count 296 (140-400) K/mcL MPV 9.6 (9.4-12.4) fL Immature Gran % 1.1 (0-4) % Seg Neutrophils % 65.6 % Lymphocytes % 29.0 % Monocytes % 3.9 % Eosinophils % 0.0 % Basophils % 0.4 % Neutrophils # 6.4 (1.6-8.9) K/mcL Lymphocytes # 2.8 (0.6-4.6) K/mcL Monocytes # 0.4 (0.0-1.3) K/mcL Eosinophils # 0.0 (0.0-0.6) K/mcL Basophils # 0.0 (0.0-0.2) K/mcL Nucleated RBCs/100 WBC 1.4 H (0) /100 WBC PT 12.0 (9.4-12.1) Seconds INR 1.1 APTT 32.4 (26.0-36.0) Seconds Sodium 141 (136-145) mEq/L Potassium 4.3 (3.5-5.1) mEq/L Chloride 117 H (98-107) mEq/L Carbon Dioxide 17 L (23-29) mEq/L BUN 75 H (8-23) mg/dL Creatinine 0.85 (0.70-1.30) mg/dL Est GFR ( Amer) > 60 (> 60) Est GFR (Non-Af Amer) > 60 (> 60) BUN/Creatinine Ratio 88 H (6-26) Glucose 197 H (70-105) mg/dL Calculated Osmolality 320 H (280-300) Calcium 7.9 L (8.6-10.3) mg/dL Stool Occult Bld Scrn (Negative) Blood Type Antibody Screen Crossmatch 05/18/18 05/18/18 Range/Units 10:34 Unknown WBC (4.3-11.1) K/mcL RBC (4.19-5.50) M/mcL Hgb (12.9-16.9) g/dL Hct (37.5-50.1) % MCV (83.0-100.0) fL MCH (28.0-33.3) pg MCHC (31.6-35.5) g/dL RDW (11.5-14.5) % Plt Count (140-400) K/mcL MPV (9.4-12.4) fL Immature Gran % (0-4) % Seg Neutrophils % % Lymphocytes % % Monocytes % % Eosinophils % % Basophils % % Neutrophils # (1.6-8.9) K/mcL Lymphocytes # (0.6-4.6) K/mcL Monocytes # (0.0-1.3) K/mcL Eosinophils # (0.0-0.6) K/mcL Basophils # (0.0-0.2) K/mcL Nucleated RBCs/100 WBC (0) /100 WBC PT (9.4-12.1) Seconds INR APTT (26.0-36.0) Seconds Sodium (136-145) mEq/L Potassium (3.5-5.1) mEq/L Chloride (98-107) mEq/L Carbon Dioxide (23-29) mEq/L BUN (8-23) mg/dL Creatinine (0.70-1.30) mg/dL Est GFR ( Amer) (> 60) Est GFR (Non-Af Amer) (> 60) BUN/Creatinine Ratio (6-26) Glucose (70-105) mg/dL Calculated Osmolality (280-300) Calcium (8.6-10.3) mg/dL Stool Occult Bld Scrn Positive A (Negative) Blood Type A NEGATIVE Antibody Screen NEGATIVE Crossmatch See Detail - Radiology Data Radiology results reviewed: Yes I reviewed the patient's radiology results. - EKG Data EKG attestation: Yes I reviewed and interpreted this EKG. EKG results narrative: EKG shows sinus rhythm with ventricular rate of 89. AK 155. QRS 138. QTC 516. Patient has diffuse changes throughout the anterior leads with no previous EKG for comparison.
[2018-05-18 11:11] LABS: BUN/Creatinine Ratio 88 (6-26); Blood Urea Nitrogen 75 mg/dL (8-23); Calcium 7.9 mg/dL (8.6-10.3); Carbon Dioxide 17 mEq/L (23-29); Chloride 117 mEq/L (98-107); Glucose 197 mg/dL (70-105); Osmolality,Calculated 320 (280-300); Potassium 4.3 mEq/L (3.5-5.1); Sodium 141 mEq/L (136-145); eGFR For Non-African Americans > 60 (> 60)
[2018-05-18] MEDS ORDERED: Pantoprazole 40 MG VIAL IVP ONE (11:36)
[2018-05-18] MEDS ORDERED: 0.9 % Sodium Chloride 250 ML ONE (13:11)
[2018-05-18] MEDS ORDERED: Naloxone 0.4 MG/ML INJ IVP PRN ×2 (13:43→23:35)
--- NOTE | 2018-05-18 13:51 | Gastroenterology Consult Note ---
<Cecily Mobley - Last Filed: 05/18/18 13:48> Date of Encounter: 05/18/18 Time of Encounter: 12:50 - Assessment and plan (1) GI bleed Status: Acute Assessment and plan: 77 year old male who presents with hemetemesis and melonic stools. Hgb is 7.2 was [address] Vilchis, will transfuse 2 units and transfer to ICU for EGD with bleeding control tonight. Hold plavix. Qualifiers: GI bleed type/associated pathology: gastrointestinal hemorrhage with hematemesis Qualified Code(s): K92.0 - Hematemesis (2) Anemia Status: Acute Qualifiers: Anemia type: other cause Other causes of anemia: acute posthemorrhagic Qualified Code(s): D62 - Acute posthemorrhagic anemia - Time Spent With Patient Total time spent is greater than 50% in coordination of care (as documented) at patient's floor/unit and/or counseling patient: GI History of Present Illness - Data of Consult Patient: known to practice within the last 3 years Consult date: 05/18/18 Requesting Physician: Bladimir Cat MD - Consult Narrative Reason for consult: upper GI bleed History of present illness: Mr rodríguez is a 77-year-old male with past medical history of aortic aneurysm arthritis COPD CAD GERD hyperlipidemia hypertension kidney stones and TIA. He presents today for evaluation of dizziness, weakness, syncopal episode where he fell and hit the back of his head. Patient states that he has been weak and dizzy for the last 2-3 days, worse with exertion. Patient states that he fell while he was going to the bathroom. He also had one episode ofode of bright red blood emesis. The patient had an episode of urinary incontinence that he does not have a history of seizures and did not have any reported tonic-clonic activity. He takes Plavix one pill per day secondary to previous stents and WI in the past. The patient does not take any other anticoagulation. Review of systems positive for shortness of breath, dizziness, syncopal event. Positive for dysuria. Negative for fevers chills, chest pain, palpitations. . CT abdomen shows No acute process demonstrated. Nonobstructing bilateral nephrolithiasis. Bilateral adrenal adenomas Cholelithiasis Hiatal hernia Colonic diverticulosis Possible rectal stool impaction Stable 3.8 cm abdominal aortic aneurysm and bilateral iliac artery aneurysms Colonoscopy: 04/11 diverticulosis, internal hemorrhoids, polyp in the hepatic flexure not biopsied due to plavix EGD: 03/12 severe ulcerated erosive bili grade D esophagitis, medium-sized hiatal hernia, evidence of antrectomy and gastroenteric anastomosis, Anticoagulants: plavix Past Med Surg Social Fam HX - Past Medical History Medical history: aortic aneurysm, arthritis, COPD, coronary artery disease, GERD , GI bleed, hyperlipidemia, hypertension, kidney stones, myocardial infarction, TIA, other Additional medical history: CAD. HTN. HLD. GERD. Ureteral stone Psychiatric history: anxiety, depression - Past Surgical History Surgical History: angioplasty/stent, appendectomy, herniorrhaphy, hip replacement, orthopedic, other, sinus surgery, other Additional surgical history: esophagus and stomach sx - Social History Smoking Status: Never smoker Smokeless Tobacco Status: No Alcohol use: none Drug use: none - Family History Father Living Status: Hx Family Cardiac Disorders: No Hx Family Respiratory Disorders: Yes Hx Family Cancer: Yes Hx Family GI Disorders: No Hx Family Endocrine Disorder: No Hx Family Neuromuscular Disorders: No Hx Family Neurologic Disorders: No Hx Family HEENT Disorders: No Hx Family Autoimmune Disorders: No Review of Systems: GI: as per [place] GENERAL: denies fever, has some chills EYES: denies yellow discoloration ENT: denies pain with swallowing or difficulty swallowing CARDIO: denies chest pain, palpitations RESP: Shortness of breath with exertion : denies change in color of urine NEURO: increased weakness HEME: Denies any bruising MS: denies joint pain, joint swelling or back pain. DERM: denies rash or itching PSYCH: Denies history of anxiety or depression - Constitutional Vitals: Temp Pulse Resp BP Pulse Ox 97.5 F L 71 18 139/78 96 05/18/18 13:46 05/18/18 13:35 05/18/18 13:46 05/18/18 13:46 05/18/18 11:22 Exam: CONSTITUTIONAL:~alert, no acute distress.~HEAD:~normocephalic.~EYES:~no jaundice.~NECK:~no obvious swelling.~HEART:~regular rate and rhythm, no murmurs. ~LUNGS:~bilateral fair air entry.~ABDOMEN:~non distended, soft, non tender, no masses palpable, no organomegaly.~RECTAL EXAM:~Deferred.~EXTREMITIES:~no clubbing, cyanosis or edema.~SKIN:~no stigmata of chronic liver disease.~ NEUROLOGIC:~no obvious focal defect.~~~~ Results - Labs CBC & Chem 7: 05/18/18 10:34 05/18/18 10:34 Labs: Last Result Calcium 7.9 mg/dL (8.6-10.3) L 05/18/18 10:34 Entire Visit Hgb 7.2 g/dL (12.9-16.9) L D 05/18/18 10:34 Hct 23.0 % (37.5-50.1) L 05/18/18 10:34 PT 12.0 Seconds (9.4-12.1) 05/18/18 10:34 - ABG ABG results: PT/INR, D-dimer PT 12.0 Seconds (9.4-12.1) 05/18/18 10:34 Consult Discharge Plan - Plan Instructions: Sucralfate (By mouth), Omeprazole (By mouth), Levofloxacin (By mouth), Gastrointestinal Bleeding (GEN), Chronic Obstructive Pulmonary Disease ( DC), Chronic Hypertension (DC), Anemia (GEN) Referrals: Syeda Dubose CNP [Primary Care Provider] - 05/29/18 10:20 am Jason Williamson MD [Partnered Physician] - 06/06/18 1:50 pm Prescriptions: levoFLOXacin [Levaquin] 750 mg PO DAILY 3 Days #3 tablet Omeprazole [PriLOSEC] 40 mg PO BID 30 Days #60 capsule. Sucralfate [Carafate] 1 gm PO QID 30 Days #120 udc <Carlos Vilchis - Last Filed: 06/12/18 15:54> Date of Encounter: 05/18/18 - Time Spent With Patient Total time spent is greater than 50% in coordination of care (as documented) at patient's floor/unit and/or counseling patient: GI History of Present Illness - Data of Consult Requesting Physician: Elisa Clayton MD - Consult Narrative History of present illness: Mr. Rodríguez is a 77 year old male - Constitutional Vitals: Temp Pulse Resp BP Pulse Ox 98.2 F 60 16 130/77 96 05/26/18 06:42 05/26/18 06:42 05/26/18 07:46 05/26/18 06:42 05/26/18 07:46 Results - Labs CBC & Chem 7: 05/26/18 06:24 05/25/18 04:00 Labs: Last Result Calcium 8.0 mg/dL (8.6-10.3) L 05/25/18 04:00 Entire Visit Hgb 9.2 g/dL (12.9-16.9) L 05/26/18 06:24 Hct 29.3 % (37.5-50.1) L 05/26/18 06:24 PT 12.8 Seconds (9.4-12.1) H 05/19/18 03:45 Total Bilirubin 0.5 mg/dL (0.3-1.0) 05/25/18 04:00 AST 25 Units/L (13-39) 05/25/18 04:00 ALT 76 Units/L (7-52) H 05/25/18 04:00 Carcinoembryonic Ag 4.6 ng/mL (Less than 5.0) 05/19/18 03:45 - ABG ABG results: PT/INR, D-dimer PT 12.8 Seconds (9.4-12.1) H 05/19/18 03:45 - Attending Attestation Acute UGI bleeding with melena and resultant anemia. Plan EGD SHILPA in ICU I have personally performed a face to face evaluation on this patient. I have reviewed and agree with the care plan. History and Exam by me shows:
--- NOTE | 2018-05-18 14:03 | Pulmonology History & Physical ---
<Malena Encinas - Last Filed: 05/18/18 19:40> Date of Encounter: 05/18/18 Time of Encounter: 14:03 Assessment and Plan (1) GI bleed Current visit: Yes Status: Acute He has history of chronic gastritis. On 02/26/18 he had an EGD for GI bleed and it showed Grade D esophagitis and on 02/27/18 he had a colonoscopy which showed diverticulosis and 5 mm non bleeding polyp which was resected. He had an EGD completed today which showed area of esophagitis which was injected with epinephrine. It is still unsure the site of active bleeding as he continues to bleed s/p EGD. He may benefit from a barium swallow study to determine the site of the bleed. He is on chronic plavix therapy for previous stenting and will have to determine if he still needs it given he continues to bleed. Continue H& H Q6HR. Keep NPO and continue IV protonix. Qualifiers: Gastritis type: chronic gastritis Qualified Code(s): K29.51 - Unspecified chronic gastritis with bleeding (2) Anemia Current visit: Yes Status: Acute He presented with hemoglobin of 7.2, his previous hemoglobin was 10.0. The anemia is due to acute GI bleed. He has history of diverticulosis which likely contributes to slow bleed. Additionally he has gastritis. He presented in February and March for GI bleed and has had no resolution. He underwent endoscopy and there epinephrine was used at the ulcer site of distal esophagus. Continue to monitor with H&H Q6HR. Qualifiers: Other causes of anemia: acute posthemorrhagic Qualified Code(s): D62 - Acute posthemorrhagic anemia (3) Gastritis Current visit: Yes Status: Acute He has history of gastritis and previously has had EGD for GI bleeds. He is on PPI and carafate at home for is chronic gastritis. He presented today for GI bleed and stated he was taking his home medications as prescribed. Continue IV protonix. Qualifiers: Gastritis type: other gastritis Gastritis bleeding: presence of bleeding unspecified Qualified Code(s): K29.50 - Unspecified chronic gastritis without bleeding (4) Anxiety Current visit: Yes Status: Acute History of anxiety and at home takes xanax 0.25 mg TID. He is now on ativan 0.5 mg Q8HR PRN. (5) HTN (hypertension) Current visit: Yes Status: Acute History of hypertension and at home takes lisinopril and nitroglycerin. He is on PRN IV lopressor during this admission in case of changes in his blood pressure. His blood pressure has remained stable during this admission. Qualifiers: Hypertension type: essential hypertension Qualified Code(s): I10 - Essential (primary) hypertension (6) Hyperlipidemia Current visit: No Status: Chronic History of hyperlipidemia and at home takes zocor Holding his PO medications given acute GI bleed. Qualifiers: Hyperlipidemia type: unspecified Qualified Code(s): E78.5 - Hyperlipidemia , unspecified (7) Aneurysm Current visit: No Status: Chronic History of 3.8 cm abdominal aortic aneurysm and bilateral iliac artery aneurysm. He will require repeat imaging in 1 year. (8) Myocardial infarction Current visit: No Status: Chronic History of SC and 4 stents. He is unsure when this SC was. He is on home Plavix likely due to the stents. Duen to his current bleed he is NPO. We will discuss with him abuot stopping plavix for 5 days so the EGD could be repeated to obtain biopsies. Qualifiers: Myocardial infarction type: unspecified Involved coronary artery: unspecified coronary artery Qualified Code(s): I21.9 - Acute myocardial infarction, unspecified (9) DVT prophylaxis Current visit: Yes Status: Acute Continue EPCDs. Not a candidate for anticoagulation given his current GI bleed (10) COPD (chronic obstructive pulmonary disease) Current visit: No Status: Chronic History of COPD and on advair at home. He is comfortable on room air and has no evidence of inhaler requirement at this time. Continue to monitor and if requirements change will add home advair or symbicort Qualifiers: COPD type: chronic bronchitis Chronic bronchitis type: unspecified Qualified Code(s): J42 - Unspecified chronic bronchitis History of Present Illness Chief complaint: GI bleed HPI: Mr. Almazan is a 77 year old male who presented to the ED for weakness and syncopal episode. He has past medical history of aortic aneurysm, COPD, CAD, GERD, GI bleed, hyperlipidemia, HTN, SC, TIA and kidney stones. He had one episode of bright red blood emesis and one episode of urinary incontinence. He was recently admitted on 03/30/18 for GI bleed and colonoscopy showed diverticulosis and internal hemorrhoids. On 02/26/18 he had an EGD which showed grade D esophagitis and gastroenteric anastomosis and on 02/27/18 he had a colonoscopy which showed tubular adenoma. This afternoon he is laying in bed comfortably, alert and oriented with congruent thought content. He has been nauseated with decreased in his appetite for a few months and stated two days ago he started vomiting and there was blood in his vomit. He continued to vomit and started to feel weak and had a syncopal episode as he stood up leading to a fall where he fell backwards. leading to his ED presentation. He complains of chills and weakness ongoing for the past three months. He has had a poor oral intake ongoing for the past three months. He denies shortness of breath, chest pain, abdominal pain, parenthesis, sore throat or pain with swallowing. Past Med Surg Social Fam HX - Past Medical History Medical history: aortic aneurysm, arthritis, COPD, coronary artery disease, GERD , GI bleed, hyperlipidemia, hypertension, kidney stones, myocardial infarction, TIA, other Additional medical history: CAD. HTN. HLD. GERD. Ureteral stone Psychiatric history: anxiety, depression - Past Surgical History Surgical History: angioplasty/stent, appendectomy, herniorrhaphy, hip replacement, orthopedic, other, sinus surgery, other Additional surgical history: esophagus and stomach sx - Social History Smoking Status: Never smoker Smokeless Tobacco Status: No Alcohol use: none Drug use: none - Family History Father Living Status: Hx Family Cardiac Disorders: No Hx Family Respiratory Disorders: Yes Hx Family Cancer: Yes Hx Family GI Disorders: No Hx Family Endocrine Disorder: No Hx Family Neuromuscular Disorders: No Hx Family Neurologic Disorders: No Hx Family HEENT Disorders: No Hx Family Autoimmune Disorders: No Medications and Allergies Isosorbide MONOnitrate [Isosorbide Mononitrate] 30 mg PO DAILY 06/09/15 [History ] Simvastatin [Zocor] 10 mg PO DAILY 02/05/16 [History] ALPRAZolam [Xanax 0.25 MG Tablet] 0.25 mg PO TID 06/11/17 [History] Nitroglycerin [Nitrostat] 0.4 mg SL Q5M PRN 06/11/17 [History] Omeprazole [PriLOSEC] 40 mg PO DAILY 06/11/17 [History] Clopidogrel [Plavix] 75 mg PO DAILY 02/26/18 [History] Finasteride [Proscar] 5 mg PO DAILY 02/26/18 [History] Lisinopril [Zestril] 40 mg PO DAILY 02/26/18 [History] Metoclopramide HCl 10 mg PO BID 02/26/18 [History] Ranitidine HCl [Zantac] 300 mg PO DAILY 02/26/18 [History] Tamsulosin [Flomax] 0.4 mg PO DAILY 02/26/18 [History] Tizanidine HCl 4 mg PO Q12H PRN 02/26/18 [History] Sucralfate [Carafate] 1 gm PO TIDAC #90 udc 02/28/18 [Rx] Gabapentin [Neurontin] 100 mg PO TID 03/25/18 [History] Albuterol Sulfate [Ventolin Hfa] 2 puff IH Q6H PRN 05/09/18 [History] Ciprofloxacin HCl [Cipro] 500 mg PO BID 05/09/18 [History] Ferrous Sulfate [Iron] 325 mg PO DAILY 05/09/18 [History] Fluticasone/Salmeterol [Advair 250-50 Diskus] 1 each IH BID 05/09/18 [History] HYDROcodone/Acet 5/325 mg [[place] 5-325 mg] 1 tab PO Q6H PRN 3 Days #10 tab 05/09 [Rx] Nabumetone [Relafen] 500 mg PO BID 05/18/18 [History] 3 Allergy/AdvReac Type Severity Reaction Status Date / Time Iodinated Contrast- Oral and Allergy Anaphylaxis Verified 03/25/18 14:46 IV Dye All Systems: The remainder of the systems were reviewed and are negative - Constitutional Constitutional: chills, other (lack of energy), no fever(s) - Cardiovascular Cardiovascular: no chest pain, no palpitations - Respiratory Respiratory: dyspnea on exertion, no cough - Gastrointestinal Gastrointestinal: hematemesis, melena, no abdominal pain, no diarrhea - Genitourinary Genitourinary: no hematuria - Musculoskeletal Musculoskeletal: other (pain at the inferior border of the left scapula) - Neurological Neurological: syncope (1 episode today), no confusion, no numbness, no paresthesias - Psychiatric Psychiatric: anxiety - Hematologic/Lymphatic Hematologic/Lymphatic: other (bright red bleeding per emesis ) Physical Examination Vital Signs: Vital Signs, Last 4 Hours Temp Pulse Resp BP 05/18/18 13:46 97.5 F L 18 139/78 05/18/18 13:35 97.5 F L 71 18 139/78 05/18/18 13:20 97.7 F 75 18 145/66 General appearance: no acute distress, alert Eyes: nonicteric ENT: oropharynx moist Auscultation: bilateral: clear Cardiovascular: regular rate and rhythm Gastrointestinal: normoactive bowel sounds, soft, non-tender Integumentary: other (abrasion on the right superior scapular border) Extremities: no cyanosis, no edema normal mental status mood appropriate, affect normal Results - Laboratory Findings CBC and BMP: 05/18/18 10:34 05/18/18 10:34 PT/INR, D-dimer PT 12.0 Seconds (9.4-12.1) 05/18/18 10:34 Abnormal lab findings: Abnormal lab results RBC 2.69 M/mcL (4.19-5.50) L 05/18/18 10:34 Hgb 7.2 g/dL (12.9-16.9) L D 05/18/18 10:34 Hct 23.0 % (37.5-50.1) L 05/18/18 10:34 MCH 26.8 pg (28.0-33.3) L 05/18/18 10:34 MCHC 31.3 g/dL (31.6-35.5) L 05/18/18 10:34 RDW 15.9 % (11.5-14.5) H 05/18/18 10:34 Nucleated RBCs/100 WBC 1.4 /100 WBC (0) H 05/18/18 10:34 Chloride 117 mEq/L (98-107) H 05/18/18 10:34 Carbon Dioxide 17 mEq/L (23-29) L 05/18/18 10:34 BUN 75 mg/dL (8-23) H 05/18/18 10:34 BUN/Creatinine Ratio 88 (6-26) H 05/18/18 10:34 Glucose 197 mg/dL (70-105) H 05/18/18 10:34 Calculated Osmolality 320 (280-300) H 05/18/18 10:34 Calcium 7.9 mg/dL (8.6-10.3) L 05/18/18 10:34 Stool Occult Bld Scrn Positive (Negative) A 05/18/18 Unknown - Diagnostic Findings Additional studies: CT Head: no acute findings Chest x-ray: Calcified granuloma in upper lung lobe and lymph nodes. CT abdomen and pelvis: 1. Nonobstructing bilateral nephrolithiasis 2. Bilateral adrenal adenomas 3. Cholelithiasis 4. Hiatal hernia 5. Colonic diverticulosis 6. Possible rectal stool impaction 7. Stable 3.8 cm abdominal aortic aneurysm and bilateral iliac artery aneurysms <Bladimir Cat S - Last Filed: 05/18/18 22:50> Date of Encounter: 05/18/18 History of Present Illness HPI: Mr. Almazan is a 77 year old male All Systems: The remainder of the systems were reviewed and are negative Physical Examination Vital Signs: Vital Signs, Last 4 Hours Temp Pulse Resp BP Pulse Ox 05/18/18 21:00 69 17 152/68 100 05/18/18 20:00 68 20 141/74 100 05/18/18 19:38 79 05/18/18 19:15 98.8 F 05/18/18 19:00 78 159/57 Results - Laboratory Findings CBC and BMP: 05/18/18 20:22 05/18/18 10:34 PT/INR, D-dimer PT 12.0 Seconds (9.4-12.1) 05/18/18 10:34 Abnormal lab findings: Abnormal lab results RBC 2.69 M/mcL (4.19-5.50) L 05/18/18 10:34 Hgb 8.8 g/dL (12.9-16.9) L D 05/18/18 20:22 Hct 26.7 % (37.5-50.1) L 05/18/18 20:22 MCH 26.8 pg (28.0-33.3) L 05/18/18 10:34 MCHC 31.3 g/dL (31.6-35.5) L 05/18/18 10:34 RDW 15.9 % (11.5-14.5) H 05/18/18 10:34 Nucleated RBCs/100 WBC 1.4 /100 WBC (0) H 05/18/18 10:34 Chloride 117 mEq/L (98-107) H 05/18/18 10:34 Carbon Dioxide 17 mEq/L (23-29) L 05/18/18 10:34 BUN 75 mg/dL (8-23) H 05/18/18 10:34 BUN/Creatinine Ratio 88 (6-26) H 05/18/18 10:34 Glucose 197 mg/dL (70-105) H 05/18/18 10:34 POC Glucose 153 mg/dL (70-99) H 05/18/18 14:33 Calculated Osmolality 320 (280-300) H 05/18/18 10:34 Calcium 7.9 mg/dL (8.6-10.3) L 05/18/18 10:34 Stool Occult Bld Scrn Positive (Negative) A 05/18/18 Unknown - Attending Attestation I saw and evaluated this patient and my medical decision-making was reviewed with the Resident Physician. I agree with the documented findings, disposition and treatment plan as described except to the extent set forth below. We independently had [id number] contact with the patient. Patient seen and examined at bedside Labs, radiology, chart personally reviewed. Management was reviewed during multidisciplinary critical care rounds. FOURDRINIER TENDER: Patient is conscious oriented x 3 Pulm: He has acceptable oxygenation and ventilation no significant V/Q mismatch. Cards: Patient is hemodynamically stable no signs of acute coronary syndrome. FEN-GI: Had previous esophageal gastric surgery patient been recently endoscoped before which showed gastric ulcer and erosions. Patient is coming with GI bleed patient is on Plavix endoscopy which was done and showed multiple gastric erosion with ulcers and was cauterized and Epinephrine was given. Continue PPI drip Renal: Labs and output reviewed ID: Does not have any active infective issues Heme/Onc: Labs reviewed Endo: Glucose Monitored Integ/MSK: Skin Care per routine ICU Nursing Protocol to prevent ulcers. Lines: All lines examined without evidence of infection : Dispo: to keep him in the ICU CODE:Full Code
[2018-05-18] MEDS ORDERED: Propofol 500 MG/50 ML INFUS..BTL ONE (15:52)
--- NOTE | 2018-05-18 15:56 | Anesthesia Evaluation PreOp ---
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: TIA Other Medical History: Bleeding (GI BLEEDING, HEMATEMESIS X2 LAST NIGHT), GERD Anesthesia History: No Prior Anesthetic Complications, Past Anesthesia Alcohol Use: none Drug use: none Medications and Allergies Isosorbide MONOnitrate [Isosorbide Mononitrate] 30 mg PO DAILY 06/09/15 [History ] Simvastatin [Zocor] 10 mg PO DAILY 02/05/16 [History] ALPRAZolam [Xanax 0.25 MG Tablet] 0.25 mg PO TID 06/11/17 [History] Nitroglycerin [Nitrostat] 0.4 mg SL Q5M PRN 06/11/17 [History] Omeprazole [PriLOSEC] 40 mg PO DAILY 06/11/17 [History] Clopidogrel [Plavix] 75 mg PO DAILY 02/26/18 [History] Finasteride [Proscar] 5 mg PO DAILY 02/26/18 [History] Lisinopril [Zestril] 40 mg PO DAILY 02/26/18 [History] Metoclopramide HCl 10 mg PO BID 02/26/18 [History] Ranitidine HCl [Zantac] 300 mg PO DAILY 02/26/18 [History] Tamsulosin [Flomax] 0.4 mg PO DAILY 02/26/18 [History] Tizanidine HCl 4 mg PO Q12H PRN 02/26/18 [History] Sucralfate [Carafate] 1 gm PO TIDAC #90 udc 02/28/18 [Rx] Gabapentin [Neurontin] 100 mg PO TID 03/25/18 [History] Albuterol Sulfate [Ventolin Hfa] 2 puff IH Q6H PRN 05/09/18 [History] Ciprofloxacin HCl [Cipro] 500 mg PO BID 05/09/18 [History] Ferrous Sulfate [Iron] 325 mg PO DAILY 05/09/18 [History] Fluticasone/Salmeterol [Advair 250-50 Diskus] 1 each IH BID 05/09/18 [History] HYDROcodone/Acet 5/325 mg [[place] 5-325 mg] 1 tab PO Q6H PRN 3 Days #10 tab 05/09 [Rx] Nabumetone [Relafen] 500 mg PO BID 05/18/18 [History] 3 Allergy/AdvReac Type Severity Reaction Status Date / Time Iodinated Contrast- Oral and Allergy Anaphylaxis Verified 03/25/18 14:46 IV Dye - Meds/Allergy Pre-op Review Medications Reviewed: Yes Allergies Reviewed: Yes Anesthesia Results - Labs 05/18/18 10:34 05/18/18 10:34 Anesthesia Exam Vital Signs/O2 Sat/Glucose, Most Recent Temp Pulse Resp BP Pulse Ox 97.9 F 60 20 116/65 100 05/18/18 15:41 05/18/18 15:41 05/18/18 15:41 05/18/18 15:41 05/18/18 15:41 Blood Glucose* 153 Height: 1.73 M Weight: 60 KG NPO (# of Hours): >8 - HEENT Mallampati: I Teeth: Edentulous - FILAMENT MAKER LOC: Oriented (AW[place], ALERT) - Cardiac Rhythm: Regular - Pulmonary Breath Sounds: bilateral Clear Respiratory Effort: Symmetrical Anesthesia Assess/Plan ASA Score: 4, E Modified Gazelle Scale for Level of Consciousness: Cooperative, oriented, and tranquil Anesthetic Plan: General, MAC Monitoring Plan: Standard Monitors Recovery Plan: ICU Anes Supervising Prov Stmt: Patient informed and consented. Risks, benefits, and alternatives discussed. Patient wishes to proceed.
[2018-05-18] MEDS ORDERED: 0.9 % Sodium Chloride 1,000 ML ONE (15:59)
[2018-05-18] MEDS ORDERED: Ondansetron 4 MG/2 ML VIAL ONE (16:25)
[2018-05-18] MEDS ORDERED: Lidocaine -MPF 2% 2 ML VIAL ONE (16:39)
[2018-05-18] MEDS ORDERED: *HR* Succinylcholine 200 MG/10 ML VIAL IVP ONE (16:39)
[2018-05-18] MEDS ORDERED: *HR* PHENYLEPHRINE 1,000 MCG/10 ML SYRINGE IVP ONE (16:39)
[2018-05-18] MEDS ORDERED: *HR* EPINEPHrine 1 MG/10 ML SYRINGE INTRATRACH PRN (16:46)
[2018-05-18] MEDS ORDERED: Tetracaine/Benzocaine/Butamben 200MG/SPRAY (100SPY/BOT) MM ONE (16:46)
[2018-05-18] MEDS: Pantoprazole 40 MG in 0.9 % Sodium Chloride Mini Bag 100 ML IVC SCH ×2 (16:47→21:22)
[2018-05-18] MEDS ORDERED: Ondansetron 4 MG/2 ML VIAL IVP ONE (16:48)
[2018-05-18] MEDS ORDERED: *HR* LORazepam 2 MG/ML VIAL IVP PRN ×2 (18:08→23:35)
[2018-05-18] MEDS ORDERED: *HR* Metoprolol 5 MG/5 ML VIAL IVP PRN ×2 (20:12→23:35)
[2018-05-18 20:38] LABS: Hematocrit 26.7 % (37.5-50.1)
[2018-05-18 20:39] LABS: Hemoglobin 8.8 g/dL (12.9-16.9)
[2018-05-18] MEDS ORDERED: OXYCODONE Oral CONC 10 MG/0.5 ML ORAL.SYG SL PRN (21:30)
[2018-05-19] MEDS: Pantoprazole 40 MG in 0.9 % Sodium Chloride Mini Bag 100 ML IVC SCH ×5 (01:30→22:30)
[2018-05-19 04:01] LABS: Basophils # 0.1 K/mcL (0.0-0.2); Basophils % 0.6 %; Eosinophils % 0.1 %; Hematocrit 23.4 % (37.5-50.1); Hemoglobin 7.7 g/dL (12.9-16.9); Immature Granulocytes % 0.5 % (0-4); Lymphocytes # 2.2 K/mcL (0.6-4.6); Lymphocytes % 18.3 %; Mean Corpuscular HGB Conc 32.9 g/dL (31.6-35.5); Mean Corpuscular Hemoglobin 26.9 pg (28.0-33.3); Mean Corpuscular Volume 81.8 fL (83.0-100.0); Mean Platelet Volume 9.4 fL (9.4-12.4); Monocytes # 0.4 K/mcL (0.0-1.3); Monocytes % 2.9 %; Neutrophils # 9.5 K/mcL (1.6-8.9); Nucleated Red Blood Cells 0.4 /100 WBC (0); Platelet Count 186 K/mcL (140-400); Red Blood Count 2.86 M/mcL (4.19-5.50); Red Cell Distribution Width 16.4 % (11.5-14.5); Segmented Neutrophils % 77.6 %
[2018-05-19 04:09] LABS: INR 1.1; Prothrombin Time 12.8 Seconds (9.4-12.1)
[2018-05-19 04:22] LABS: Alanine Aminotransferase 25 Units/L (7-52); Albumin 2.5 g/dL (3.5-5.7); Albumin/Globulin Ratio 1.4 (1.1-2.2); Alkaline Phosphatase 31 Units/L (34-104); Aspartate Amino Transferase 10 Units/L (13-39); BUN/Creatinine Ratio 75 (6-26); Bilirubin,Direct 0.2 mg/dL (0.0-0.2); Bilirubin,Indirect 0.6 mg/dL (0.0-1.2); Bilirubin,Total 0.8 mg/dL (0.3-1.0); Blood Urea Nitrogen 54 mg/dL (8-23); Calcium 7.4 mg/dL (8.6-10.3); Carbon Dioxide 16 mEq/L (23-29); Chloride 123 mEq/L (98-107); Globulin 1.8 g/dL (2.4-3.5); Glucose 140 mg/dL (70-105); Magnesium 1.9 mg/dL (1.6-2.6); Osmolality,Calculated 317 (280-300); Potassium 3.5 mEq/L (3.5-5.1); Sodium 145 mEq/L (136-145); Total Protein 4.3 g/dL (6.4-8.9); eGFR For Non-African Americans > 60 (> 60)
--- NOTE | 2018-05-19 06:36 | Pulmonology Progress Note ---
<Malena Encinas - Last Filed: 05/19/18 13:14> Date of Encounter: 05/19/18 Time of Encounter: 06:36 Assessment and Plan (1) GI bleed Current Visit: Yes Status: Acute He has history of chronic gastritis. On 02/26/18 he had an EGD for GI bleed and it showed Grade D esophagitis and on 02/27/18 he had a colonoscopy which showed diverticulosis and 5 mm non bleeding polyp which was resected. He had an EGD completed today which showed area of esophagitis with bleeding ulcer which was injected with epinephrine. No episodes of bleeding overnight. GI recommends stopping plavix given his history of bleeding. Continue IV protonix. Additionally, he has been on ciprofloxacin for the last two times he had episodes of GI bleed and given there is a small risk of bleeding with ciprofloxacin he should avoid the use of this medication. Qualifiers: Gastritis type: chronic gastritis Qualified Code(s): K29.51 - Unspecified chronic gastritis with bleeding (2) Anemia Current Visit: Yes Status: Acute He presented with hemoglobin of 7.2, his previous hemoglobin was 10.0. This morning his hemoglobin was 7.7 but had no episodes of new occult blood. The anemia is due to acute GI bleed. He has history of diverticulosis which likely contributes to slow bleed. Additionally he has gastritis. He presented in February and March for GI bleed and has had no resolution. He underwent endoscopy and there epinephrine was used at the ulcer site of distal esophagus. Continue to monitor. He is receiving 1 unit of blood and H&H will be repeated after the blood transfusion. Qualifiers: Other causes of anemia: acute posthemorrhagic Qualified Code(s): D62 - Acute posthemorrhagic anemia (3) Gastritis Current Visit: Yes Status: Acute He has history of gastritis and previously had an EGD for GI bleeds. He is on PPI and carafate at home for is chronic gastritis. He is status post EGD yesterday and had a site of bleeding ulcer, no current occult blood loss. Continue IV protonix. Start a clear liquid diet and advance as tolerated. Qualifiers: Gastritis type: other gastritis Gastritis bleeding: with bleeding Qualified Code(s): K29.61 - Other gastritis with bleeding (4) UTI (urinary tract infection) Current Visit: Yes Status: Suspected History of recurrent UTIs. Per patient he has had 4 UTIs in this year. He has been taking ciprofloxacin for them. He took the ciprofloxacin for 5 days prior to presentation. Urine culture pending. Also, the UTIs in the past have been resistant to ciprofloxacin. And he was resented started Nitrofuratoin prior to ciprofloxacin and the EMI was very high for the nitrofuratoin, which is not a good option for him either. Will start rocephin for him. Qualifiers: Urinary tract infection type: acute cystitis Hematuria presence: without hematuria Qualified Code(s): N30.00 - Acute cystitis without hematuria (5) Anxiety Current Visit: Yes Status: Acute History of anxiety and at home takes xanax 0.25 mg TID. He is now on ativan 0.5 mg Q8HR PRN. (6) HTN (hypertension) Current Visit: Yes Status: Acute History of hypertension and at home takes lisinopril and nitroglycerin. His systolic blood pressure has increased today and will consider starting home lisinopril. Qualifiers: Hypertension type: essential hypertension Qualified Code(s): I10 - Essential (primary) hypertension (7) Hyperlipidemia Current Visit: No Status: Chronic History of hyperlipidemia and at home takes zocor Holding his PO medications given acute GI bleed. Qualifiers: Hyperlipidemia type: unspecified Qualified Code(s): E78.5 - Hyperlipidemia , unspecified (8) Aneurysm Current Visit: No Status: Chronic History of 3.8 cm abdominal aortic aneurysm and bilateral iliac artery aneurysm. He will require repeat imaging in 1 year. (9) Myocardial infarction Current Visit: No Status: Chronic History of ME and 4 stents. His ME was 2001 and 2007. He is on home Plavix likely due to the stents. He should discontinue oral plavix due to his recurrent bleed. Spoke with him and his friend about the risk and benefits and they would like to discontinue it as well. Qualifiers: Myocardial infarction type: unspecified Involved coronary artery: unspecified coronary artery Qualified Code(s): I21.9 - Acute myocardial infarction, unspecified (10) COPD (chronic obstructive pulmonary disease) Current Visit: No Status: Chronic History of COPD and on advair at home. He is comfortable on room air and has no evidence of inhaler requirement at this time. Added home advair. Qualifiers: COPD type: chronic bronchitis Chronic bronchitis type: unspecified Qualified Code(s): J42 - Unspecified chronic bronchitis (11) DVT prophylaxis Current Visit: Yes Status: Acute Continue EPCDs. Not a candidate for anticoagulation given his current GI bleed Objective PUL Vital signs: Last Vital Signs Temp 99.0 F 05/19/18 04:27 Pulse 63 05/19/18 06:07 Resp 22 05/19/18 06:07 BP 138/50 05/19/18 06:07 Pulse Ox 95 05/19/18 06:07 Results - Laboratory Findings CBC and BMP: 05/19/18 03:45 05/19/18 03:45 PT/INR, D-dimer PT 12.8 Seconds (9.4-12.1) H 05/19/18 03:45 Abnormal lab findings: Abnormal lab results WBC 12.3 K/mcL (4.3-11.1) H 05/19/18 03:45 RBC 2.86 M/mcL (4.19-5.50) L 05/19/18 03:45 Hgb 7.7 g/dL (12.9-16.9) L 05/19/18 03:45 Hct 23.4 % (37.5-50.1) L 05/19/18 03:45 MCV 81.8 fL (83.0-100.0) L 05/19/18 03:45 MCH 26.9 pg (28.0-33.3) L 05/19/18 03:45 RDW 16.4 % (11.5-14.5) H 05/19/18 03:45 Neutrophils # 9.5 K/mcL (1.6-8.9) H 05/19/18 03:45 Nucleated RBCs/100 WBC 0.4 /100 WBC (0) H 05/19/18 03:45 PT 12.8 Seconds (9.4-12.1) H 05/19/18 03:45 Chloride 123 mEq/L (98-107) H 05/19/18 03:45 Carbon Dioxide 16 mEq/L (23-29) L 05/19/18 03:45 BUN 54 mg/dL (8-23) H 05/19/18 03:45 BUN/Creatinine Ratio 75 (6-26) H 05/19/18 03:45 Glucose 140 mg/dL (70-105) H 05/19/18 03:45 POC Glucose 153 mg/dL (70-99) H 05/18/18 14:33 Calculated Osmolality 317 (280-300) H 05/19/18 03:45 Calcium 7.4 mg/dL (8.6-10.3) L 05/19/18 03:45 AST 10 Units/L (13-39) L 05/19/18 03:45 Alkaline Phosphatase 31 Units/L (34-104) L 05/19/18 03:45 Serum Total Protein 4.3 g/dL (6.4-8.9) L 05/19/18 03:45 Albumin 2.5 g/dL (3.5-5.7) L 05/19/18 03:45 Globulin 1.8 g/dL (2.4-3.5) L 05/19/18 03:45 Stool Occult Bld Scrn Positive (Negative) A 05/18/18 Unknown - Clinical Findings Intake & Output: Intake & Output 05/18/18 05/18/18 05/19/18 15:59 23:59 07:59 Intake Total 1350 / 1350 465 / 465 100 / 100 Output Total 325 / 325 250 / 250 Balance 1350 / 1350 140 / 140 -150 / -150 Weight 59.9 kg 60.8 kg Consult Discharge Plan - Plan Referrals: Syeda Dubose, STEEP TENDER [Primary Care Provider] - <Bladimir Cat S - Last Filed: 05/19/18 20:36> Date of Encounter: 05/19/18 Objective PUL Vital signs: Last Vital Signs Temp 98.6 F 05/19/18 19:46 Pulse 65 05/19/18 19:46 Resp 15 05/19/18 19:46 BP 142/74 05/19/18 19:46 Pulse Ox 93 05/19/18 19:46 Results - Laboratory Findings CBC and BMP: 05/19/18 17:00 05/19/18 03:45 PT/INR, D-dimer PT 12.8 Seconds (9.4-12.1) H 05/19/18 03:45 Abnormal lab findings: Abnormal lab results WBC 12.3 K/mcL (4.3-11.1) H 05/19/18 03:45 RBC 2.86 M/mcL (4.19-5.50) L 05/19/18 03:45 Hgb 9.6 g/dL (12.9-16.9) L D 05/19/18 17:00 Hct 28.9 % (37.5-50.1) L 05/19/18 17:00 MCV 81.8 fL (83.0-100.0) L 05/19/18 03:45 MCH 26.9 pg (28.0-33.3) L 05/19/18 03:45 RDW 16.4 % (11.5-14.5) H 05/19/18 03:45 Neutrophils # 9.5 K/mcL (1.6-8.9) H 05/19/18 03:45 Nucleated RBCs/100 WBC 0.4 /100 WBC (0) H 05/19/18 03:45 PT 12.8 Seconds (9.4-12.1) H 05/19/18 03:45 Chloride 123 mEq/L (98-107) H 05/19/18 03:45 Carbon Dioxide 16 mEq/L (23-29) L 05/19/18 03:45 BUN 54 mg/dL (8-23) H 05/19/18 03:45 BUN/Creatinine Ratio 75 (6-26) H 05/19/18 03:45 Glucose 140 mg/dL (70-105) H 05/19/18 03:45 POC Glucose 153 mg/dL (70-99) H 05/18/18 14:33 Calculated Osmolality 317 (280-300) H 05/19/18 03:45 Calcium 7.4 mg/dL (8.6-10.3) L 05/19/18 03:45 AST 10 Units/L (13-39) L 05/19/18 03:45 Alkaline Phosphatase 31 Units/L (34-104) L 05/19/18 03:45 Serum Total Protein 4.3 g/dL (6.4-8.9) L 05/19/18 03:45 Albumin 2.5 g/dL (3.5-5.7) L 05/19/18 03:45 Globulin 1.8 g/dL (2.4-3.5) L 05/19/18 03:45 Urine Ketones 15 mg/dL (Negative) H 05/19/18 11:10 Ur Leukocyte Esterase Small (Negative) H 05/19/18 11:10 Urine Microscopic WBC 5-15 per hpf (0-3) H 05/19/18 11:10 Ur Squamous Epith Cells Moderate per lpf (None-Few) H 05/19/18 11:10 Ur Culture Indicated? YES (NO) A 05/19/18 11:10 Stool Occult Bld Scrn Positive (Negative) A 05/18/18 Unknown - Clinical Findings Intake & Output: Intake & Output 05/19/18 05/19/18 05/19/18 07:59 15:59 23:59 Intake Total 100 / 100 1979 / 1979 100 / 100 Output Total 250 / 250 500 / 500 100 / 100 Balance -150 / -150 1480 / 1480 0 / 0 Weight 60.8 kg 60.6 kg - Attending Attestation - Attending Attestation I saw and evaluated this patient and my medical decision-making was reviewed with the Resident Physician. I agree with the documented findings, disposition and treatment plan as described except to the extent set forth below. We independently had [id number] contact with the patient. Patient seen and examined at bedside Labs, radiology, chart personally reviewed. Management was reviewed during multidisciplinary critical care rounds. 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 Cards: Patient is hemodynamically stable no signs of acute coronary syndrome. FEN-GI: Had previous esophageal gastric surgery patient been recently endoscoped before which showed gastric ulcer and erosions. Patient is coming with GI bleed patient is on Plavix endoscopy which was done and showed multiple gastric erosion with ulcers and was cauterized and Epinephrine was given. Continue PPI drip can change to IV BID tomorrow . Patient Plavix should be discontinued because of continued bleeding . Renal: Labs and output reviewed ID: Does not have any active infective issues Heme/Onc: Labs reviewed Endo: Glucose Monitored Integ/MSK: Skin Care per routine ICU Nursing Protocol to prevent ulcers. Lines: All lines examined without evidence of infection : Dispo: to keep him in the ICU CODE:Full Code
[2018-05-19] MEDS ORDERED: Ringers Solution, Lactated 500 ML IVC ONE (08:15)
[2018-05-19 09:55] LABS: Carcinoembryonic Antigen 4.6 ng/mL (Less than 5.0)
--- NOTE | 2018-05-19 10:36 | Gastroenterology Progress Note ---
Date of Encounter: 05/19/18 Time of Encounter: 10:34 - Time Spent With Patient Total time spent is greater than 50% in coordination of care (as documented) at patient's floor/unit and/or counseling patient: - Subjective Interval history: Mr Almazan presented with melena and hemetemesis with 3 gm drop in hemoglobin. He underwent EGD yesterday with control of bleeding via injection of esophageal ulcer with visible vessel The stomach had quite a bit of blood in it at the time of EGD. - Constitutional Vitals: Temp Pulse Resp BP Pulse Ox 97.8 F 63 20 143/55 95 05/19/18 08:00 05/19/18 08:00 05/19/18 08:00 05/19/18 08:00 05/19/18 08:00 Results - Labs CBC & Chem 7: 05/19/18 03:45 05/19/18 03:45 Labs: Last Result Calcium 7.4 mg/dL (8.6-10.3) L 05/19/18 03:45 Entire Visit Hgb 7.7 g/dL (12.9-16.9) L 05/19/18 03:45 Hct 23.4 % (37.5-50.1) L 05/19/18 03:45 PT 12.8 Seconds (9.4-12.1) H 05/19/18 03:45 Total Bilirubin 0.8 mg/dL (0.3-1.0) 05/19/18 03:45 AST 10 Units/L (13-39) L 05/19/18 03:45 ALT 25 Units/L (7-52) 05/19/18 03:45 Carcinoembryonic Ag 4.6 ng/mL (Less than 5.0) 05/19/18 03:45 - ABG ABG results: PT/INR, D-dimer PT 12.8 Seconds (9.4-12.1) H 05/19/18 03:45 Consult Discharge Plan - Plan Referrals: Syeda Dubose, GRAPHIC DESIGNER [Primary Care Provider] -
[2018-05-19] MEDS: OXYCODONE Oral CONC 10 MG/0.5 ML ORAL.SYG SL PRN ×3 (10:55→23:30)
[2018-05-19 11:19] LABS: Bilirubin,Urine Negative (Negative); Blood,Urine Negative (Negative); Clarity,Urine Clear (Clear); Color,Urine Yellow (Yellow); Glucose,Urine (UA) Normal (Normal); Ketones,Urine 15 mg/dL (Negative); Leukocyte Esterase,Urine Small (Negative); Nitrite,Urine Negative (Negative); Protein,Urine Trace mg/dL (Neg-Trace); Specific Gravity,Urine 1.023 (1.010-1.025); Urobilinogen,Urine Normal (Normal)
[2018-05-19 11:22] LABS: Bacteria,Urine None Seen per hpf (None-Few); Hyaline Casts,Urine None Seen per lpf (None-Few); RBC,Urine 0-3 per hpf (0-3); Squamous Epithelial Cell,Urine Moderate per lpf (None-Few)
[2018-05-19] MEDS ORDERED: cefTRIAXone 1,000 MG in Water for inj. (sterile) 20 ML 10 ML IVP SCH (13:00)
[2018-05-19] MEDS ORDERED: *HR* LORazepam 2 MG/ML VIAL IVP PRN (17:35)
[2018-05-19] MEDS ORDERED: Naloxone 0.4 MG/ML INJ IVP PRN (17:35)
[2018-05-19 17:40] LABS: Hematocrit 28.9 % (37.5-50.1)
[2018-05-19] MEDS ORDERED: Lisinopril 20 MG TABLET PO SCH (18:00)
[2018-05-19 18:08] LABS: Hemoglobin 9.6 g/dL (12.9-16.9)
[2018-05-19] MEDS: Lisinopril 20 MG TABLET PO SCH (18:50)
[2018-05-19] MEDS ORDERED: Budesonide/Formoterol 80/4.5 MDI IH SCH ×2 (22:00)
[2018-05-20] MEDS ORDERED: Ondansetron 4 MG/2 ML VIAL IVP ONE (00:04)
[2018-05-20] MEDS: Pantoprazole 40 MG in 0.9 % Sodium Chloride Mini Bag 100 ML IVC SCH ×2 (04:45→08:27)
[2018-05-20 05:31] LABS: Basophils % 0.4 %; Eosinophils # 0.2 K/mcL (0.0-0.6); Eosinophils % 2.5 %; Hematocrit 28.3 % (37.5-50.1); Hemoglobin 9.3 g/dL (12.9-16.9); Immature Granulocytes % 0.4 % (0-4); Lymphocytes # 2.9 K/mcL (0.6-4.6); Lymphocytes % 31.8 %; Mean Corpuscular HGB Conc 32.9 g/dL (31.6-35.5); Mean Corpuscular Hemoglobin 27.9 pg (28.0-33.3); Mean Platelet Volume 9.5 fL (9.4-12.4); Monocytes # 0.4 K/mcL (0.0-1.3); Monocytes % 4.1 %; Neutrophils # 5.6 K/mcL (1.6-8.9); Nucleated Red Blood Cells 0.2 /100 WBC (0); Platelet Count 163 K/mcL (140-400); Red Blood Count 3.33 M/mcL (4.19-5.50); Red Cell Distribution Width 16.6 % (11.5-14.5); Segmented Neutrophils % 60.8 %
[2018-05-20] MEDS: cefTRIAXone 1,000 MG in Water for inj. (sterile) 20 ML 10 ML IVP SCH (08:27)
--- NOTE | 2018-05-20 08:29 | Internal Med Progress Note ---
<DominicDenilson Kimberly - Last Filed: 05/20/18 11:46> Hospitalist Progress Note - Encounter Date of Encounter: 05/20/18 Time of Encounter: 08:26 - Subjective Interval History: 77-year-old male here with GI bleed s/p EGD with finding of a distal esophageal ulcer injected with epinephrine and gastric polypoid lesion. He has just transferred out of the ICU. Received 4 units of RBCs since admission. Today he reports that he is feeling generalized weakness and fatigue. He reports some nausea and hematemesis last night and still having melena. He states that he still having some lower crampy abdominal pain, but denies epigastric pain. He is starting to attempt a clear liquid diet. Denies fevers, chills, chest pain, dyspnea, cough, diarrhea, constipation, dysuria, or lower extremity edema. - Exam Vitals: Temp Pulse Resp BP Pulse Ox 98.6 F 62 16 150/63 99 05/20/18 07:07 05/20/18 07:07 05/20/18 07:07 05/20/18 07:07 05/20/18 07:07 Exam: GEN: No acute distress, A&O3 HEAD: Atraumatic, normocephalic EYES: Pupils symmetric, sclera white, conjunctiva pink HEART: RRR, normal S1 and S2, no murmurs LUNGS: Diminished but clear, no wheezes, rhonchi, or crackles ABD: Soft, nondistended, bowel sounds present, tenderness in the lower abdomen bilaterally EXT: No edema noted, pulses 2/4 NEURO: No focal deficits, cooperative with exam - Assessment and Plan (1) Upper GI bleed Current Visit: Yes Status: Acute Assessment and Plan: EGD on 05/18/18 shows a distal esophageal ulcer was injected with epinephrine, diffuse gastritis, and gastric circumferential polypoid lesion GI planning repeat EGD after Plavix washout Reports hematemesis 1 last night Hemoglobin stable this morning at 9.3 - total 4U RBCs simce admission Continue IV Protonix BID and Carafate Clear liquid diet and advance as tolerated Monitor CBC and transfuse as needed (Hgb <8) Add zofran and phenergan for nausea (2) Acute blood loss anemia Current Visit: Yes Status: Acute Assessment and Plan: as above - secondary to esophageal ulcer (3) Urinary tract infection Current Visit: Yes Status: Acute Assessment and Plan: Urine culture growing gram-negative rods and yeast Urine culture 05/09/18 with Escherichia coli and Patricia - Resistance to fluoroquinolones Continue Rocephin for now (4) COPD (chronic obstructive pulmonary disease) Current Visit: Yes Status: Chronic Assessment and Plan: Not in acute exacerbation Not requiring supplemental oxygen Continue Symbicort (5) CAD (coronary artery disease) Current Visit: Yes Status: Chronic Assessment and Plan: s/p PCI x4 - chronically on Plavix, has been held with acute GI bleed Plan on discontinuation of Plavix (6) Hypertension Current Visit: Yes Status: Chronic Assessment and Plan: Home Lisinopril dose was just restarted with increasing BP - will continue to monitor and if remaining elevated will add extra coverage (7) Protein calorie malnutrition Current Visit: Yes Status: Acute Assessment and Plan: Will check prealbumin in the morning DVT Prophylaxis: EPCDs - Summary of Assessment and Plan Summary of Assessment and Plan: Patient with GI bleed awaiting Plavix washout and repeat EGD per GI - Time Spent with Patient Total time spent is greater than 50% in coordination of care (as documented) at patient's floor/unit and/or counseling patient: Internal Medicine: Result - Labs CBC & Chem 7: 05/20/18 05:05 05/19/18 03:45 Labs: Short CBC 05/19/18 05/20/18 Range/Units 17:00 05:05 WBC 9.2 (4.3-11.1) K/mcL Hgb 9.6 L D 9.3 L (12.9-16.9) g/dL Hct 28.9 L 28.3 L (37.5-50.1) % Plt Count 163 (140-400) K/mcL Neutrophils # 5.6 (1.6-8.9) K/mcL BMP 05/19/18 03:45 Sodium 145 Potassium 3.5 Chloride 123 H Carbon Dioxide 16 L BUN 54 H Creatinine 0.72 Glucose 140 H Calcium 7.4 L Liver Function 05/19/18 Range/Units 03:45 Total Bilirubin 0.8 (0.3-1.0) mg/dL Direct Bilirubin 0.2 (0.0-0.2) mg/dL AST 10 L (13-39) Units/L ALT 25 (7-52) Units/L Alkaline Phosphatase 31 L (34-104) Units/L Albumin 2.5 L (3.5-5.7) g/dL Urine 05/19/18 Range/Units 11:10 Urine Color Yellow (Yellow) Urine Clarity Clear (Clear) Urine pH 6.0 (5.0-8.0) pH Units Ur Specific [place] 1.023 (1.010-1.025) Urine Protein Trace (Neg-Trace) mg/dL Urine Glucose (UA) Normal (Normal) mg/dL - ABG Interpretation ABG results: PT/INR, D-dimer PT 12.8 Seconds (9.4-12.1) H 05/19/18 03:45 Consult Discharge Plan - Plan Referrals: Syeda Dubose, MR TEACHER [Primary Care Provider] - <Karol Drummond - Last Filed: 05/20/18 13:01> Hospitalist Progress Note - Encounter Date of Encounter: 05/20/18 - Exam Vitals: Temp Pulse Resp BP Pulse Ox 98.4 F 66 16 147/81 99 05/20/18 11:06 05/20/18 11:06 05/20/18 11:06 05/20/18 11:06 05/20/18 11:06 - Time Spent with Patient Total time spent is greater than 50% in coordination of care (as documented) at patient's floor/unit and/or counseling patient: Internal Medicine: Result - Labs CBC & Chem 7: 05/20/18 05:05 05/19/18 03:45 Labs: Short CBC 05/19/18 05/20/18 Range/Units 17:00 05:05 WBC 9.2 (4.3-11.1) K/mcL Hgb 9.6 L D 9.3 L (12.9-16.9) g/dL Hct 28.9 L 28.3 L (37.5-50.1) % Plt Count 163 (140-400) K/mcL Neutrophils # 5.6 (1.6-8.9) K/mcL - ABG Interpretation ABG results: PT/INR, D-dimer PT 12.8 Seconds (9.4-12.1) H 05/19/18 03:45 - Attending Attestation I examined this patient and my medical decision-making was reviewed with the Resident Physician Dr. Alfaro. I agree with the documented findings, disposition and treatment plan as described except to the extent set forth below. Mr. Almazan is a 77 year old male with past medical history of aortic aneurysm , COPD, CAD, GERD, GI bleed, hyperlipidemia, HTN, DC, TIA and kidney stones presented to the ED for weakness and syncopal episode. Pt was admitted to ICU initially and started him on Protonix gtt. He was evaluated by GI and did EGD on 05/18/18 which showed distal esophageal ulcer was injected with epinephrine, diffuse gastritis, and gastric circumferential polypoid lesion. Pt was transferred to [facility] for further care. He is alert, awake and O x 3 . States he is feeling little weak and lethargic today. Had one episode of hematemsis last night Gen: A, A, O x 3 Abd: Soft, NT, B a/p 1. Acute upper GI bleed s/p EGD showed distal esophageal ulcer was injected with epinephrine, diffuse gastritis, and gastric circumferential polypoid lesion changed to Protonix 40mg IV BID cont home Carafate dose Cont holding ASA and Plavix EGD in 2 days H/H Q12h <Denilson Alfaro - Last Filed: 05/20/18 11:46> (3) Urinary tract infection Qualifiers: Urinary tract infection type: site unspecified Hematuria presence: without hematuria Qualified Code(s): N39.0 - Urinary tract infection, site not specified (4) COPD (chronic obstructive pulmonary disease) Qualifiers: COPD type: chronic bronchitis Chronic bronchitis type: unspecified Qualified Code(s): J42 - Unspecified chronic bronchitis (5) CAD (coronary artery disease) Qualifiers: Coronary Disease-Associated Artery/Lesion type: lummi artery [place] vs. transplanted heart: lummi heart Associated angina: without angina Qualified Code(s): I25.10 - Atherosclerotic heart disease of [place] coronary artery without angina pectoris (6) Hypertension Qualifiers: Hypertension type: essential hypertension Qualified Code(s): I10 - Essential (primary) hypertension (7) Protein calorie malnutrition Qualifiers: Protein-calorie malnutrition severity: unspecified severity Qualified Code(s) : E46 - Unspecified protein-calorie malnutrition
[2018-05-20] MEDS ORDERED: *HR* Promethazine 25 MG/ML VIAL IVP PRN (08:50)
[2018-05-20] MEDS: Ondansetron ODT 4 MG TAB.RAPDIS SL PRN (09:50)
[2018-05-20] MEDS: Lisinopril 20 MG TABLET PO SCH (11:58)
[2018-05-20] MEDS: OXYCODONE Oral CONC 10 MG/0.5 ML ORAL.SYG SL PRN (14:15)
[2018-05-20 17:39] LABS: Hematocrit 26.8 % (37.5-50.1); Hemoglobin 8.9 g/dL (12.9-16.9)
[2018-05-20] MEDS: Pantoprazole 40 MG VIAL IVP SCH (18:37)
[2018-05-21] MEDS: Pantoprazole 40 MG VIAL IVP SCH ×2 (04:55→17:09)
[2018-05-21 05:34] LABS: Basophils % 0.4 %; Eosinophils # 0.3 K/mcL (0.0-0.6); Eosinophils % 3.2 %; Hematocrit 26.3 % (37.5-50.1); Hemoglobin 8.7 g/dL (12.9-16.9); Immature Granulocytes % 0.7 % (0-4); Lymphocytes # 1.8 K/mcL (0.6-4.6); Lymphocytes % 21.7 %; Mean Corpuscular HGB Conc 33.1 g/dL (31.6-35.5); Mean Corpuscular Hemoglobin 28.2 pg (28.0-33.3); Mean Corpuscular Volume 85.4 fL (83.0-100.0); Mean Platelet Volume 9.8 fL (9.4-12.4); Monocytes # 0.4 K/mcL (0.0-1.3); Monocytes % 5.3 %; Neutrophils # 5.8 K/mcL (1.6-8.9); Platelet Count 172 K/mcL (140-400); Red Blood Count 3.08 M/mcL (4.19-5.50); Red Cell Distribution Width 16.7 % (11.5-14.5); Segmented Neutrophils % 68.7 %
[2018-05-21 05:56] LABS: BUN/Creatinine Ratio 34 (6-26); Blood Urea Nitrogen 21 mg/dL (8-23); Calcium 7.6 mg/dL (8.6-10.3); Carbon Dioxide 25 mEq/L (23-29); Chloride 111 mEq/L (98-107); Glucose 122 mg/dL (70-105); Osmolality,Calculated 292 (280-300); Potassium 3.4 mEq/L (3.5-5.1); Sodium 139 mEq/L (136-145); eGFR For Non-African Americans > 60 (> 60)
[2018-05-21] MEDS: Ondansetron ODT 4 MG TAB.RAPDIS SL PRN (07:49)
[2018-05-21] MEDS: cefTRIAXone 1,000 MG in Water for inj. (sterile) 20 ML 10 ML IVP SCH (07:50)
[2018-05-21] MEDS: Lisinopril 20 MG TABLET PO SCH (08:00)
--- NOTE | 2018-05-21 08:49 | Internal Med Progress Note ---
<Carlos Meneses S - Last Filed: 05/21/18 08:46> Hospitalist Progress Note - Encounter Date of Encounter: 05/21/18 Time of Encounter: 08:45 - Subjective Interval History: Pt is seen at the bedside. 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 The pt states that he came to the hospital after feeling very weak and having multiple episodes of hemetemesis assoc with abdmominal pain. He was transferred to ICU on admission and go 4U of pRBC total. He has been on the floor since yesterday. The pt has no complaints of chest pain or SOB this morning. He has mild belly pain when he tries to sit up, denies epigastric pain. He is tolerating a clear liquid diet and primary team will talk with GI to see plans to advance diet. -he denies dyspnea, cough, dysuria, edema Fluids - none Electrolytes - potassium 3.4, replaced Nutrition - CLD DVT prohylaixs - SCD GI prophylaxis - IVP protonix 40mg BID - Exam Vitals: Temp Pulse Resp BP Pulse Ox 99.1 F 66 16 143/62 97 05/21/18 06:43 05/21/18 06:43 05/21/18 06:43 05/21/18 06:43 05/21/18 06:43 Exam: GEN: No acute distress, A&O3 HEAD: Atraumatic, normocephalic HEART: RRR, normal S1 and S2,no MRG LUNGS: decreased breath sounds B/L, no wheezes, rhonchi, or crackles ABD: Soft, nondistended, TTP lower abd with deep palpation, no rebound or guarding EXT: no edema NEURO: No focal deficits - Assessment and Plan (1) GI bleed Current Visit: Yes Status: Acute Assessment and Plan: Pt admitted with hemetemesis and abdominal pain Hemoglobin at admission: 7.2 Hemoglobin today: 8.7, trending down from 9.3 ----> 8.9 yesterday EGD on 05/18/18 - distal esophageal ulcer -injected with epinephrine -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 FOBT (+) -CEA <4.6 Plan: -continue to soft diet, as per GI -GI to rescope on monday or -check H&H in AM -transfuse if hgb <8 -Zofran and phenergan prn nausea -GI to repeat egd after plavix held for appropriate amount of time -continue protonix 40mg ivp -continue carafate (2) Hypertension Current Visit: No Status: Chronic Assessment and Plan: BP today 143/62 -adequately controlled -pt is on Zestril 40mg PO daily -continue home medications (3) CAD (coronary artery disease) Current Visit: No Status: Chronic Assessment and Plan: Pt has hx of CAD -PCI x 4 -he is on Plavix 75mg PO daily, which has since been held 2/ to acute GIB -pt has a HASBLED score of 3, pt is a high risk pt and is at risk for major bleeding again Plan: -benefits do not outweigh the adverse effects of medication usage -disconitnue Plavix -Continuept with Lisinopril 40mg, Zocor 10mg, Isosorbide 30mg (4) Urinary tract infection Current Visit: Yes Status: Acute Assessment and Plan: Pt has urine cx growing gram negative rods and yeast -he has been treated multiple times with ciprofloxacin -urine cx on 05/09 showed e coli with ella resistant to FQ's Plan: -rocephin IV 10mL @600mls/hr day 2 -plan to treat for 7-10 days (5) Hyperlipidemia Current Visit: No Status: Chronic Assessment and Plan: Pt is on Zocor 10mg -continue home med -encourage heart healthy diet (6) COPD (chronic obstructive pulmonary disease) Current Visit: No Status: Chronic Assessment and Plan: Pt is not requiring oxygen, no complaints of SOB/cough/wheeze -continue symbicort (7) Protein calorie malnutrition Current Visit: Yes Status: Acute Assessment and Plan: Prealbumin 20.5 -BMI 20.3 -pt is currently on CLD, states that he usually eats well and tolerates meals -ensure TID -PTOT consulted (8) Hypokalemia Current Visit: Yes Status: Acute Assessment and Plan: Potassium of 3.4 this AM -replace with 20mEq K chloride -recheck CMP in AM DVT Prophylaxis: SCD - Time Spent with Patient Total time spent is greater than 50% in coordination of care (as documented) at patient's floor/unit and/or counseling patient: less than 15 minutes Plan of Care Discussed with: nurse Internal Medicine: Result - Labs CBC & Chem 7: 05/21/18 05:03 05/21/18 05:03 Labs: Short CBC 05/20/18 05/21/18 Range/Units 17:00 05:03 WBC 8.4 (4.3-11.1) K/mcL Hgb 8.9 L 8.7 L (12.9-16.9) g/dL Hct 26.8 L 26.3 L (37.5-50.1) % Plt Count 172 (140-400) K/mcL Neutrophils # 5.8 (1.6-8.9) K/mcL BMP 05/21/18 05:03 Sodium 139 Potassium 3.4 L Chloride 111 H Carbon Dioxide 25 BUN 21 Creatinine 0.62 L Glucose 122 H Calcium 7.6 L - ABG Interpretation ABG results: PT/INR, D-dimer PT 12.8 Seconds (9.4-12.1) H 05/19/18 03:45 Consult Discharge Plan - Plan Referrals: Syeda Dubose, BREAKER MECHANIC [Primary Care Provider] - <Karol Drummond - Last Filed: 05/21/18 17:07> Hospitalist Progress Note - Encounter Date of Encounter: 05/21/18 - Exam Vitals: Temp Pulse Resp BP Pulse Ox 99.2 F 70 16 146/70 94 05/21/18 15:30 05/21/18 15:30 05/21/18 15:30 05/21/18 15:30 05/21/18 15:30 - Assessment and Plan (1) Hypertension Current Visit: No Status: Chronic (2) CAD (coronary artery disease) Current Visit: No Status: Chronic (3) GI bleed Current Visit: Yes Status: Acute (4) Urinary tract infection Current Visit: Yes Status: Acute (5) Hyperlipidemia Current Visit: No Status: Chronic (6) COPD (chronic obstructive pulmonary disease) Current Visit: No Status: Chronic (7) Protein calorie malnutrition Current Visit: Yes Status: Acute (8) Hypokalemia Current Visit: Yes Status: Acute - Time Spent with Patient Total time spent is greater than 50% in coordination of care (as documented) at patient's floor/unit and/or counseling patient: Internal Medicine: Result - Labs CBC & Chem 7: 05/21/18 15:15 05/21/18 05:03 Labs: Short CBC 05/20/18 05/21/18 05/21/18 Range/Units 17:00 05:03 15:15 WBC 8.4 (4.3-11.1) K/mcL Hgb 8.9 L 8.7 L 8.6 L (12.9-16.9) g/dL Hct 26.8 L 26.3 L 26.1 L (37.5-50.1) % Plt Count 172 (140-400) K/mcL Neutrophils # 5.8 (1.6-8.9) K/mcL BMP 05/21/18 05:03 Sodium 139 Potassium 3.4 L Chloride 111 H Carbon Dioxide 25 BUN 21 Creatinine 0.62 L Glucose 122 H Calcium 7.6 L - ABG Interpretation ABG results: PT/INR, D-dimer PT 12.8 Seconds (9.4-12.1) H 05/19/18 03:45 - Attending Attestation I examined this patient and my medical decision-making was reviewed with the Resident Physician Dr. Meneses. I agree with the documented findings, disposition and treatment plan as described except to the extent set forth below. Mr. Almazan is a 77 year old male with past medical history of aortic aneurysm , COPD, CAD, GERD, GI bleed, hyperlipidemia, HTN, MT, TIA and kidney stones presented to the ED for weakness and syncopal episode. Pt was admitted to ICU initially and started him on Protonix gtt. He was evaluated by GI and did EGD on 05/18/18 which showed distal esophageal ulcer was injected with epinephrine, diffuse gastritis, and gastric circumferential polypoid lesion. [facility]. He is alert, awake and O x 3 . States he is feeling little weak and lethargic today. No more hematemesis..Denied any blood in stool Gen: A, A, O x 3 Abd: Soft, NT, B a/p 1. Acute upper GI bleed s/p EGD showed distal esophageal ulcer was injected with epinephrine, diffuse gastritis, and gastric circumferential polypoid lesion Cont Protonix 40mg IV BID cont home Carafate dose Cont holding ASA and Plavix EGD in 2 days H/H Q12h advance diet as he tolerates <Carlos Meneses - Last Filed: 05/21/18 08:46> (1) GI bleed Qualifiers: GI bleed type/associated pathology: gastrointestinal hemorrhage with hematemesis Qualified Code(s): K92.0 - Hematemesis (2) Hypertension Qualifiers: Hypertension type: essential hypertension Qualified Code(s): I10 - Essential (primary) hypertension (3) CAD (coronary artery disease) Qualifiers: Coronary Disease-Associated Artery/Lesion type: [place] artery [place] vs. transplanted heart: [place] heart Associated angina: without angina Qualified Code(s): I25.10 - Atherosclerotic heart disease of [place] coronary artery without angina pectoris (4) Urinary tract infection Qualifiers: Urinary tract infection type: site unspecified Hematuria presence: without hematuria Qualified Code(s): N39.0 - Urinary tract infection, site not specified (5) Hyperlipidemia Qualifiers: Hyperlipidemia type: unspecified Qualified Code(s): E78.5 - Hyperlipidemia, unspecified (6) COPD (chronic obstructive pulmonary disease) Qualifiers: COPD type: chronic bronchitis Chronic bronchitis type: unspecified Qualified Code(s): J42 - Unspecified chronic bronchitis (7) Protein calorie malnutrition Qualifiers: Protein-calorie malnutrition severity: unspecified severity Qualified Code(s) : E46 - Unspecified protein-calorie malnutrition <Karol Drummond - Last Filed: 05/21/18 17:07> (1) Hypertension Qualifiers: Hypertension type: essential hypertension Qualified Code(s): I10 - Essential (primary) hypertension (2) CAD (coronary artery disease) Qualifiers: Coronary Disease-Associated Artery/Lesion type: [place] artery [place] vs. transplanted heart: [place] heart Associated angina: without angina Qualified Code(s): I25.10 - Atherosclerotic heart disease of [place] coronary artery without angina pectoris (3) GI bleed Qualifiers: GI bleed type/associated pathology: gastrointestinal hemorrhage with hematemesis Qualified Code(s): K92.0 - Hematemesis (4) Urinary tract infection Qualifiers: Urinary tract infection type: site unspecified Hematuria presence: without hematuria Qualified Code(s): N39.0 - Urinary tract infection, site not specified (5) Hyperlipidemia Qualifiers: Hyperlipidemia type: unspecified Qualified Code(s): E78.5 - Hyperlipidemia, unspecified (6) COPD (chronic obstructive pulmonary disease) Qualifiers: COPD type: chronic bronchitis Chronic bronchitis type: unspecified Qualified Code(s): J42 - Unspecified chronic bronchitis (7) Protein calorie malnutrition Qualifiers: Protein-calorie malnutrition severity: unspecified severity Qualified Code(s) : E46 - Unspecified protein-calorie malnutrition
[2018-05-21 15:40] LABS: Hematocrit 26.1 % (37.5-50.1); Hemoglobin 8.6 g/dL (12.9-16.9)
--- NOTE | 2018-05-21 17:11 | Electrocardiograph Report ---
[address] [address] Test Date: 2018-05-18 Pat Name: Alonzo Almazan Department: EXAM8 Room: 2NE27 Gender: M Head Of Quality: : 1940 Requested By: [id number] Order Number: [id number] Reading MD: Kan Rajan Measurements Intervals [place] Rate: 89 P: 1 VT: 155 QRS: -62 QRSD: 138 T: 98 QT: 424 QTc: 516 Interpretive Statements SINUS RHYTHM RIGHT BUNDLE BRANCH BLOCK LEFT ANTERIOR FASCICULAR BLOCK LEFT VENTRICULAR HYPERTROPHY ST-T CHANGES DUE TO HYPERTROPHY AND/OR ISCHEMIA PROLONGED QT INTERVAL Electronically Signed On 05-21-2018 17:09:52 EDT by Kan Rajan
[2018-05-21] MEDS ORDERED: Melatonin 3 MG TABLET PO ONE (21:27)
[2018-05-21 21:52] LABS: Hematocrit 25.5 % (37.5-50.1); Hemoglobin 8.3 g/dL (12.9-16.9)
[2018-05-22 05:04] LABS: Hemoglobin 8.2 g/dL (12.9-16.9)
[2018-05-22 05:28] LABS: Alanine Aminotransferase 61 Units/L (7-52); Albumin 2.2 g/dL (3.5-5.7); Albumin/Globulin Ratio 1.2 (1.1-2.2); Alkaline Phosphatase 37 Units/L (34-104); Aspartate Amino Transferase 42 Units/L (13-39); BUN/Creatinine Ratio 32 (6-26); Bilirubin,Total 0.6 mg/dL (0.3-1.0); Blood Urea Nitrogen 19 mg/dL (8-23); Calcium 7.5 mg/dL (8.6-10.3); Carbon Dioxide 26 mEq/L (23-29); Chloride 109 mEq/L (98-107); Globulin 1.9 g/dL (2.4-3.5); Glucose 100 mg/dL (70-105); Osmolality,Calculated 290 (280-300); Potassium 3.5 mEq/L (3.5-5.1); Sodium 139 mEq/L (136-145); Total Protein 4.1 g/dL (6.4-8.9); eGFR For Non-African Americans > 60 (> 60)
[2018-05-22] MEDS: Pantoprazole 40 MG VIAL IVP SCH ×2 (06:38→16:50)
--- NOTE | 2018-05-22 07:59 | Internal Med Progress Note ---
<Carlos Meneses S - Last Filed: 05/22/18 13:18> Hospitalist Progress Note - Encounter Date of Encounter: 05/22/18 Time of Encounter: 08:00 - Subjective Interval History: Pt is seen at the bedside. 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 The pt states that he came to the hospital after feeling very weak and having multiple episodes of hemetemesis assoc with abdmominal pain. He was transferred to ICU on admission and go 4U of pRBC total. He has been on the floor since yesterday. The pt has no complaints of chest pain or SOB this morning. He has mild belly pain when he tries to sit up, denies epigastric pain. States that the pain is the same from yesterday. He is tolerating a full liquid diet. GI to scope either Monday or . -he denies dyspnea, cough, dysuria, edema Nurse confirms all of the above and states that the pt had no overnight events, episodes of hemetemesis - Exam Vitals: Temp Pulse Resp BP Pulse Ox 98.3 F 55 16 137/74 92 05/22/18 07:02 05/22/18 07:02 05/22/18 07:02 05/22/18 07:02 05/22/18 07:02 Exam: GEN: No acute distress, A&O3 HEAD: Atraumatic, normocephalic HEART: RRR, normal S1 and S2,no MRG LUNGS: decreased breath sounds B/L, no wheezes, rhonchi, or crackles ABD: Soft, nondistended, TTP lower abd with deep palpation, no rebound or guarding EXT: no edema NEURO: No focal deficits - Assessment and Plan (1) GI bleed Current Visit: Yes Status: Acute Assessment and Plan: Pt admitted with hemetemesis and abdominal pain Hemoglobin at admission: 7.2 Hemoglobin today: 8.2, trending down from 9.3 ----> 8.9 ---> 8.7 ---> 8.6 ---> 8.3 EGD on 05/18/18 - distal esophageal ulcer -injected with epinephrine -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 FOBT (+) -CEA <4.6 Plan: -continue to soft diet, as per GI. Pt tolerating -GI to rescope on monday or -check H&H q6hr -transfuse if hgb <8 -Zofran and phenergan prn nausea -GI to repeat egd after plavix held for appropriate amount of time -continue protonix 40mg ivp -continue carafate (2) Hypertension Current Visit: No Status: Chronic Assessment and Plan: BP today 137/74 -adequately controlled -pt is on Zestril 40mg PO daily -continue home medications (3) CAD (coronary artery disease) Current Visit: No Status: Chronic Assessment and Plan: Pt has hx of CAD -PCI x 4 -he is on Plavix 75mg PO daily, which has since been held 2/ to acute GIB -pt is a high risk pt and is at risk for major bleeding again Plan: -benefits do not outweigh the adverse effects of medication usage -disconitnue Plavix -Continue pt with Lisinopril 40mg, Zocor 10mg, Isosorbide 30mg (4) Urinary tract infection Current Visit: Yes Status: Acute Assessment and Plan: Pt has urine cx growing gram negative rods and yeast -he has been treated multiple times with ciprofloxacin -urine cx on 05/09 showed e coli with ella resistant to FQ's Plan: -rocephin IV 10mL @600mls/hr day 3 -plan to treat for 7-10 days (5) Hyperlipidemia Current Visit: No Status: Chronic Assessment and Plan: Pt is on Zocor 10mg -continue home med -encourage heart healthy diet (6) COPD (chronic obstructive pulmonary disease) Current Visit: No Status: Chronic Assessment and Plan: Pt is not requiring oxygen, no complaints of SOB/cough/wheeze -continue symbicort -O2 sat 92% on RA (7) Protein calorie malnutrition Current Visit: Yes Status: Acute Assessment and Plan: Prealbumin 20.5 -BMI 20.4 -pt is currently on full liquid diet, tolerating -ensure TID -PTOT consulted (8) Hypokalemia Current Visit: Yes Status: Resolved Assessment and Plan: Potassium of 3.5 this morning -replaced with 20mEq K chloride yesterday -recheck CMP in AM - Time Spent with Patient Total time spent is greater than 50% in coordination of care (as documented) at patient's floor/unit and/or counseling patient: less than 15 minutes Plan of Care Discussed with: patient Internal Medicine: Result - Labs CBC & Chem 7: 05/22/18 04:15 05/22/18 04:15 Labs: Short CBC 05/21/18 05/21/18 05/22/18 Range/Units 15:15 21:29 04:15 Hgb 8.6 L 8.3 L 8.2 L (12.9-16.9) g/dL Hct 26.1 L 25.5 L 25.0 L (37.5-50.1) % BMP 05/22/18 04:15 Sodium 139 Potassium 3.5 Chloride 109 H Carbon Dioxide 26 BUN 19 Creatinine 0.60 L Glucose 100 Calcium 7.5 L Liver Function 05/22/18 Range/Units 04:15 Total Bilirubin 0.6 (0.3-1.0) mg/dL AST 42 H (13-39) Units/L ALT 61 H (7-52) Units/L Alkaline Phosphatase 37 (34-104) Units/L Albumin 2.2 L (3.5-5.7) g/dL - ABG Interpretation ABG results: PT/INR, D-dimer PT 12.8 Seconds (9.4-12.1) H 05/19/18 03:45 Consult Discharge Plan - Plan Referrals: Syeda Duobse, BIOLOGICAL LAB TECHNICIAN [Primary Care Provider] - <Elisa Clayton - Last Filed: 05/22/18 13:53> Hospitalist Progress Note - Encounter Date of Encounter: 05/22/18 - Exam Vitals: Temp Pulse Resp BP Pulse Ox 98.3 F 57 16 167/96 94 05/22/18 11:04 05/22/18 11:04 05/22/18 11:04 05/22/18 11:04 05/22/18 11:04 - Assessment and Plan (1) Hypertension Current Visit: No Status: Chronic (2) CAD (coronary artery disease) Current Visit: No Status: Chronic (3) GI bleed Current Visit: Yes Status: Acute (4) Urinary tract infection Current Visit: Yes Status: Acute (5) Hyperlipidemia Current Visit: No Status: Chronic (6) COPD (chronic obstructive pulmonary disease) Current Visit: No Status: Chronic (7) Protein calorie malnutrition Current Visit: Yes Status: Acute (8) Hypokalemia Current Visit: Yes Status: Resolved - Time Spent with Patient Total time spent is greater than 50% in coordination of care (as documented) at patient's floor/unit and/or counseling patient: Internal Medicine: Result - Labs CBC & Chem 7: 05/22/18 04:15 05/22/18 04:15 Labs: Short CBC 05/21/18 05/21/18 05/22/18 Range/Units 15:15 21:29 04:15 Hgb 8.6 L 8.3 L 8.2 L (12.9-16.9) g/dL Hct 26.1 L 25.5 L 25.0 L (37.5-50.1) % BMP 05/22/18 04:15 Sodium 139 Potassium 3.5 Chloride 109 H Carbon Dioxide 26 BUN 19 Creatinine 0.60 L Glucose 100 Calcium 7.5 L Liver Function 05/22/18 Range/Units 04:15 Total Bilirubin 0.6 (0.3-1.0) mg/dL AST 42 H (13-39) Units/L ALT 61 H (7-52) Units/L Alkaline Phosphatase 37 (34-104) Units/L Albumin 2.2 L (3.5-5.7) g/dL - ABG Interpretation ABG results: PT/INR, D-dimer PT 12.8 Seconds (9.4-12.1) H 05/19/18 03:45 - Attending Attestation I have seen and examined this pt independently. I have discussed with resident physician Dr Meneses regarding the management plan. Agree with the documentation. <Carlos Meneses S - Last Filed: 05/22/18 13:18> (1) GI bleed Qualifiers: GI bleed type/associated pathology: gastrointestinal hemorrhage with hematemesis Qualified Code(s): K92.0 - Hematemesis (2) Hypertension Qualifiers: Hypertension type: essential hypertension Qualified Code(s): I10 - Essential (primary) hypertension (3) CAD (coronary artery disease) Qualifiers: Coronary Disease-Associated Artery/Lesion type: [place] artery [place] vs. transplanted heart: [place] heart Associated angina: without angina Qualified Code(s): I25.10 - Atherosclerotic heart disease of [place] coronary artery without angina pectoris (4) Urinary tract infection Qualifiers: Urinary tract infection type: site unspecified Hematuria presence: without hematuria Qualified Code(s): N39.0 - Urinary tract infection, site not specified (5) Hyperlipidemia Qualifiers: Hyperlipidemia type: unspecified Qualified Code(s): E78.5 - Hyperlipidemia, unspecified (6) COPD (chronic obstructive pulmonary disease) Qualifiers: COPD type: chronic bronchitis Chronic bronchitis type: unspecified Qualified Code(s): J42 - Unspecified chronic bronchitis (7) Protein calorie malnutrition Qualifiers: Protein-calorie malnutrition severity: unspecified severity Qualified Code(s) : E46 - Unspecified protein-calorie malnutrition <Elisa Clayton - Last Filed: 05/22/18 13:53> (1) Hypertension Qualifiers: Hypertension type: essential hypertension Qualified Code(s): I10 - Essential (primary) hypertension (2) CAD (coronary artery disease) Qualifiers: Coronary Disease-Associated Artery/Lesion type: [place] artery [place] vs. transplanted heart: [place] heart Associated angina: without angina Qualified Code(s): I25.10 - Atherosclerotic heart disease of [place] coronary artery without angina pectoris (3) GI bleed Qualifiers: GI bleed type/associated pathology: gastrointestinal hemorrhage with hematemesis Qualified Code(s): K92.0 - Hematemesis (4) Urinary tract infection Qualifiers: Urinary tract infection type: site unspecified Hematuria presence: without hematuria Qualified Code(s): N39.0 - Urinary tract infection, site not specified (5) Hyperlipidemia Qualifiers: Hyperlipidemia type: unspecified Qualified Code(s): E78.5 - Hyperlipidemia, unspecified (6) COPD (chronic obstructive pulmonary disease) Qualifiers: COPD type: chronic bronchitis Chronic bronchitis type: unspecified Qualified Code(s): J42 - Unspecified chronic bronchitis (7) Protein calorie malnutrition Qualifiers: Protein-calorie malnutrition severity: unspecified severity Qualified Code(s) : E46 - Unspecified protein-calorie malnutrition
[2018-05-22] MEDS: Lisinopril 20 MG TABLET PO SCH (10:08)
[2018-05-22] MEDS: cefTRIAXone 1,000 MG in Water for inj. (sterile) 20 ML 10 ML IVP SCH (10:10)
[2018-05-22 14:02] LABS: Hemoglobin 8.9 g/dL (12.9-16.9)
[2018-05-23] MEDS: Pantoprazole 40 MG VIAL IVP SCH ×2 (06:14→17:22)
[2018-05-23 08:12] LABS: Hematocrit 29.6 % (37.5-50.1); Hemoglobin 9.6 g/dL (12.9-16.9)
[2018-05-23] MEDS: Lisinopril 20 MG TABLET PO SCH (09:02)
[2018-05-23] MEDS: cefTRIAXone 1,000 MG in Water for inj. (sterile) 20 ML 10 ML IVP SCH (09:02)
--- NOTE | 2018-05-23 09:21 | Internal Med Progress Note ---
<Carlos Meneses S - Last Filed: 05/23/18 10:44> Hospitalist Progress Note - Encounter Date of Encounter: 05/23/18 Time of Encounter: 06:45 - Subjective Interval History: Pt is seen at the bedside. 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 The pt states that he came to the hospital after feeling very weak and having multiple episodes of hemetemesis assoc with abdmominal pain. He was transferred to ICU on admission and go 4U of pRBC total. He has been on the floor since yesterday. The pt has no complaints of chest pain or SOB this morning. He has mild belly pain when he tries to sit up, denies epigastric pain. -no changes in pain -he denies dyspnea, cough, dysuria, edema Nurse confirms all of the above and states that the pt had no overnight events, episodes of hemetemesis Patient to be scoped today -pt is currently NPO - Exam Vitals: Temp Pulse Resp BP Pulse Ox 98.1 F 55 16 168/92 91 05/23/18 07:16 05/23/18 07:16 05/23/18 07:16 05/23/18 07:16 05/23/18 07:16 Exam: GEN: No acute distress, A&O3 HEAD: Atraumatic, normocephalic HEART: RRR, normal S1 and S2,no MRG LUNGS: decreased breath sounds B/L, no wheezes, rhonchi, or crackles ABD: Soft, nondistended, TTP lower abd with deep palpation, no rebound or guarding EXT: no edema NEURO: No focal deficits - Assessment and Plan (1) GI bleed Current Visit: Yes Status: Acute Assessment and Plan: Pt admitted with hemetemesis and abdominal pain Hemoglobin at admission: 7.2 Hemoglobin today: 9.6 EGD on 05/18/18 - distal esophageal ulcer -injected with epinephrine -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 FOBT (+) -CEA <4.6 PT 12.8, INR 1.1 Plan: -NPO today, GI to scope this afternoon -GI to rescope on monday or -hemoglobin stable, check h&h in AM -transfuse if hgb <8 -Zofran and phenergan prn nausea -GI to repeat egd after plavix held for appropriate amount of time -continue protonix 40mg ivp -continue carafate (2) Hypertension Current Visit: No Status: Chronic Assessment and Plan: BP today 168/92 -adequately controlled -pt is on Zestril 40mg PO daily -continue home medications -add hydralazine 10mg IVP for SBP >160 (3) CAD (coronary artery disease) Current Visit: No Status: Chronic Assessment and Plan: Pt has hx of CAD -PCI x 4 -he is on Plavix 75mg PO daily, which has since been held / to acute GIB -pt is a high risk pt and is at risk for major bleeding again Plan: -benefits do not outweigh the adverse effects of medication usage -disconitnue Plavix -Continue pt with Lisinopril 40mg, Zocor 10mg, Isosorbide 30mg (4) Urinary tract infection Current Visit: Yes Status: Acute Assessment and Plan: Pt has urine cx growing gram negative rods and yeast -he has been treated multiple times with ciprofloxacin -urine cx on 05/09 showed e coli with ella resistant to FQ's Plan: -rocephin IV 10mL @600mls/hr day 4 -plan to treat for 7-10 days (5) Hyperlipidemia Current Visit: No Status: Chronic Assessment and Plan: Pt is on Zocor 10mg -continue home med -encourage heart healthy diet (6) COPD (chronic obstructive pulmonary disease) Current Visit: No Status: Chronic Assessment and Plan: Pt is not requiring oxygen, no complaints of SOB/cough/wheeze -continue symbicort -O2 sat 92% on RA (7) Protein calorie malnutrition Current Visit: Yes Status: Acute Assessment and Plan: Prealbumin 20.5 -BMI 20.4 -pt is currently on full liquid diet, tolerating -ensure TID -PTOT consulted (8) Hypokalemia Current Visit: Yes Status: Resolved - Time Spent with Patient Total time spent is greater than 50% in coordination of care (as documented) at patient's floor/unit and/or counseling patient: Internal Medicine: Result - Labs CBC & Chem 7: 05/23/18 08:01 05/22/18 04:15 Labs: Short CBC 05/22/18 05/23/18 Range/Units 07:45 08:01 Hgb 8.9 L 9.6 L (12.9-16.9) g/dL Hct 28.0 L 29.6 L (37.5-50.1) % - ABG Interpretation ABG results: PT/INR, D-dimer PT 12.8 Seconds (9.4-12.1) H 05/19/18 03:45 Consult Discharge Plan - Plan Referrals: Syeda Dubose, SUBSTANCE ABUSE NURSE [Primary Care Provider] - <Elisa Clayton - Last Filed: 05/23/18 11:53> Hospitalist Progress Note - Encounter Date of Encounter: 05/23/18 - Exam Vitals: Temp Pulse Resp BP Pulse Ox 98.5 F 57 16 163/79 98 05/23/18 10:42 05/23/18 10:42 05/23/18 10:42 05/23/18 10:42 05/23/18 10:42 - Assessment and Plan (1) Hypertension Current Visit: No Status: Chronic (2) CAD (coronary artery disease) Current Visit: No Status: Chronic (3) GI bleed Current Visit: Yes Status: Acute (4) Urinary tract infection Current Visit: Yes Status: Acute (5) Hyperlipidemia Current Visit: No Status: Chronic (6) COPD (chronic obstructive pulmonary disease) Current Visit: No Status: Chronic (7) Protein calorie malnutrition Current Visit: Yes Status: Acute (8) Hypokalemia Current Visit: Yes Status: Resolved - Time Spent with Patient Total time spent is greater than 50% in coordination of care (as documented) at patient's floor/unit and/or counseling patient: Internal Medicine: Result - Labs CBC & Chem 7: 05/23/18 08:01 05/22/18 04:15 Labs: Short CBC 05/22/18 05/23/18 Range/Units 07:45 08:01 Hgb 8.9 L 9.6 L (12.9-16.9) g/dL Hct 28.0 L 29.6 L (37.5-50.1) % - ABG Interpretation ABG results: PT/INR, D-dimer PT 12.8 Seconds (9.4-12.1) H 05/19/18 03:45 - Attending Attestation I have seen and examined this patient independently. I have discussed with resident physician Dr. Meneses regarding the management plan. Agree with the documentation. <Carlos Meneses - Last Filed: 05/23/18 10:44> (1) GI bleed Qualifiers: GI bleed type/associated pathology: gastrointestinal hemorrhage with hematemesis Qualified Code(s): K92.0 - Hematemesis (2) Hypertension Qualifiers: Hypertension type: essential hypertension Qualified Code(s): I10 - Essential (primary) hypertension (3) CAD (coronary artery disease) Qualifiers: Coronary Disease-Associated Artery/Lesion type: [place] artery [place] vs. transplanted heart: [place] heart Associated angina: without angina Qualified Code(s): I25.10 - Atherosclerotic heart disease of [place] coronary artery without angina pectoris (4) Urinary tract infection Qualifiers: Urinary tract infection type: site unspecified Hematuria presence: without hematuria Qualified Code(s): N39.0 - Urinary tract infection, site not specified (5) Hyperlipidemia Qualifiers: Hyperlipidemia type: unspecified Qualified Code(s): E78.5 - Hyperlipidemia, unspecified (6) COPD (chronic obstructive pulmonary disease) Qualifiers: COPD type: chronic bronchitis Chronic bronchitis type: unspecified Qualified Code(s): J42 - Unspecified chronic bronchitis (7) Protein calorie malnutrition Qualifiers: Protein-calorie malnutrition severity: unspecified severity Qualified Code(s) : E46 - Unspecified protein-calorie malnutrition <Elisa Clayton - Last Filed: 05/23/18 11:53> (1) Hypertension Qualifiers: Hypertension type: essential hypertension Qualified Code(s): I10 - Essential (primary) hypertension (2) CAD (coronary artery disease) Qualifiers: Coronary Disease-Associated Artery/Lesion type: [place] artery [place] vs. transplanted heart: [place] heart Associated angina: without angina Qualified Code(s): I25.10 - Atherosclerotic heart disease of [place] coronary artery without angina pectoris (3) GI bleed Qualifiers: GI bleed type/associated pathology: gastrointestinal hemorrhage with hematemesis Qualified Code(s): K92.0 - Hematemesis (4) Urinary tract infection Qualifiers: Urinary tract infection type: site unspecified Hematuria presence: without hematuria Qualified Code(s): N39.0 - Urinary tract infection, site not specified (5) Hyperlipidemia Qualifiers: Hyperlipidemia type: unspecified Qualified Code(s): E78.5 - Hyperlipidemia, unspecified (6) COPD (chronic obstructive pulmonary disease) Qualifiers: COPD type: chronic bronchitis Chronic bronchitis type: unspecified Qualified Code(s): J42 - Unspecified chronic bronchitis (7) Protein calorie malnutrition Qualifiers: Protein-calorie malnutrition severity: unspecified severity Qualified Code(s) : E46 - Unspecified protein-calorie malnutrition
[2018-05-23] MEDS ORDERED: hydrALAZINE 10 MG TABLET PO SCH (12:00)
[2018-05-23] MEDS ORDERED: *HR* Propofol 200 MG/20 ML VIAL IVP ONE (13:10)
[2018-05-23] MEDS ORDERED: Lidocaine -MPF 2% 2 ML VIAL ONE (13:10)
--- NOTE | 2018-05-23 13:57 | Anesthesia Evaluation PreOp ---
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"), Other (GI bleed) Anesthesia History: No Prior Anesthetic Complications Alcohol Use: none Drug use: none Medications and Allergies Isosorbide MONOnitrate [Isosorbide Mononitrate] 30 mg PO DAILY 06/09/15 [History ] Simvastatin [Zocor] 10 mg PO DAILY 02/05/16 [History] ALPRAZolam [Xanax 0.25 MG Tablet] 0.25 mg PO TID 06/11/17 [History] Nitroglycerin [Nitrostat] 0.4 mg SL Q5M PRN 06/11/17 [History] Omeprazole [PriLOSEC] 40 mg PO DAILY 06/11/17 [History] Clopidogrel [Plavix] 75 mg PO DAILY 02/26/18 [History] Finasteride [Proscar] 5 mg PO DAILY 02/26/18 [History] Lisinopril [Zestril] 40 mg PO DAILY 02/26/18 [History] Metoclopramide HCl 10 mg PO BID 02/26/18 [History] Ranitidine HCl [Zantac] 300 mg PO DAILY 02/26/18 [History] Tamsulosin [Flomax] 0.4 mg PO DAILY 02/26/18 [History] Tizanidine HCl 4 mg PO Q12H PRN 02/26/18 [History] Sucralfate [Carafate] 1 gm PO TIDAC #90 udc 02/28/18 [Rx] Gabapentin [Neurontin] 100 mg PO TID 03/25/18 [History] Albuterol Sulfate [Ventolin Hfa] 2 puff IH Q6H PRN 05/09/18 [History] Ciprofloxacin HCl [Cipro] 500 mg PO BID 05/09/18 [History] Ferrous Sulfate [Iron] 325 mg PO DAILY 05/09/18 [History] Fluticasone/Salmeterol [Advair 250-50 Diskus] 1 each IH BID 05/09/18 [History] HYDROcodone/Acet 5/325 mg [Oxly 5-325 mg] 1 tab PO Q6H PRN 3 Days #10 tab 05/09 [Rx] Nabumetone [Relafen] 500 mg PO BID 05/18/18 [History] 3 Allergy/AdvReac Type Severity Reaction Status Date / Time Iodinated Contrast- Oral and Allergy Anaphylaxis Verified 03/25/18 14:46 IV Dye - Meds/Allergy Pre-op Review Medications Reviewed: Yes Allergies Reviewed: Yes Beta Blockers on Current Med List: No Anesthesia Results - Labs 05/23/18 08:01 05/22/18 04:15 - Imaging EKG: report reviewed (SINUS RHYTHM RIGHT BUNDLE BRANCH BLOCK LEFT ANTERIOR FASCICULAR BLOCK LEFT VENTRICULAR HYPERTROPHY ST-T CHANGES DUE TO HYPERTROPHY AND/OR ISCHEMIA PROLONGED QT INTERVAL Electronically Signed On 05-21-2018 17:09: 52 EDT by Kan Rajan) Anesthesia Exam Vital Signs/O2 Sat, Most Current Temp Pulse Resp BP Pulse Ox 98.5 F 57 16 163/79 98 05/23/18 10:42 05/23/18 10:42 05/23/18 10:42 05/23/18 10:42 05/23/18 10:42 Weight: 60kg NPO (# of Hours): >8 Pain Scale: 0 Pain Scale Used: Numeric (1 - 10) - HEENT Pupil (Motor): Pupils equal, EOMI Mallampati: II Teeth: Edentulous Oral Opening: Greater than 3 - [employer]PITAL [employer]CIAL OFFICER LOC: Oriented [employer]PITAL [employer]IEF [employer]CIAL OFFICER Motor: Normal RUE, Normal LUE, Normal RLE, Normal LLE, Normal Face [employer]ER Sensory: Normal: RUE, LUE, RLE, LLE, Face - Cardiac Rhythm: Regular - Pulmonary Breath Sounds: bilateral Clear Respiratory Effort: Symmetrical Anesthesia Assess/Plan ASA Score: 3 Modified [place] Scale for Level of Consciousness: Cooperative, oriented, and tranquil Anesthetic Plan: MAC Monitoring Plan: Standard Monitors Recovery Plan: PACU
[2018-05-23] MEDS ORDERED: Albuterol 2.5 MG/3 ML NEBULIZER ONE (15:02)
[2018-05-23] MEDS ORDERED: Albuterol 2.5 MG/3 ML NEBULIZER IH ONE (15:03)
[2018-05-23] MEDS ORDERED: Ipratropium/Albuterol Neb 3 ML IH PRN (15:25)
[2018-05-23] MEDS ORDERED: Ipratropium/Albuterol Neb 3 ML IH SCH (16:00)
--- NOTE | 2018-05-23 16:17 | Anesthesia Evaluation Post Op ---
Date of Encounter: 05/23/18 Time of Encounter: 16:12 - Vital Signs Vital Signs: Vital Signs/O2 Sat, Most Current Temp Pulse Resp BP Pulse Ox 98.5 F 52 16 172/80 96 05/23/18 14:02 05/23/18 14:02 05/23/18 14:02 05/23/18 14:02 05/23/18 14:02 - Lungs Lungs: Clear Ascult./Percussion (diminished breath sounds on the left) - Airway Airway: Non-obstructed - Cardiovascular Regular Rate - Mental Status Mental Status: Alert & Oriented, Answers Appropriately - Pain Pain Scale: 0 Pain Scale used: Numeric (1 - 10) - Nausea Vomiting Nausea Vomiting: Not Present - Hydration Hydration: NPO Notes: 05/23/18 16:13 After the procedure, pt sats to mid 80's, he complained of L sided chest pain but was not dyspneic, EKG remained unchanged, pt's symptoms improved with nebulizer treatment and a cxr revealed a new left lower lobe opacity consistent with ischemia which was a change from a previous CXR on 05/18. Pt sat was 98% on room air and did not appear to be in resp distress. I spoke of the new findings with Dr Clayton, pt's primary, and he agreed to further evaluate the patient on the floor - Discharge PostOp Status: Transfer Patient to floor Attestation: I have assessed this patient and find they meet discharge criteria.
--- NOTE | 2018-05-23 16:47 | Event Note ---
Date of Encounter: 05/23/18 Time of Encounter: 16:[address] Julian and anesthesiology Dr Card that pt has desaturation in PACU, with SpO2 down to 80s. Pt was treated with Duoneb and symptoms improved. Bedside CXR shows new left infiltrate. Saw pt at bedside as he came back from PACU. Pt denies fever, chest pain, or SOB. SpO2 94% in RA. Pt seems in no acute respiratory distress. Further asking hx, pt said he start to have productive cough since this morning, before going to OR. On Exam, pt has no wheezing. Lungs are clear. HR 60s, RRR. Consider HAP, will sent sputum culture. Start vanco and zosyn iv. NC O2 as needed. Pt has hx of COPD, will place Duoneb as needed. Cont closely monitor pt.
[2018-05-23] MEDS ORDERED: Ampicillin/Sulbactam 3,000 MG in 0.9 % Sodium Chloride Mini Bag 100 ML IVPB SCH (18:00)
[2018-05-23] MEDS: amLODIPine 5 MG TABLET PO SCH (18:15)
[2018-05-24] MEDS: Piperacillin/Tazobactam 3.375 GM in 0.9 % Sodium Chloride Mini Bag 100 ML IVPB SCH ×3 (00:23→17:13)
[2018-05-24] MEDS: OXYCODONE Oral CONC 10 MG/0.5 ML ORAL.SYG SL PRN (00:38)
[2018-05-24 04:43] LABS: Hematocrit 29.1 % (37.5-50.1); Hemoglobin 9.5 g/dL (12.9-16.9)
[2018-05-24 05:03] LABS: Alanine Aminotransferase 102 Units/L (7-52); Albumin 2.5 g/dL (3.5-5.7); Albumin/Globulin Ratio 1.1 (1.1-2.2); Alkaline Phosphatase 50 Units/L (34-104); Aspartate Amino Transferase 43 Units/L (13-39); BUN/Creatinine Ratio 14 (6-26); Bilirubin,Total 0.6 mg/dL (0.3-1.0); Blood Urea Nitrogen 10 mg/dL (8-23); Calcium 7.9 mg/dL (8.6-10.3); Carbon Dioxide 25 mEq/L (23-29); Chloride 105 mEq/L (98-107); Globulin 2.3 g/dL (2.4-3.5); Glucose 108 mg/dL (70-105); Osmolality,Calculated 282 (280-300); Potassium 3.7 mEq/L (3.5-5.1); Sodium 136 mEq/L (136-145); Total Protein 4.8 g/dL (6.4-8.9); eGFR For Non-African Americans > 60 (> 60)
[2018-05-24 05:44] LABS: Basophils % 0.3 %; Eosinophils # 0.2 K/mcL (0.0-0.6); Eosinophils % 1.5 %; Immature Granulocytes % 0.4 % (0-4); Lymphocytes # 1.8 K/mcL (0.6-4.6); Lymphocytes % 17.9 %; Mean Corpuscular Hemoglobin 27.5 pg (28.0-33.3); Monocytes # 0.5 K/mcL (0.0-1.3); Neutrophils # 7.5 K/mcL (1.6-8.9); Platelet Count 251 K/mcL (140-400); Red Blood Count 3.49 M/mcL (4.19-5.50); Red Cell Distribution Width 16.2 % (11.5-14.5); Segmented Neutrophils % 74.9 %
[2018-05-24] MEDS: Pantoprazole 40 MG VIAL IVP SCH ×2 (06:11→17:12)
[2018-05-24] MEDS: amLODIPine 5 MG TABLET PO SCH (07:58)
[2018-05-24] MEDS: Lisinopril 20 MG TABLET PO SCH (08:08)
--- NOTE | 2018-05-24 08:16 | Internal Med Progress Note ---
<Carlos Meneses S - Last Filed: 05/24/18 10:48> Hospitalist Progress Note - Encounter Date of Encounter: 05/24/18 Time of Encounter: 06:40 - Subjective Interval History: Pt is seen at the bedside. 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 The pt states that he came to the hospital after feeling very weak and having multiple episodes of hemetemesis assoc with abdmominal pain. He was transferred to ICU on admission and go 4U of pRBC total. He has been on the floor since yesterday. Pt re-scoped yesterday -circumferential granularit t anastomosis with some thickened gastric folds but no mass -single 15mm mucosal nodule with localized distrubution found at esophageal anastomosis, 32 cm from incisiors -bx taken with cold forceps for histology -severe erosive/ulcerated esophagiitis in lower esophagus at and above the anastomosis exending for about 5cm proximally, very friable Pt desaturated in PACU to the 80's and was tx with duonebs and improved -beside CXR showed new left infiltrate, -pt told attending he started to have a productive cough that morning The pt has no complaints of chest pain or SOB this morning. He denies cough. Continues to have mild belly pain when he sits up. No epigastric pain. -he denies dyspnea, hemetemesis, dysuria, edema Nurse confirms all of the above and states that the pt had no overnight events, episodes of hemetemesis - Exam Vitals: Temp Pulse Resp BP Pulse Ox 98 F 54 15 117/76 95 05/24/18 06:30 05/24/18 06:30 05/24/18 06:30 05/24/18 06:30 05/24/18 06:30 Exam: GEN: No acute distress, A&O3 HEAD: Atraumatic, normocephalic HEART: RRR, normal S1 and S2,no MRG LUNGS: decreased breath sounds B/L, no wheezes, rhonchi, or crackles ABD: Soft, nondistended, TTP lower abd with deep palpation, no rebound or guarding EXT: no edema NEURO: No focal deficits - Assessment and Plan (1) GI bleed Current Visit: Yes Status: Acute Assessment and Plan: Pt admitted with hemetemesis and abdominal pain Hemoglobin at admission: 7.2 Hemoglobin today: 9.5 EGD on 05/18/18 - distal esophageal ulcer -injected with epinephrine -possible malignant tumor at the GE junction -gastritis, C/I to bx Pt re-scoped yesterday (05/24/18) -circumferential granularit t anastomosis with some thickened gastric folds but no mass -single 15mm mucosal nodule with localized distrubution found at esophageal anastomosis, 32 cm from incisiors -bx taken with cold forceps for histology -severe erosive/ulcerated esophagiitis in lower esophagus at and above the anastomosis exending for about 5cm proximally, very friable Pt desaturated in PACU to the 80's and was tx with duonebs and improved -beside CXR showed new left infiltrate, -pt told attending he started to have a productive cough that morning Pt reports no vomiting overnight, nurse confirms. FOBT (+) -CEA <4.6 PT 12.8, INR 1.1 Plan: -GI recommends to continue PPI BID, carafate QID and full liquid diet -hemoglobin stable, check h&h in AM -transfuse if hgb <8 -Zofran and phenergan prn nausea -continue protonix 40mg ivp -continue carafate -not restarting plavix due to bleeding risk -advance diet as tolerated to regular diet -started vanc and zosyn for the presumed HAP (2) Hypertension Current Visit: No Status: Chronic Assessment and Plan: BP today 117/76 -adequately controlled -pt is on Zestril 40mg PO daily -continue home medications -add hydralazine 10mg IVP for SBP >160 (3) CAD (coronary artery disease) Current Visit: No Status: Chronic Assessment and Plan: Pt has hx of CAD -PCI x 4 -he is on Plavix 75mg PO daily, which has since been held 2/2 to acute GIB -pt is a high risk pt and is at risk for major bleeding again Plan: -benefits do not outweigh the adverse effects of medication usage -disconitnue Plavix -Continue pt with Lisinopril 40mg, Zocor 10mg, Isosorbide 30mg (4) Urinary tract infection Current Visit: Yes Status: Acute Assessment and Plan: Pt has urine cx growing gram negative rods and yeast -he has been treated multiple times with ciprofloxacin -urine cx on 05/09 showed e coli with ella resistant to FQ's Plan: -rocephin IV 10mL @600mls/hr day 5 -plan to treat for 7-10 days (5) Hyperlipidemia Current Visit: No Status: Chronic Assessment and Plan: Pt is on Zocor 10mg -continue home med -encourage heart healthy diet (6) COPD (chronic obstructive pulmonary disease) Current Visit: No Status: Chronic Assessment and Plan: Pt is not requiring oxygen, no complaints of SOB/cough/wheeze -continue symbicort -O2 sat 95% on RA (7) Protein calorie malnutrition Current Visit: Yes Status: Acute Assessment and Plan: Prealbumin 20.5 -BMI 20.1 -pt is currently on full liquid diet, tolerating -ensure TID -PTOT consulted (8) Hypokalemia Current Visit: Yes Status: Resolved Assessment and Plan: Potassium of 3.7 this morning -recheck CMP in AM (9) Pneumonia Current Visit: Yes Status: Acute Assessment and Plan: Pt desaturated in PACU to the 80's and was tx with duonebs and improved after EGD -beside CXR showed new left infiltrate, -pt told attending he started to have a productive cough that morning Pt denies cough or SOB this morning. Denies fevers/chills. Pt afebrile WBC count of 10 Plan: -started on vancomycin/zosyn IV -sputum culture pending -DuoNebs prn SOB/wheeze -continue to monitor for clinical deterioration -CBC in AM -nasal swab for mrsa DVT Prophylaxis: SCD - Time Spent with Patient Total time spent is greater than 50% in coordination of care (as documented) at patient's floor/unit and/or counseling patient: less than 15 minutes Plan of Care Discussed with: patient Internal Medicine: Result - Labs CBC & Chem 7: 05/24/18 04:00 05/24/18 04:00 Labs: Short CBC 05/23/18 05/24/18 Range/Units 08:01 04:00 WBC 10.0 (4.3-11.1) K/mcL Hgb 9.6 L 9.5 L (12.9-16.9) g/dL Hct 29.6 L 29.1 L (37.5-50.1) % Plt Count 251 (140-400) K/mcL Neutrophils # 7.5 (1.6-8.9) K/mcL BMP 05/24/18 04:00 Sodium 136 Potassium 3.7 Chloride 105 Carbon Dioxide 25 BUN 10 Creatinine 0.69 L Glucose 108 H Calcium 7.9 L Liver Function 05/24/18 Range/Units 04:00 Total Bilirubin 0.6 (0.3-1.0) mg/dL AST 43 H (13-39) Units/L ALT 102 H (7-52) Units/L Alkaline Phosphatase 50 (34-104) Units/L Albumin 2.5 L (3.5-5.7) g/dL - ABG Interpretation ABG results: PT/INR, D-dimer PT 12.8 Seconds (9.4-12.1) H 05/19/18 03:45 - Impressions Impressions Chest X-Ray 05/23/18 15:14 IMPRESSION: New patchy opacities within the left lung suspicious for pneumonia. D/ / 05/23/2018 15:55:03 Misty Juarez MD / [email or web address] Interpreting Provider: Misty Juarez MD Consult Discharge Plan - Plan Referrals: Syeda Dubose CNP [Primary Care Provider] - 05/29/18 10:20 am Jason Williamson MD [Partnered Physician] - 06/06/18 1:50 pm <Elisa Clayton - Last Filed: 05/24/18 11:48> Hospitalist Progress Note - Encounter Date of Encounter: 05/24/18 - Exam Vitals: Temp Pulse Resp BP Pulse Ox 98.1 F 62 16 124/65 96 05/24/18 11:04 05/24/18 11:04 05/24/18 11:04 05/24/18 11:04 05/24/18 11:04 - Assessment and Plan (1) Hypertension Current Visit: No Status: Chronic (2) CAD (coronary artery disease) Current Visit: No Status: Chronic (3) GI bleed Current Visit: Yes Status: Acute (4) Urinary tract infection Current Visit: Yes Status: Acute (5) Hyperlipidemia Current Visit: No Status: Chronic (6) COPD (chronic obstructive pulmonary disease) Current Visit: No Status: Chronic (7) Protein calorie malnutrition Current Visit: Yes Status: Acute (8) Hypokalemia Current Visit: Yes Status: Resolved (9) Pneumonia Current Visit: Yes Status: Acute - Time Spent with Patient Total time spent is greater than 50% in coordination of care (as documented) at patient's floor/unit and/or counseling patient: Internal Medicine: Result - Labs CBC & Chem 7: 05/24/18 04:00 05/24/18 04:00 Labs: Short CBC 05/24/18 Range/Units 04:00 WBC 10.0 (4.3-11.1) K/mcL Hgb 9.5 L (12.9-16.9) g/dL Hct 29.1 L (37.5-50.1) % Plt Count 251 (140-400) K/mcL Neutrophils # 7.5 (1.6-8.9) K/mcL BMP 05/24/18 04:00 Sodium 136 Potassium 3.7 Chloride 105 Carbon Dioxide 25 BUN 10 Creatinine 0.69 L Glucose 108 H Calcium 7.9 L Liver Function 05/24/18 Range/Units 04:00 Total Bilirubin 0.6 (0.3-1.0) mg/dL AST 43 H (13-39) Units/L ALT 102 H (7-52) Units/L Alkaline Phosphatase 50 (34-104) Units/L Albumin 2.5 L (3.5-5.7) g/dL - ABG Interpretation ABG results: PT/INR, D-dimer PT 12.8 Seconds (9.4-12.1) H 05/19/18 03:45 - Impressions Impressions Chest X-Ray 05/23/18 15:14 IMPRESSION: New patchy opacities within the left lung suspicious for pneumonia. D/ / 05/23/2018 15:55:03 Misty Juarez MD / [email or web address] Interpreting Provider: Misty Juarez MD - Attending Attestation I have seen and examined this pt independently. I have discussed with resident physician Dr. Meneses regarding the management plan. Agree with the documentation. <Carlos Meneses - Last Filed: 05/24/18 10:48> (1) GI bleed Qualifiers: GI bleed type/associated pathology: gastrointestinal hemorrhage with hematemesis Qualified Code(s): K92.0 - Hematemesis (2) Hypertension Qualifiers: Hypertension type: essential hypertension Qualified Code(s): I10 - Essential (primary) hypertension (3) CAD (coronary artery disease) Qualifiers: Coronary Disease-Associated Artery/Lesion type: [place] artery [place] vs. transplanted heart: [place] heart Associated angina: without angina Qualified Code(s): I25.10 - Atherosclerotic heart disease of [place] coronary artery without angina pectoris (4) Urinary tract infection Qualifiers: Urinary tract infection type: site unspecified Hematuria presence: without hematuria Qualified Code(s): N39.0 - Urinary tract infection, site not specified (5) Hyperlipidemia Qualifiers: Hyperlipidemia type: unspecified Qualified Code(s): E78.5 - Hyperlipidemia, unspecified (6) COPD (chronic obstructive pulmonary disease) Qualifiers: COPD type: chronic bronchitis Chronic bronchitis type: unspecified Qualified Code(s): J42 - Unspecified chronic bronchitis (7) Protein calorie malnutrition Qualifiers: Protein-calorie malnutrition severity: unspecified severity Qualified Code(s) : E46 - Unspecified protein-calorie malnutrition (9) Pneumonia Qualifiers: Pneumonia type: due to unspecified organism Laterality: left Lung location: unspecified part of lung Qualified Code(s): J18.9 - Pneumonia, unspecified organism <Elisa Clayton - Last Filed: 05/24/18 11:48> (1) Hypertension Qualifiers: Hypertension type: essential hypertension Qualified Code(s): I10 - Essential (primary) hypertension (2) CAD (coronary artery disease) Qualifiers: Coronary Disease-Associated Artery/Lesion type: [place] artery [place] vs. transplanted heart: [place] heart Associated angina: without angina Qualified Code(s): I25.10 - Atherosclerotic heart disease of [place] coronary artery without angina pectoris (3) GI bleed Qualifiers: GI bleed type/associated pathology: gastrointestinal hemorrhage with hematemesis Qualified Code(s): K92.0 - Hematemesis (4) Urinary tract infection Qualifiers: Urinary tract infection type: site unspecified Hematuria presence: without hematuria Qualified Code(s): N39.0 - Urinary tract infection, site not specified (5) Hyperlipidemia Qualifiers: Hyperlipidemia type: unspecified Qualified Code(s): E78.5 - Hyperlipidemia, unspecified (6) COPD (chronic obstructive pulmonary disease) Qualifiers: COPD type: chronic bronchitis Chronic bronchitis type: unspecified Qualified Code(s): J42 - Unspecified chronic bronchitis (7) Protein calorie malnutrition Qualifiers: Protein-calorie malnutrition severity: unspecified severity Qualified Code(s) : E46 - Unspecified protein-calorie malnutrition (9) Pneumonia Qualifiers: Pneumonia type: due to unspecified organism Laterality: left Lung location: unspecified part of lung Qualified Code(s): J18.9 - Pneumonia, unspecified organism
[2018-05-24] MEDS ORDERED: Nitroglycerin 0.4 MG TAB.SUBL SL PRN (10:28)
[2018-05-24] MEDS ORDERED: Aminoglycoside Consult 1 EACH MC ONE (15:33)
[2018-05-24] MEDS: *HR* LORazepam 0.5 MG TABLET PO PRN (21:45)
[2018-05-25] MEDS: Piperacillin/Tazobactam 3.375 GM in 0.9 % Sodium Chloride Mini Bag 100 ML IVPB SCH ×2 (00:08→15:12)
[2018-05-25 05:00] LABS: Basophils % 0.9 %; Eosinophils # 0.3 K/mcL (0.0-0.6); Hematocrit 28.6 % (37.5-50.1); Hemoglobin 9.2 g/dL (12.9-16.9); Immature Granulocytes % 0.2 % (0-4); Lymphocytes # 1.7 K/mcL (0.6-4.6); Lymphocytes % 38.2 %; Mean Corpuscular HGB Conc 32.2 g/dL (31.6-35.5); Mean Corpuscular Hemoglobin 27.8 pg (28.0-33.3); Mean Corpuscular Volume 86.4 fL (83.0-100.0); Mean Platelet Volume 9.8 fL (9.4-12.4); Monocytes # 0.4 K/mcL (0.0-1.3); Monocytes % 8.5 %; Neutrophils # 2.1 K/mcL (1.6-8.9); Platelet Count 251 K/mcL (140-400); Red Blood Count 3.31 M/mcL (4.19-5.50); Red Cell Distribution Width 16.2 % (11.5-14.5); Segmented Neutrophils % 46.2 %
[2018-05-25 05:08] LABS: Alanine Aminotransferase 76 Units/L (7-52); Albumin 2.4 g/dL (3.5-5.7); Albumin/Globulin Ratio 1.1 (1.1-2.2); Alkaline Phosphatase 43 Units/L (34-104); Aspartate Amino Transferase 25 Units/L (13-39); BUN/Creatinine Ratio 15 (6-26); Bilirubin,Total 0.5 mg/dL (0.3-1.0); Blood Urea Nitrogen 12 mg/dL (8-23); Carbon Dioxide 26 mEq/L (23-29); Chloride 108 mEq/L (98-107); Globulin 2.1 g/dL (2.4-3.5); Glucose 94 mg/dL (70-105); Osmolality,Calculated 288 (280-300); Potassium 3.9 mEq/L (3.5-5.1); Sodium 139 mEq/L (136-145); Total Protein 4.5 g/dL (6.4-8.9); eGFR For Non-African Americans > 60 (> 60)
[2018-05-25] MEDS: Pantoprazole 40 MG VIAL IVP SCH (06:24)
[2018-05-25] MEDS: Isosorbide MONOnitrate (24 HR) 30 MG TAB.ER.24H PO SCH (08:17)
[2018-05-25] MEDS: Lisinopril 20 MG TABLET PO SCH (08:17)
[2018-05-25] MEDS: amLODIPine 5 MG TABLET PO SCH (08:18)
--- NOTE | 2018-05-25 08:34 | Internal Med Progress Note ---
<Carlos Meneses S - Last Filed: 05/25/18 10:50> Hospitalist Progress Note - Encounter Date of Encounter: 05/25/18 Time of Encounter: 06:40 - Subjective Interval History: Pt is seen at the bedside. 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 The pt states that he came to the hospital after feeling very weak and having multiple episodes of hemetemesis assoc with abdmominal pain. He was transferred to ICU on admission and go 4U of pRBC total. He has been on the floor since yesterday. Pt re-scoped 05/23/18 -circumferential granularity at anastomosis with some thickened gastric folds but no mass -single 15mm mucosal nodule with localized distribution found at esophageal anastomosis, 32 cm from incisiors -bx taken with cold forceps for histology -severe erosive/ulcerated esophagiitis in lower esophagus at and above the anastomosis exending for about 5cm proximally, very friable Pt desaturated after EGD in PACU to the 80's and was tx with duonebs and improved -beside CXR showed new left infiltrate, -pt told attending he started to have a productive cough that morning The pt has no complaints of chest pain or SOB this morning. He denies cough. No complaints of any abd pain this morning. -he denies dyspnea, hemetemesis, dysuria, edema Nurse confirms all of the above and states that the pt had no overnight events, episodes of hemetemesis - Exam Vitals: Temp Pulse Resp BP Pulse Ox 97.7 F 58 14 102/60 97 05/25/18 06:52 05/25/18 06:52 05/25/18 05:01 05/25/18 06:52 05/25/18 06:52 Exam: GEN: No acute distress, A&O3 HEAD: Atraumatic, normocephalic HEART: RRR, normal S1 and S2,no MRG LUNGS: decreased breath sounds B/L, no wheezes, rhonchi, or crackles ABD: Soft, nondistended, Nontender, no rebound or guarding EXT: no edema NEURO: No focal deficits - Assessment and Plan (1) GI bleed Current Visit: Yes Status: Acute Assessment and Plan: Pt admitted with hemetemesis and abdominal pain Hemoglobin at admission: 7.2 Hemoglobin today: 9.2 EGD on 05/18/18 - distal esophageal ulcer -injected with epinephrine -possible malignant tumor at the GE junction -gastritis, C/I to bx Pt re-scoped yesterday (05/24/18) -circumferential granularit t anastomosis with some thickened gastric folds but no mass -single 15mm mucosal nodule with localized distrubution found at esophageal anastomosis, 32 cm from incisiors -bx taken with cold forceps for histology -severe erosive/ulcerated esophagiitis in lower esophagus at and above the anastomosis exending for about 5cm proximally, very friable Pt desaturated in PACU to the 80's and was tx with duonebs and improved -beside CXR showed new left infiltrate, -pt told attending he started to have a productive cough that morning -MRSA screening negative Pt reports no vomiting overnight, nurse confirms. FOBT (+) -CEA <4.6 PT 12.8, INR 1.1 Plan: -GI recommends to continue PPI BID, carafate QID and full liquid diet -hemoglobin stable, check h&h in AM -transfuse if hgb <8 -Zofran and phenergan prn nausea -discontinue protonix 40mg ivp ---> changed to Omeprazole PO 40mg BID -continue carafate 1g PO QID -not restarting plavix due to bleeding risk -advance diet as tolerated to regular diet -d/c Vanc/Zosyn ---> started PO Levaquin 750mg PO -plan to d/c monday or monday if pt is stable on PO Levaquin (2) Hypertension Current Visit: No Status: Chronic Assessment and Plan: BP today 102/60 -adequately controlled -pt is on Zestril 40mg PO daily -continue home medications -add hydralazine 10mg IVP for SBP >160 (3) CAD (coronary artery disease) Current Visit: No Status: Chronic Assessment and Plan: Pt has hx of CAD -PCI x 4 -he is on Plavix 75mg PO daily, which has since been held 2/2 to acute GIB -pt is a high risk pt and is at risk for major bleeding again Plan: -benefits do not outweigh the adverse effects of medication usage -disconitnue Plavix -Continue pt with Lisinopril 40mg, Zocor 10mg, Isosorbide 30mg (4) Hyperlipidemia Current Visit: No Status: Chronic (5) COPD (chronic obstructive pulmonary disease) Current Visit: No Status: Chronic Assessment and Plan: Pt is not requiring oxygen, no complaints of SOB/cough/wheeze -continue symbicort -O2 sat 95% on RA (6) Protein calorie malnutrition Current Visit: Yes Status: Chronic Assessment and Plan: Prealbumin 20.5 -BMI 20.1 -pt is currently on full liquid diet, tolerating -ensure TID -PTOT consulted (7) Pneumonia Current Visit: Yes Status: Acute Assessment and Plan: Pt desaturated in PACU to the 80's and was tx with duonebs and improved after EGD (05/23/18) -beside CXR showed new left infiltrate, -pt told attending he started to have a productive cough that morning Pt denies cough or SOB this morning. Denies fevers/chills. Pt afebrile WBC count of 4.5 MRSA swab negative Plan: -stopped on vancomycin/zosyn IV ---> now on Levaquin 750mg PO. Will d/c on this tomorrow if hemoglobin continues to be stable -sputum culture pending -DuoNebs prn SOB/wheeze -continue to monitor for clinical deterioration -H&H in AM - Time Spent with Patient Total time spent is greater than 50% in coordination of care (as documented) at patient's floor/unit and/or counseling patient: less than 15 minutes Plan of Care Discussed with: patient Internal Medicine: Result - Labs CBC & Chem 7: 05/25/18 04:00 05/25/18 04:00 Labs: Short CBC 05/25/18 Range/Units 04:00 WBC 4.5 D (4.3-11.1) K/mcL Hgb 9.2 L (12.9-16.9) g/dL Hct 28.6 L (37.5-50.1) % Plt Count 251 (140-400) K/mcL Neutrophils # 2.1 (1.6-8.9) K/mcL BMP 05/25/18 04:00 Sodium 139 Potassium 3.9 Chloride 108 H Carbon Dioxide 26 BUN 12 Creatinine 0.80 Glucose 94 Calcium 8.0 L Liver Function 05/25/18 Range/Units 04:00 Total Bilirubin 0.5 (0.3-1.0) mg/dL AST 25 (13-39) Units/L ALT 76 H (7-52) Units/L Alkaline Phosphatase 43 (34-104) Units/L Albumin 2.4 L (3.5-5.7) g/dL - ABG Interpretation ABG results: PT/INR, D-dimer PT 12.8 Seconds (9.4-12.1) H 05/19/18 03:45 Consult Discharge Plan - Plan Referrals: Syeda Dubose CNP [Primary Care Provider] - 05/29/18 10:20 am Jason Williamson MD [Partnered Physician] - 06/06/18 1:50 pm <Elisa Clayton - Last Filed: 05/25/18 13:08> Hospitalist Progress Note - Encounter Date of Encounter: 05/25/18 - Exam Vitals: Temp Pulse Resp BP Pulse Ox 98.3 F 58 14 134/77 97 05/25/18 10:54 05/25/18 06:52 05/25/18 05:01 05/25/18 10:54 05/25/18 06:52 - Assessment and Plan (1) Hypertension Current Visit: No Status: Chronic (2) CAD (coronary artery disease) Current Visit: No Status: Chronic (3) GI bleed Current Visit: Yes Status: Acute (4) Hyperlipidemia Current Visit: No Status: Chronic (5) COPD (chronic obstructive pulmonary disease) Current Visit: No Status: Chronic (6) Protein calorie malnutrition Current Visit: Yes Status: Chronic (7) Pneumonia Current Visit: Yes Status: Acute - Time Spent with Patient Total time spent is greater than 50% in coordination of care (as documented) at patient's floor/unit and/or counseling patient: Internal Medicine: Result - Labs CBC & Chem 7: 05/25/18 04:00 05/25/18 04:00 Labs: Short CBC 05/25/18 Range/Units 04:00 WBC 4.5 D (4.3-11.1) K/mcL Hgb 9.2 L (12.9-16.9) g/dL Hct 28.6 L (37.5-50.1) % Plt Count 251 (140-400) K/mcL Neutrophils # 2.1 (1.6-8.9) K/mcL BMP 05/25/18 04:00 Sodium 139 Potassium 3.9 Chloride 108 H Carbon Dioxide 26 BUN 12 Creatinine 0.80 Glucose 94 Calcium 8.0 L Liver Function 05/25/18 Range/Units 04:00 Total Bilirubin 0.5 (0.3-1.0) mg/dL AST 25 (13-39) Units/L ALT 76 H (7-52) Units/L Alkaline Phosphatase 43 (34-104) Units/L Albumin 2.4 L (3.5-5.7) g/dL - ABG Interpretation ABG results: PT/INR, D-dimer PT 12.8 Seconds (9.4-12.1) H 05/19/18 03:45 - Attending Attestation I have seen and examined this pt independently. I have discussed with resident physician Dr Meneses regarding the management plan. Agree with the documentation. <Carlos Meneses S - Last Filed: 05/25/18 10:50> (1) GI bleed Qualifiers: GI bleed type/associated pathology: gastrointestinal hemorrhage with hematemesis Qualified Code(s): K92.0 - Hematemesis (2) Hypertension Qualifiers: Hypertension type: essential hypertension Qualified Code(s): I10 - Essential (primary) hypertension (3) CAD (coronary artery disease) Qualifiers: Coronary Disease-Associated Artery/Lesion type: [place] artery [place] vs. transplanted heart: [place] heart Associated angina: without angina Qualified Code(s): I25.10 - Atherosclerotic heart disease of [place] coronary artery without angina pectoris (4) Hyperlipidemia Qualifiers: Hyperlipidemia type: unspecified Qualified Code(s): E78.5 - Hyperlipidemia, unspecified (5) COPD (chronic obstructive pulmonary disease) Qualifiers: COPD type: chronic bronchitis Chronic bronchitis type: unspecified Qualified Code(s): J42 - Unspecified chronic bronchitis (6) Protein calorie malnutrition Qualifiers: Protein-calorie malnutrition severity: unspecified severity Qualified Code(s) : E46 - Unspecified protein-calorie malnutrition (7) Pneumonia Qualifiers: Pneumonia type: due to unspecified organism Laterality: left Lung location: unspecified part of lung Qualified Code(s): J18.9 - Pneumonia, unspecified organism <Elisa Clayton - Last Filed: 05/25/18 13:08> (1) Hypertension Qualifiers: Hypertension type: essential hypertension Qualified Code(s): I10 - Essential (primary) hypertension (2) CAD (coronary artery disease) Qualifiers: Coronary Disease-Associated Artery/Lesion type: [place] artery [place] vs. transplanted heart: [place] heart Associated angina: without angina Qualified Code(s): I25.10 - Atherosclerotic heart disease of [place] coronary artery without angina pectoris (3) GI bleed Qualifiers: GI bleed type/associated pathology: gastrointestinal hemorrhage with hematemesis Qualified Code(s): K92.0 - Hematemesis (4) Hyperlipidemia Qualifiers: Hyperlipidemia type: unspecified Qualified Code(s): E78.5 - Hyperlipidemia, unspecified (5) COPD (chronic obstructive pulmonary disease) Qualifiers: COPD type: chronic bronchitis Chronic bronchitis type: unspecified Qualified Code(s): J42 - Unspecified chronic bronchitis (6) Protein calorie malnutrition Qualifiers: Protein-calorie malnutrition severity: unspecified severity Qualified Code(s) : E46 - Unspecified protein-calorie malnutrition (7) Pneumonia Qualifiers: Pneumonia type: due to unspecified organism Laterality: left Lung location: unspecified part of lung Qualified Code(s): J18.9 - Pneumonia, unspecified organism
[2018-05-25] MEDS ORDERED: Ampicillin/Sulbactam 3,000 MG in 0.9 % Sodium Chloride Mini Bag 100 ML IVPB SCH (12:00)
[2018-05-25] MEDS: levoFLOXacin 750 MG TABLET PO SCH (12:03)
[2018-05-25 13:34] LABS: Hematocrit 32.4 % (37.5-50.1); Hemoglobin 10.2 g/dL (12.9-16.9)
--- NOTE | 2018-05-25 13:52 | Event Note ---
Date of Encounter: 05/25/18 Time of Encounter: 13:50 Paged that pt was feeling lightheaded and dizzy. HR in the 110-120's. Pt reports "Feeling lousy" and having trouble breathing -pt is tacypnic in the room -tacycardic with systolic murmur -negative malu sign, no calf swelling -pt reprots no chest pain -got stat H&H with repeat in 6hrs -stat CXR showed infiltrates, waiting for radioloy to read -orthostatics performed, pt did NOT have drop >20mmHg systolic/>10mmHg diastolic going from laying to sitting
[2018-05-25 19:53] LABS: Hematocrit 29.7 % (37.5-50.1); Hemoglobin 9.3 g/dL (12.9-16.9)
[2018-05-25] MEDS: Budesonide/Formoterol 80/4.5 MDI IH SCH (20:12)
[2018-05-25] MEDS: Ondansetron ODT 4 MG TAB.RAPDIS SL PRN (21:53)
[2018-05-25] MEDS: *HR* LORazepam 0.5 MG TABLET PO PRN (21:54)
[2018-05-26 06:38] LABS: Hematocrit 29.3 % (37.5-50.1); Hemoglobin 9.2 g/dL (12.9-16.9)
[2018-05-26 06:45] VITALS: BP 130/77
[2018-05-26] MEDS: Budesonide/Formoterol 80/4.5 MDI IH SCH (07:46)
[2018-05-26] MEDS: Isosorbide MONOnitrate (24 HR) 30 MG TAB.ER.24H PO SCH (08:02)
[2018-05-26] MEDS: levoFLOXacin 750 MG TABLET PO SCH (08:02)
[2018-05-26] MEDS: amLODIPine 5 MG TABLET PO SCH (08:03)
[2018-05-26] MEDS: Lisinopril 20 MG TABLET PO SCH (08:03)
--- NOTE | 2018-05-26 08:54 | Discharge Summary ---
<Carlos Meneses S - Last Filed: 05/26/18 08:49> - NOTES TO OUTPATIENT PROVIDER Notes to Outpatient Provider: Follow up with PCP on hemoglobin levels. Follow up if pt is tolerating PPI and carafate. Follow up on if pt is tolerating diet. Orders not resulted at time of discharge: Pending orders 05/23/18 16:40 Culture,Sputum with Gram Stain [RM] Stat Date of Encounter: 05/26/18 Time of Encounter: 08:45 - Discharge Diagnosis (1) GI bleed Priority: Primary Status: Resolved Qualifiers: GI bleed type/associated pathology: gastrointestinal hemorrhage with hematemesis Qualified Code(s): K92.0 - Hematemesis (2) Hypertension Priority: Secondary Status: Chronic Qualifiers: Hypertension type: essential hypertension Qualified Code(s): I10 - Essential (primary) hypertension (3) CAD (coronary artery disease) Priority: Secondary Status: Chronic Qualifiers: Coronary Disease-Associated Artery/Lesion type: [place] artery [place] vs. transplanted heart: [place] heart Associated angina: without angina Qualified Code(s): I25.10 - Atherosclerotic heart disease of [place] coronary artery without angina pectoris (4) Hyperlipidemia Priority: Secondary Status: Chronic Qualifiers: Hyperlipidemia type: unspecified Qualified Code(s): E78.5 - Hyperlipidemia , unspecified (5) COPD (chronic obstructive pulmonary disease) Priority: Secondary Status: Chronic Qualifiers: COPD type: chronic bronchitis Chronic bronchitis type: unspecified Qualified Code(s): J42 - Unspecified chronic bronchitis (6) Protein calorie malnutrition Priority: Secondary Status: Chronic Qualifiers: Protein-calorie malnutrition severity: unspecified severity Qualified Code( s): E46 - Unspecified protein-calorie malnutrition (7) Pneumonia Priority: Secondary Status: Acute Qualifiers: Pneumonia type: due to unspecified organism Laterality: left Lung location: unspecified part of lung Qualified Code(s): J18.9 - Pneumonia, unspecified organism Hospital course: Mr. Almazan is a 77 year old male admitted on 05/18 for hemetemesis. 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 The pt's stay was complicated by ICU placement. He was given a total of 4U pRBC. Pt couldn't have biopsies taken during procedure due to plavix use. After transfer to floor and stabilization, he had plavix wash out and GI planned to rescope him. Pt was then re-scoped 05/23/18 -circumferential granularity at anastomosis with some thickened gastric folds but no mass -single 15mm mucosal nodule with localized distribution found at esophageal anastomosis, 32 cm from incisiors -bx taken with cold forceps for histology -severe erosive/ulcerated esophagiitis in lower esophagus at and above the anastomosis exending for about 5cm proximally, very friable Pt desaturated after EGD in PACU to the 80's and was tx with duonebs and improved -beside CXR showed new left infiltrate, -pt told attending he started to have a productive cough that morning The pt was treated with Vancomcin and Zosyn IV. He was then transferred t o PO Levaquin and tolerated this. He began to improve clinicall after 2 days treatment. The pt is stable for discharge. I talked to him about care home palcement or home health services, which he denies wanting -the pt states family will be picking him up toda Will discharge the pt on 3 carvajal of PO Levaquin 750mg 1x daily. Also will discharge the pt on Carafate QID and Omeprazole BID, as per GI recommendations. Discharge discussed with: patient, nurse Time spent discussing smoking cessation with patient: 3 to 10 minutes - Time Spent with Patient Total time spent providing and/or coordinating discharge services: Less than 30 minutes - Discharge Medications Prescriptions: levoFLOXacin [Levaquin] 750 mg PO DAILY 3 Days #3 tablet Omeprazole [PriLOSEC] 40 mg PO BID 30 Days #60 capsule. Sucralfate [Carafate] 1 gm PO QID 30 Days #120 [facility] Home Medications: Isosorbide MONOnitrate [Isosorbide Mononitrate] 30 mg PO DAILY 06/09/15 [History ] Simvastatin [Zocor] 10 mg PO DAILY 02/05/16 [History] ALPRAZolam [Xanax 0.25 MG Tablet] 0.25 mg PO TID 06/11/17 [History] Nitroglycerin [Nitrostat] 0.4 mg SL Q5M PRN 06/11/17 [History] Finasteride [Proscar] 5 mg PO DAILY 02/26/18 [History] Lisinopril [Zestril] 40 mg PO DAILY 02/26/18 [History] Metoclopramide HCl 10 mg PO BID 02/26/18 [History] Ranitidine HCl [Zantac] 300 mg PO DAILY 02/26/18 [History] Tamsulosin [Flomax] 0.4 mg PO DAILY 02/26/18 [History] Tizanidine HCl 4 mg PO Q12H PRN 02/26/18 [History] Gabapentin [Neurontin] 100 mg PO TID 03/25/18 [History] Albuterol Sulfate [Ventolin Hfa] 2 puff IH Q6H PRN 05/09/18 [History] Ferrous Sulfate [Iron] 325 mg PO DAILY 05/09/18 [History] Fluticasone/Salmeterol [Advair 250-50 Diskus] 1 each IH BID 05/09/18 [History] HYDROcodone/Acet 5/325 mg [[place] 5-325 mg] 1 tab PO Q6H PRN 3 Days #10 tab 05/09 [Rx] Nabumetone [Relafen] 500 mg PO BID 05/18/18 [History] Omeprazole [PriLOSEC] 40 mg PO BID 30 Days #60 capsule. 05/26/18 [Rx] Sucralfate [Carafate] 1 gm PO QID 30 Days #120 udc 05/26/18 [Rx] levoFLOXacin [Levaquin] 750 mg PO DAILY 3 Days #3 tablet 05/26/18 [Rx] Allergies/Adverse Reactions: 3 Allergy/AdvReac Type Severity Reaction Status Date / Time Iodinated Contrast- Oral and Allergy Anaphylaxis Verified 03/25/18 14:46 IV Dye Date of admission: 05/18/18 13:07 Primary care physician: Syeda Dubose CNP Consults: 05/18/18 13:27 PICC Consult [Consult to Invasive Line Access Team] [CONS] Stat Reason for Consult: vasc acces Line Type: Midline 05/18/18 13:55 Consult to Gastroenterology [CONS] Routine Consulting Provider: [facility]astro[facility] Reason for Consult: GI bleed Call Completed: Yes 05/18/18 15:00 Consult to Invasive Line Access Team [CONS] Routine Reason for Consult: limited vascular access Line Type: EPIV 05/21/18 21:28 PT [Consult to Physical Therapy] [CONS] Routine Comment: Evaluate, develop and implement POC Reason for Consult: Recent falls at home. Gait evaluation. Does patient have active BEDREST order?: No Is patient medically & hemodynamically stable?: Yes Discharging clinician: Carlos Meneses - Constitutional Vitals: Temp Pulse Resp BP Pulse Ox 98.2 F 60 16 130/77 96 05/26/18 06:42 05/26/18 06:42 05/26/18 07:46 05/26/18 06:42 05/26/18 07:46 Exam: GEN: No acute distress, A&O3 HEAD: Atraumatic, normocephalic HEART: RRR, normal S1 and S2,no MRG LUNGS: decreased breath sounds B/L, no wheezes, rhonchi, or crackles ABD: Soft, nondistended, Nontender, no rebound or guarding EXT: no edema NEURO: No focal deficits - Patient Status Disposition: Home, Self-Care Condition: Good Overall status at discharge: patient is progressing back to baseline - Discharge Instructions Instructions: Levofloxacin (By mouth), Gastrointestinal Bleeding (GEN) Follow Up With: Syeda Dubose CNP [Primary Care Provider] - 05/29/18 10:20 am Jason Williamson MD [Partnered Physician] - 06/06/18 1:50 pm - Diet and Activity Activity: increase activity as tolerated Diet: advance to your usual diet - VTE Documentation of Mechanical Device: Intermittent pneumatic compression device <Elisa Clayton - Last Filed: 05/26/18 11:49> Orders not resulted at time of discharge: Pending orders 05/23/18 16:40 Culture,Sputum with Gram Stain [RM] Stat Date of Encounter: 05/26/18 - Discharge Diagnosis (1) Hypertension Status: Chronic Qualifiers: Hypertension type: essential hypertension Qualified Code(s): I10 - Essential (primary) hypertension (2) CAD (coronary artery disease) Status: Chronic Qualifiers: Coronary Disease-Associated Artery/Lesion type: [place] artery [place] vs. transplanted heart: [place] heart Associated angina: without angina Qualified Code(s): I25.10 - Atherosclerotic heart disease of [place] coronary artery without angina pectoris (3) GI bleed Status: Resolved Qualifiers: GI bleed type/associated pathology: gastrointestinal hemorrhage with hematemesis Qualified Code(s): K92.0 - Hematemesis (4) Hyperlipidemia Status: Chronic Qualifiers: Hyperlipidemia type: unspecified Qualified Code(s): E78.5 - Hyperlipidemia , unspecified (5) COPD (chronic obstructive pulmonary disease) Status: Chronic Qualifiers: COPD type: chronic bronchitis Chronic bronchitis type: unspecified Qualified Code(s): J42 - Unspecified chronic bronchitis (6) Protein calorie malnutrition Status: Chronic Qualifiers: Protein-calorie malnutrition severity: unspecified severity Qualified Code( s): E46 - Unspecified protein-calorie malnutrition (7) Pneumonia Status: Acute Qualifiers: Pneumonia type: due to unspecified organism Laterality: left Lung location: unspecified part of lung Qualified Code(s): J18.9 - Pneumonia, unspecified organism Hospital course: Mr. Almazan is a 77 year old male - Time Spent with Patient Total time spent providing and/or coordinating discharge services: Date of admission: 05/18/18 13:07 Primary care physician: Syeda Dubose CNP Consults: 05/18/18 13:27 PICC Consult [Consult to Invasive Line Access Team] [CONS] Stat Reason for Consult: vasc acces Line Type: Midline 05/18/18 13:55 Consult to Gastroenterology [CONS] Routine Consulting Provider: [facility] [place] Reason for Consult: GI bleed Call Completed: Yes 05/18/18 15:00 Consult to Invasive Line Access Team [CONS] Routine Reason for Consult: limited vascular access Line Type: EPIV 05/21/18 21:28 PT [Consult to Physical Therapy] [CONS] Routine Comment: Evaluate, develop and implement POC Reason for Consult: Recent falls at home. Gait evaluation. Does patient have active BEDREST order?: No Is patient medically & hemodynamically stable?: Yes - Constitutional Vitals: Temp Pulse Resp BP Pulse Ox 98.2 F 60 16 130/77 96 05/26/18 06:42 05/26/18 06:42 05/26/18 07:46 05/26/18 06:42 05/26/18 07:46 - Patient Status Overall status at discharge: patient is progressing back to baseline - Diet and Activity Activity: increase activity as tolerated Diet: advance to your usual diet - Attending Attestation I have seen and examined this patient independently. I have discussed with resident physician Dr. Meneses regarding discharge and follow-up plan. Agree with the documentation.
--- NOTE | 2018-05-28 13:41 | Electrocardiograph Report ---
[address] [place], [place] [address] Test Date: 2018-05-23 Pat Name: Alonzo Almazan Department: 101 Room: 2NE27 Gender: M [employer]: : 1940 Requested By: Elisa Clayton Order Number: [id number] Reading MD: Kan Rajan Measurements Intervals [place] Rate: 60 P: 7 MO: 152 QRS: -44 QRSD: 133 T: 104 QT: 420 QTc: 421 Interpretive Statements SINUS RHYTHM MARKED LEFT AXIS DEVIATION INTRAVENTRICULAR CONDUCTION DELAY LEFT VENTRICULAR HYPERTROPHY AND ST-T CHANGE LATERAL MYOCARDIAL INFARCTION, OF INDETERMINATE AGE Electronically Signed On 05-28-2018 13:39:20 EDT by Kan Rajan
== END 2018-05-26 15:34 | disposition home or self-care (01) | DRG 380 ==
LOC: EMEROOARM 10:03 → ICNU 13:07 → SUATTDRO 13:07 → ICNU 14:20 → 2NENU 05-19 16:04
PROVIDERS: ADMIT Internal Medicine Pulmonary Disease; ATTEND Internal Medicine
PROC: ENDOEBX (2018-05-23 14:00)

== ENCOUNTER 2019-01-11 07:49 | Observation (INO) ==
[2019-01-11] MEDS ORDERED: Famotidine 20 MG/2 ML VIAL IVP ONE (08:11)
[2019-01-11] MEDS ORDERED: Acetaminophen IV 1,000 MG/100 ML INFUS..BTL IVPB ONE (08:12)
--- NOTE | 2019-01-11 08:43 | Anesthesia Evaluation PreOp ---
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 ANALYST History: CVA Other Medical History: GERD, Other (Depression Anxiety) Anesthesia History: No Prior Anesthetic Complications Alcohol Use: none Drug use: none Medications and Allergies Isosorbide MONOnitrate [Isosorbide Mononitrate] 30 mg PO DAILY 06/09/15 [History] Simvastatin [Zocor] 10 mg PO DAILY 02/05/16 [History] ALPRAZolam [Xanax 0.25 MG Tablet] 0.25 mg PO TID 06/11/17 [History] Nitroglycerin [Nitrostat] 0.4 mg SL Q5M PRN 06/11/17 [History] Finasteride [Proscar] 5 mg PO DAILY 02/26/18 [History] Lisinopril [Zestril] 40 mg PO DAILY 02/26/18 [History] Metoclopramide HCl 10 mg PO BID 02/26/18 [History] Ranitidine HCl [Zantac] 300 mg PO DAILY 02/26/18 [History] Tamsulosin [Flomax] 0.4 mg PO DAILY 02/26/18 [History] Tizanidine HCl 4 mg PO Q12H PRN 02/26/18 [History] Gabapentin [Neurontin] 100 mg PO TID 03/25/18 [History] Albuterol Sulfate [Ventolin Hfa] 2 puff IH Q6H PRN 05/09/18 [History] Ferrous Sulfate [Iron] 325 mg PO DAILY 05/09/18 [History] Fluticasone/Salmeterol [Advair 250-50 Diskus] 1 each IH BID 05/09/18 [History] HYDROcodone/Acet 5/325 mg [[place] 5-325 mg] 1 tab PO Q6H PRN 3 Days #10 tab 05/09/18 [Rx] Nabumetone [Relafen] 500 mg PO BID 05/18/18 [History] Omeprazole [PriLOSEC] 40 mg PO BID 30 Days #60 capsule. 05/26/18 [Rx] Sucralfate [Carafate] 1 gm PO QID 30 Days #120 udc 05/26/18 [Rx] Allergy/AdvReac Type Severity Reaction Status Date / Time Iodinated Contrast- Oral and Allergy Anaphylaxis Verified 07/03/18 11:22 IV Dye - Meds/Allergy Pre-op Review Medications Reviewed: Yes Allergies Reviewed: Yes Beta Blockers on Current Med List: No Anesthesia Results - Labs Laboratory Tests 01/08/19 01/08/19 10:58 10:58 Hgb 12.0 L Hct 37.4 L Plt Count 217 Sodium 137 Potassium 4.7 BUN 26 H Creatinine 1.05 - Imaging EKG: report reviewed (SR) Additional studies: ECHO 2016 EF 60%, no pulm htn Anesthesia Exam O2 Sat Height 1.7 m Weight 66.678 kg O2 Sat by Pulse Oximetry 97 Vital Signs Temp Pulse Resp BP Pulse Ox 97.9 F 62 18 155/85 97 01/11/19 08:18 01/11/19 08:18 01/11/19 08:18 01/11/19 08:18 01/11/19 08:18 Height: 5'7 Weight: 147 lbs NPO (# of Hours): MN Pain Scale: 0 - HEENT Pupil (Motor): Pupils equal, EOMI Mallampati: II Teeth: Edentulous Oral Opening: Greater than 3 - SCHEDULING ANALYST LOC: Oriented SCHEDULING ANALYST Motor: Normal RUE, Normal LUE, Normal RLE, Normal LLE, Normal Face SCHEDULING ANALYST Sensory: Normal: RUE, LUE, RLE, LLE, Face - Cardiac Rhythm: Regular Murmur: None JVD: No Carotid Bruit: No - Pulmonary Breath Sounds: bilateral Clear Respiratory Effort: Symmetrical Anesthesia Assess/Plan ASA Score: 3 (HTN CAD Gerd) Level of consciousness: Cooperative, Oriented Anesthetic Plan: General, MAC Autologous Blood: No Monitoring Plan: Standard Monitors Recovery Plan: PACU (Discussed GA, possible MAC, agrees to proceed)
[2019-01-11] MEDS: Ringers Solution, Lactated 1,000 ML IVC SCH ×2 (08:45→14:17)
[2019-01-11] MEDS ORDERED: *HR* Propofol 200 MG/20 ML VIAL IVP ONE (09:02)
[2019-01-11] MEDS ORDERED: Propofol 500 MG/50 ML INFUS..BTL ONE (09:02)
[2019-01-11] MEDS ORDERED: Lidocaine -MPF 2% 2 ML VIAL ONE (09:02)
[2019-01-11] MEDS ORDERED: *HR* Succinylcholine 200 MG/10 ML VIAL IVP ONE (09:30)
--- NOTE | 2019-01-11 09:34 | History & Physical Report ---
Date of Encounter: 01/11/19 Time of Encounter: 09:34 24 Hour HP Update - Instructions Instructions: If the History and Physical is less than 30 days old and was completed prior to A.M. admission and or procedure and has NOT been updated on calendar day of procedure please complete this update prior to performing procedure. - Update Patient reports changes in Medical Condition: Yes Changes in examination, assessment, or condition: No Changes in Medication: No Preop tests/diagnostics Reviewed: Yes Pre-Op MRSA Screen: Negative Surgery Remains Indicated: Yes Consent for Planned Operative Procedure(s) Verified: Yes - Pre-Operative Checklist Preoperative Checklist Indicated: Yes Prophylactic Antibiotic Ordered: No Home Medications Include Beta Warren: Yes Beta Warren Taken Today (Day of Surgery): Yes Beta Warren Taken Yesterday (Day Prior to Surgery): Yes Is VTE Prophylaxis Indicated?: Yes
[2019-01-11] MEDS ORDERED: Ondansetron 4 MG/2 ML VIAL ONE ×2 (10:02→10:35)
[2019-01-11] MEDS ORDERED: Dexamethasone 4 MG/ML VIAL ONE (10:02)
--- NOTE | 2019-01-11 10:18 | Operative Note ---
Date of procedure: 01/11/19 Pre-op diagnosis: esophageal stricture Post-op diagnosis: same Procedure: 10 x 1.8cm esophageal stent Complications: none Anesthesia: GETA Surgeon: Larry Darby Was there an ice cream freezer assistant present: No Estimated blood loss (cc): 0 Specimen: none Condition: stable Disposition: PACU Procedure in Detail: Patient was brought to the operating room placed on the operating table in the supine position. DVT prophylaxis onboard. After general anesthesia esophagoscopy scope was placed identifying the area of stricture under fluoroscopy the area was marked with a paper clip. The guidewire placed over this stricture into the stomach 103 x 18 mm esophageal stent was deployed without difficulty and repeat endoscopy demonstrated the stent to be crossing the stricture and extending approximately 2 cm into the cardia of the stomach. Patient was extubated to recovery room
--- NOTE | 2019-01-11 10:20 | Discharge Summary ---
Addendum entered and electronically signed by Cornelio Meneses MD 01/12/19 09:34: The patient was admitted last night for postanesthesia nausea. He feels better this morning and strongly wants to go home. He will follow-up in [address] Darby. He should call sooner for any difficulties. Original Note: Orders not resulted at time of discharge: Pending orders 01/11/19 XR chest 1V [XR] Routine XR fluoroscopy <1 hr [XR] Routine Date of Encounter: 01/11/19 Time of Encounter: 10:18 - Discharge Diagnosis (1) Benign esophageal stricture Priority: Primary Status: Acute - Hospital Course Hospital course: Mr. Almazan is a 78 year old male - Time Spent with Patient Total time spent providing and/or coordinating discharge services: - Discharge Medications Prescriptions: No Action Simvastatin [Zocor] 10 mg PO DAILY Finasteride [Proscar] 5 mg PO DAILY Lisinopril [Zestril] 40 mg PO DAILY Metoclopramide HCl 10 mg PO DAILY Ranitidine HCl [Zantac] 300 mg PO DAILY Tamsulosin [Flomax] 0.4 mg PO DAILY Tizanidine HCl 4 mg PO Q12H PRN PRN Reason: Muscle Spasm Gabapentin [Neurontin] 100 mg PO TID Clopidogrel [Plavix] 75 mg PO DAILY HYDROcodone/Acet 5/325 mg [[place] 5-325 mg] 1 tab PO 2-3XD PRN PRN Reason: Pain Omeprazole [PriLOSEC] 40 mg PO DAILY Isosorbide MONOnitrate [Isosorbide Mononitrate] 30 mg PO DAILY Nitroglycerin [Nitrostat] 0.4 mg SL Q5M PRN PRN Reason: Chest Pain ALPRAZolam [Xanax 0.25 MG Tablet] 0.25 mg PO TID Fluticasone/Salmeterol [Advair 250-50 Diskus] 1 each IH BID PRN PRN Reason: BREATHING Albuterol Sulfate [Ventolin Hfa] 2 puff IH Q6H PRN PRN Reason: Shortness Of Breath Home Medications: Isosorbide MONOnitrate [Isosorbide Mononitrate] 30 mg PO DAILY 06/09/15 [History] Simvastatin [Zocor] 10 mg PO DAILY 02/05/16 [History] ALPRAZolam [Xanax 0.25 MG Tablet] 0.25 mg PO TID 06/11/17 [History] Nitroglycerin [Nitrostat] 0.4 mg SL Q5M PRN 06/11/17 [History] Finasteride [Proscar] 5 mg PO DAILY 02/26/18 [History] Lisinopril [Zestril] 40 mg PO DAILY 02/26/18 [History] Metoclopramide HCl 10 mg PO DAILY 02/26/18 [History] Ranitidine HCl [Zantac] 300 mg PO DAILY 02/26/18 [History] Tamsulosin [Flomax] 0.4 mg PO DAILY 02/26/18 [History] Tizanidine HCl 4 mg PO Q12H PRN 02/26/18 [History] Gabapentin [Neurontin] 100 mg PO TID 03/25/18 [History] Albuterol Sulfate [Ventolin Hfa] 2 puff IH Q6H PRN 05/09/18 [History] Fluticasone/Salmeterol [Advair 250-50 Diskus] 1 each IH BID PRN 05/09/18 [History] Clopidogrel [Plavix] 75 mg PO DAILY 01/11/19 [History] HYDROcodone/Acet 5/325 mg [[place] 5-325 mg] 1 tab PO 2-3XD PRN 01/11/19 [History] Omeprazole [PriLOSEC] 40 mg PO DAILY 01/11/19 [History] Allergies/Adverse Reactions: Allergy/AdvReac Type Severity Reaction Status Date / Time Iodinated Contrast- Oral and Allergy Anaphylaxis Verified 01/11/19 09:42 IV Dye Primary care physician: Syeda Dubose CNP Consults: none Procedure(s) Performed: esophageal steant Discharging clinician: Larry Darby Anticipated date of discharge: 01/11/19 Physical Examination Vital Signs, Last 4 Hours Temp Pulse Resp BP Pulse Ox 01/11/19 08:18 97.9 F 62 18 155/85 97 General: Conversant, No Apparent Distress HEENT: Atraumatic, Normocephaly Cardiac: Reg Rate and Rhythm, Normal S1 and S2 Lungs: Normal Breath Sounds - Patient Status Disposition: Home, Self-Care Condition: Good Functional capacity at discharge: independent ambulation - Discharge Instructions Follow Up With: Dubose,Syeda L, ALLERGY AND IMMUNOLOGY CHIEF [Primary Care Provider] - - Diet and Activity Activity: resume usual activities as tolerated Diet: other (soft mechanical diet.)
[2019-01-11] MEDS ORDERED: Ondansetron 4 MG/2 ML VIAL IVP ONE (10:33)
[2019-01-11] MEDS ORDERED: Dexamethasone 4 MG/ML VIAL IVP ONE (10:33)
[2019-01-11] MEDS ORDERED: *HR* Morphine 2 MG/ML SYRINGE IVP PRN (10:33)
[2019-01-11] MEDS ORDERED: GI Cocktail 40 ML EACH PO ONE (10:43)
[2019-01-11] MEDS ORDERED: Prochlorperazine 10 MG/2 ML VIAL IVP PRN (13:21)
[2019-01-11] MEDS ORDERED: Scopolamine Patch 1.5 MG PATCH.TD72 TD ONE (13:21)
[2019-01-11] MEDS ORDERED: *HR* HYDROcodone/Acet 5/325 mg TABLET PO PRN (13:23)
[2019-01-11] MEDS ORDERED: *HR* Promethazine 25 MG/ML VIAL IVP PRN (13:29)
[2019-01-11] MEDS ORDERED: *HR* Promethazine 25 MG/ML VIAL ONE (14:12)
--- NOTE | 2019-01-11 14:16 | Anesthesia Evaluation Post Op ---
Date of Encounter: 01/11/19 Time of Encounter: 14:14 - Vital Signs Vital Signs: Last Vital Signs Temp 97.6 F 01/11/19 12:24 Pulse 80 01/11/19 12:50 Resp 16 01/11/19 12:50 BP 156/76 01/11/19 12:50 Pulse Ox 93 01/11/19 12:50 - Lungs Lungs: Clear Ascult./Percussion - Airway Airway: Non-obstructed - Mental Status Mental Status: Alert & Oriented, Answers Appropriately - Pain Pain Scale: 0 Pain Scale used: Numeric (1 - 10) - Nausea Vomiting Nausea Vomiting: Responds to treatment with IV Meds - Hydration Hydration: Ice chips - Discharge PostOp Status: Transfer Patient to floor
[2019-01-11] MEDS: 0.9 % Sodium Chloride 1,000 ML IVC SCH (16:20)
[2019-01-11] MEDS: ALPRAZolam 0.25 MG TABLET PO SCH ×2 (16:20→21:13)
[2019-01-11] MEDS: Gabapentin 100 MG CAPSULE PO SCH ×2 (16:20→21:13)
[2019-01-11] MEDS: Lisinopril 20 MG TABLET PO SCH (19:43)
[2019-01-11] MEDS: Ondansetron 4 MG/2 ML VIAL IVP PRN (21:12)
[2019-01-12] MEDS: Ondansetron 4 MG/2 ML VIAL IVP PRN (04:13)
[2019-01-12 04:14] VITALS: BP 191/83
[2019-01-12 05:48] LABS: BUN/Creatinine Ratio 25 (6-26); Blood Urea Nitrogen 20 mg/dL (8-23); Calcium 8.5 mg/dL (8.6-10.3); Carbon Dioxide 21 mEq/L (23-29); Chloride 103 mEq/L (98-107); Glucose 169 mg/dL (70-105); Magnesium 1.9 mg/dL (1.6-2.6); Osmolality,Calculated 281 (280-300); Potassium 3.9 mEq/L (3.5-5.1); Sodium 132 mEq/L (136-145); eGFR For Non-African Americans > 60 (> 60)
[2019-01-12] MEDS: 0.9 % Sodium Chloride 1,000 ML IVC SCH (05:50)
[2019-01-12] MEDS: Gabapentin 100 MG CAPSULE PO SCH (08:01)
[2019-01-12] MEDS: Lisinopril 20 MG TABLET PO SCH (08:01)
[2019-01-12] MEDS: ALPRAZolam 0.25 MG TABLET PO SCH (08:01)
[2019-01-12] MEDS ORDERED: Famotidine 20 MG TABLET PO SCH (09:00)
[2019-01-12] MEDS ORDERED: Finasteride 5 MG TABLET PO SCH (09:00)
--- NOTE | 2019-01-12 09:32 | Cardiothoracic Progress Note ---
Date of Encounter: 01/12/19 Time of Encounter: 09:30 - Assessment and plan (1) Benign esophageal stricture Current Visit: Yes Status: Acute The assessment and plan as outlined above was discussed with the patient and/or family members who expressed understanding and agreement. All questions were answered. We will start the patient on a pureed diet and discontinue the IV fluids. We will discharge him to home. - Subjective Interval history: The patient has no complaints and is anxious to be discharged. Vital Signs, Last 4 Hours Pulse Ox 01/12/19 08:12 95 Clinical Data, last 8 Hours Output, Urine Amount 600 Weight 01/10/19 01/11/19 01/12/19 23:59 23:59 23:59 Weight 66.678 kg 67.8 kg Lungs are clear to percussion and auscultation. Heart is in a regular rate and rhythm. His diastolic pressure is 87 and has been less than 90. His systolic pressure is elevated at approximately 180. He states that he has has hypertension and medications at home to control this. - Labs 01/12/19 05:13 Lab Results, Last 24 hours 01/12/19 05:13 Sodium 132 L Potassium 3.9 Chloride 103 Carbon Dioxide 21 L BUN 20 Creatinine 0.81 Glucose 169 H Calcium 8.5 L Magnesium 1.9 Consult Discharge Plan - Plan Referrals: Syeda Dubose, [employer] [Primary Care Provider] -
== END 2019-01-12 12:40 | disposition home or self-care (01) ==
LOC: SAMDAY 07:49 → 3ANU 07:49
PROVIDERS: ADMIT Thoracic Surgery (Cardiothoracic Vascular Surgery); ATTEND Thoracic Surgery (Cardiothoracic Vascular Surgery)

== ENCOUNTER 2019-08-08 20:53 | Observation (INO) ==
[2019-08-09] MEDS ORDERED: Naloxone 0.4 MG/ML INJ IVP PRN (03:17)
[2019-08-09] MEDS ORDERED: Dextrose Gel 15 GM/37.5 ML TUBE PO PRN ×2 (03:38)
[2019-08-09] MEDS ORDERED: *HR* Dextrose 50 % in Water (Syg) 50 ML SYRINGE IVP PRN (03:38)
[2019-08-09] MEDS ORDERED: D5% in Water 1,000 ML IVC PRN (03:38)
[2019-08-09 03:53] LABS: Hematocrit 26.9 % (37.5-50.1); Hemoglobin 9.1 g/dL (12.9-16.9); Mean Corpuscular HGB Conc 33.8 g/dL (31.6-35.5); Mean Corpuscular Hemoglobin 28.1 pg (28.0-33.3); Platelet Count 258 K/mcL (140-400); Red Blood Count 3.24 M/mcL (4.19-5.50); Red Cell Distribution Width 16.9 % (11.5-14.5); White Blood Count 7.9 K/mcL (4.3-11.1)
[2019-08-09 04:13] LABS: BUN/Creatinine Ratio 33 (6-26); Blood Urea Nitrogen 30 mg/dL (8-23); Carbon Dioxide 24 mEq/L (23-29); Chloride 110 mEq/L (98-107); Glucose 98 mg/dL (70-105); Osmolality,Calculated 290 (280-300); Potassium 3.8 mEq/L (3.5-5.1); Sodium 137 mEq/L (136-145); eGFR For African Americans > 60 (> 60); eGFR For Non-African Americans > 60 (> 60)
[2019-08-09] MEDS: 0.9 % Sodium Chloride 1,000 ML IVC SCH ×2 (05:46→14:21)
[2019-08-09] MEDS: Pantoprazole 40 MG VIAL IVP SCH ×2 (05:46→18:24)
[2019-08-09] MEDS: Insulin LISPRO 300 UNITS/3 ML VIAL SQ SCH ×3 (05:49→18:27)
[2019-08-09] MEDS ORDERED: *HR* Propofol 200 MG/20 ML VIAL IVP ONE (09:50)
[2019-08-09] MEDS ORDERED: Lidocaine -MPF 2% 2 ML VIAL ONE (09:50)
[2019-08-09 11:17] LABS: Hematocrit 27.1 % (37.5-50.1); Hemoglobin 8.6 g/dL (12.9-16.9)
[2019-08-09] MEDS ORDERED: SODIUM CHLORIDE/NAHCO3/KCL/PEG 4,000 ML SOLN.RECON PO ONE (17:00)
[2019-08-09 20:22] LABS: Hematocrit 27.7 % (37.5-50.1)
[2019-08-10] MEDS: Insulin LISPRO 300 UNITS/3 ML VIAL SQ SCH ×3 (01:07→13:48)
[2019-08-10 01:25] LABS: Hematocrit 31.6 % (37.5-50.1); Mean Corpuscular HGB Conc 31.6 g/dL (31.6-35.5); Mean Corpuscular Hemoglobin 27.9 pg (28.0-33.3); Mean Corpuscular Volume 88.3 fL (83.0-100.0); Mean Platelet Volume 9.1 fL (9.4-12.4); Platelet Count 295 K/mcL (140-400); Red Blood Count 3.58 M/mcL (4.19-5.50); White Blood Count 10.1 K/mcL (4.3-11.1)
[2019-08-10 01:42] LABS: BUN/Creatinine Ratio 27 (6-26); Blood Urea Nitrogen 21 mg/dL (8-23); Calcium 8.1 mg/dL (8.6-10.3); Carbon Dioxide 20 mEq/L (23-29); Chloride 107 mEq/L (98-107); Glucose 79 mg/dL (70-105); Osmolality,Calculated 282 (280-300); Potassium 3.5 mEq/L (3.5-5.1); Sodium 135 mEq/L (136-145); eGFR For African Americans > 60 (> 60); eGFR For Non-African Americans > 60 (> 60)
[2019-08-10] MEDS: Pantoprazole 40 MG VIAL IVP SCH (05:42)
[2019-08-10] MEDS ORDERED: Propofol 500 MG/50 ML INFUS..BTL ONE (09:37)
[2019-08-10] MEDS ORDERED: Lidocaine -MPF 2% 2 ML VIAL ONE (09:38)
[2019-08-10] MEDS ORDERED: Simethicone 40 MG/0.6 ML MLS IR ONE (10:58)
[2019-08-10] MEDS: 0.9 % Sodium Chloride 500 ML IVC SCH ×2 (10:59→11:49)
[2019-08-10] MEDS ORDERED: *HR* PHENYLEPHRINE 1,000 MCG/10 ML SYRINGE IVP ONE (11:13)
[2019-08-10] MEDS ORDERED: *HR* HYDROcodone/Acet 5/325 mg TABLET PO PRN (13:47)
[2019-08-10] MEDS ORDERED: Nitroglycerin 0.4 MG TAB.SUBL SL PRN (13:47)
[2019-08-10] MEDS ORDERED: Acetaminophen 325 MG TABLET PO PRN (13:51)
[2019-08-10 14:17] LABS: Hemoglobin 9.5 g/dL (12.9-16.9)
[2019-08-10] MEDS: Diltiazem SR (12hr) 60 MG CAPSULE PO SCH (15:00)
[2019-08-10] MEDS: *HR* HYDROcodone/Acet 5/325 mg TABLET PO PRN (21:15)
[2019-08-11 02:49] LABS: Basophils # 0.1 K/mcL (0.0-0.2); Eosinophils # 0.2 K/mcL (0.0-0.6); Eosinophils % 2.6 %; Hematocrit 26.9 % (37.5-50.1); Hemoglobin 8.9 g/dL (12.9-16.9); Immature Granulocytes % 0.3 % (0-4); Lymphocytes # 2.1 K/mcL (0.6-4.6); Lymphocytes % 34.9 %; Mean Corpuscular HGB Conc 33.1 g/dL (31.6-35.5); Mean Corpuscular Hemoglobin 28.2 pg (28.0-33.3); Mean Corpuscular Volume 85.1 fL (83.0-100.0); Mean Platelet Volume 9.4 fL (9.4-12.4); Monocytes # 0.6 K/mcL (0.0-1.3); Monocytes % 9.1 %; Neutrophils # 3.2 K/mcL (1.6-8.9); Platelet Count 238 K/mcL (140-400); Red Blood Count 3.16 M/mcL (4.19-5.50); Red Cell Distribution Width 16.7 % (11.5-14.5); Segmented Neutrophils % 52.1 %; White Blood Count 6.1 K/mcL (4.3-11.1)
[2019-08-11 03:11] LABS: BUN/Creatinine Ratio 15 (6-26); Blood Urea Nitrogen 12 mg/dL (8-23); Calcium 7.8 mg/dL (8.6-10.3); Carbon Dioxide 22 mEq/L (23-29); Chloride 107 mEq/L (98-107); Glucose 79 mg/dL (70-105); Magnesium 1.8 mg/dL (1.6-2.6); Osmolality,Calculated 281 (280-300); Potassium 3.5 mEq/L (3.5-5.1); Sodium 136 mEq/L (136-145); eGFR For African Americans > 60 (> 60); eGFR For Non-African Americans > 60 (> 60)
[2019-08-11] MEDS: Budesonide/Formoterol 80/4.5 1 PUFF INH IH SCH (08:06)
[2019-08-11] MEDS ORDERED: Diltiazem SR (12hr) 60 MG CAPSULE PO SCH (09:00)
[2019-08-11] MEDS: Gabapentin 100 MG CAPSULE PO SCH (09:04)
[2019-08-11] MEDS: Finasteride 5 MG TABLET PO SCH (09:04)
[2019-08-11] MEDS: Diltiazem SR (12hr) 60 MG CAPSULE PO SCH (09:04)
[2019-08-11] MEDS: ALPRAZolam 0.25 MG TABLET PO SCH (09:05)
[2019-08-11] MEDS: *HR* HYDROcodone/Acet 5/325 mg TABLET PO PRN (14:55)
[2019-08-12 04:59] LABS: Basophils % 0.8 %; Eosinophils # 0.1 K/mcL (0.0-0.6); Eosinophils % 2.2 %; Hematocrit 27.8 % (37.5-50.1); Immature Granulocytes % 0.4 % (0-4); Lymphocytes # 1.8 K/mcL (0.6-4.6); Mean Corpuscular HGB Conc 32.4 g/dL (31.6-35.5); Mean Corpuscular Hemoglobin 27.9 pg (28.0-33.3); Mean Corpuscular Volume 86.1 fL (83.0-100.0); Mean Platelet Volume 9.2 fL (9.4-12.4); Monocytes # 0.5 K/mcL (0.0-1.3); Monocytes % 9.1 %; Neutrophils # 2.7 K/mcL (1.6-8.9); Platelet Count 249 K/mcL (140-400); Red Blood Count 3.23 M/mcL (4.19-5.50); Segmented Neutrophils % 52.5 %; White Blood Count 5.1 K/mcL (4.3-11.1)
[2019-08-12 05:21] LABS: Albumin 2.6 g/dL (3.5-5.7); BUN/Creatinine Ratio 14 (6-26); Blood Urea Nitrogen 12 mg/dL (8-23); Carbon Dioxide 22 mEq/L (23-29); Chloride 107 mEq/L (98-107); Glucose 95 mg/dL (70-105); Magnesium 1.9 mg/dL (1.6-2.6); Osmolality,Calculated 282 (280-300); Potassium 3.8 mEq/L (3.5-5.1); Sodium 136 mEq/L (136-145); eGFR For African Americans > 60 (> 60); eGFR For Non-African Americans > 60 (> 60)
[2019-08-12] MEDS: *HR* HYDROcodone/Acet 5/325 mg TABLET PO PRN ×2 (05:24→16:55)
[2019-08-12] MEDS: 0.9 % Sodium Chloride 500 ML IVC SCH ×2 (06:47→06:48)
[2019-08-12] MEDS: Gabapentin 100 MG CAPSULE PO SCH (07:35)
[2019-08-12] MEDS: Diltiazem SR (12hr) 60 MG CAPSULE PO SCH (07:35)
[2019-08-12] MEDS: ALPRAZolam 0.25 MG TABLET PO SCH (07:36)
[2019-08-12] MEDS: Finasteride 5 MG TABLET PO SCH (07:36)
[2019-08-12] MEDS: Budesonide/Formoterol 80/4.5 1 PUFF INH IH SCH (08:04)
[2019-08-13 04:51] LABS: Hematocrit 27.3 % (37.5-50.1); Hemoglobin 8.9 g/dL (12.9-16.9)
[2019-08-13] MEDS: *HR* HYDROcodone/Acet 5/325 mg TABLET PO PRN ×2 (07:25→15:45)
[2019-08-13] MEDS: Diltiazem SR (12hr) 60 MG CAPSULE PO SCH (07:27)
[2019-08-13] MEDS: Finasteride 5 MG TABLET PO SCH (07:28)
[2019-08-13] MEDS: ALPRAZolam 0.25 MG TABLET PO SCH (07:28)
[2019-08-13] MEDS: Gabapentin 100 MG CAPSULE PO SCH (07:28)
[2019-08-13] MEDS: Budesonide/Formoterol 80/4.5 1 PUFF INH IH SCH (07:53)
[2019-08-13 15:37] VITALS: BP 115/83
== END 2019-08-13 18:43 | disposition home health service (06) ==
LOC: 3ANU → SUATTDRO 22:00
PROVIDERS: ADMIT Family Medicine; ATTEND Internal Medicine

== ENCOUNTER 2019-08-31 01:27 | Inpatient (IN) ==
[2019-08-31] MEDS ORDERED: Naloxone 0.4 MG/ML INJ IVP PRN (01:37)
[2019-08-31] MEDS ORDERED: Ondansetron 4 MG/2 ML VIAL IVP PRN (01:37)
[2019-08-31] MEDS ORDERED: 0.9 % Sodium Chloride 1,000 ML IVC SCH (01:45)
[2019-08-31 02:09] LABS: Basophils % 0.2 %; Hematocrit 28.6 % (37.5-50.1); Immature Granulocytes % 0.9 % (0-4); Immature Platelets 2.2 % (1.1-6.1); Lymphocytes # 1.1 K/mcL (0.6-4.6); Lymphocytes % 5.4 %; Mean Corpuscular HGB Conc 32.5 g/dL (31.6-35.5); Mean Corpuscular Hemoglobin 27.1 pg (28.0-33.3); Mean Corpuscular Volume 83.4 fL (83.0-100.0); Mean Platelet Volume 9.1 fL (9.4-12.4); Monocytes # 0.6 K/mcL (0.0-1.3); Neutrophils # 19.2 K/mcL (1.6-8.9); Platelet Count 224 K/mcL (140-400); Red Blood Count 3.43 M/mcL (4.19-5.50); Red Cell Distribution Width 16.4 % (11.5-14.5); Segmented Neutrophils % 90.5 %
[2019-08-31 02:14] LABS: Hemoglobin 9.3 g/dL (12.9-16.9); White Blood Count 21.2 K/mcL (4.3-11.1)
[2019-08-31 02:16] LABS: INR 1.2; Prothrombin Time 13.2 Seconds (9.4-12.1)
[2019-08-31 02:18] LABS: Activated Partial Thrombo Time 31.9 Seconds (26.0-36.0)
[2019-08-31 02:32] LABS: Alanine Aminotransferase 8 Units/L (7-52); Albumin 3.1 g/dL (3.5-5.7); Albumin/Globulin Ratio 1.3 (1.1-2.2); Alkaline Phosphatase 60 Units/L (34-104); Aspartate Amino Transferase 9 Units/L (13-39); BUN/Creatinine Ratio 24 (6-26); Bilirubin,Total 0.5 mg/dL (0.3-1.0); Blood Urea Nitrogen 26 mg/dL (8-23); Calcium 7.8 mg/dL (8.6-10.3); Carbon Dioxide 21 mEq/L (23-29); Chloride 109 mEq/L (98-107); Globulin 2.4 g/dL (2.4-3.5); Glucose 112 mg/dL (70-105); Magnesium 1.8 mg/dL (1.6-2.6); Osmolality,Calculated 290 (280-300); Sodium 137 mEq/L (136-145); Total Protein 5.5 g/dL (6.4-8.9); eGFR For African Americans > 60 (> 60); eGFR For Non-African Americans > 60 (> 60)
[2019-08-31] MEDS: cefTRIAXone 2,000 MG in 0.9 % Sodium Chloride Mini Bag 100 ML IVPB SCH (05:13)
[2019-08-31 10:21] LABS: Bilirubin,Urine Negative (Negative); Blood,Urine Large (Negative); Clarity,Urine Cloudy (Clear); Glucose,Urine (UA) Normal (Normal); Ketones,Urine Negative (Negative); Leukocyte Esterase,Urine Moderate (Negative); Nitrite,Urine Negative (Negative); PH,Urine 6.5 pH Units (5.0-8.0); Protein,Urine 100 mg/dL (Neg-Trace); Specific Gravity,Urine 1.018 (1.010-1.025); Urobilinogen,Urine Normal (Normal)
[2019-08-31 10:27] LABS: Color,Urine Red (Yellow)
[2019-08-31] MEDS ORDERED: Nitroglycerin 0.4 MG TAB.SUBL SL PRN (14:14)
[2019-08-31] MEDS: *HR* HYDROcodone/Acet 5/325 mg TABLET PO PRN (14:57)
[2019-08-31] MEDS ORDERED: Dextrose Gel 15 GM/37.5 ML TUBE PO PRN ×2 (16:33)
[2019-08-31] MEDS ORDERED: *HR* Dextrose 50 % in Water (Syg) 50 ML SYRINGE IVP PRN (16:33)
[2019-08-31] MEDS ORDERED: D5% in Water 1,000 ML IVC PRN (16:33)
[2019-08-31] MEDS ORDERED: Ipratropium/Albuterol Neb 3 ML IH PRN (16:34)
[2019-08-31] MEDS: Insulin LISPRO 300 UNITS/3 ML VIAL SQ SCH (20:21)
[2019-08-31] MEDS: ALPRAZolam 0.25 MG TABLET PO PRN (21:14)
[2019-09-01] MEDS: *HR* HYDROcodone/Acet 5/325 mg TABLET PO PRN ×4 (00:03→23:23)
[2019-09-01] MEDS: cefTRIAXone 2,000 MG in 0.9 % Sodium Chloride Mini Bag 100 ML IVPB SCH (05:30)
[2019-09-01 06:59] LABS: Basophils # 0.1 K/mcL (0.0-0.2); Basophils % 0.6 %; Eosinophils # 0.1 K/mcL (0.0-0.6); Eosinophils % 0.7 %; Hematocrit 28.5 % (37.5-50.1); Hemoglobin 8.6 g/dL (12.9-16.9); Immature Granulocytes % 0.5 % (0-4); Lymphocytes # 1.4 K/mcL (0.6-4.6); Lymphocytes % 12.9 %; Mean Corpuscular HGB Conc 30.2 g/dL (31.6-35.5); Mean Corpuscular Hemoglobin 26.4 pg (28.0-33.3); Mean Corpuscular Volume 87.4 fL (83.0-100.0); Monocytes # 0.8 K/mcL (0.0-1.3); Neutrophils # 8.7 K/mcL (1.6-8.9); Platelet Count 196 K/mcL (140-400); Red Blood Count 3.26 M/mcL (4.19-5.50); Red Cell Distribution Width 16.3 % (11.5-14.5); Segmented Neutrophils % 78.3 %; White Blood Count 11.1 K/mcL (4.3-11.1)
[2019-09-01 07:35] LABS: BUN/Creatinine Ratio 30 (6-26); Blood Urea Nitrogen 28 mg/dL (8-23); Calcium 8.1 mg/dL (8.6-10.3); Carbon Dioxide 23 mEq/L (23-29); Chloride 109 mEq/L (98-107); Ferritin 36 ng/mL (20-250); Glucose 73 mg/dL (70-105); Iron < 10 mcg/dL (65-175); Osmolality,Calculated 296 (280-300); Potassium 3.9 mEq/L (3.5-5.1); Sodium 141 mEq/L (136-145); Transferrin 216 mg/dL (203-362); eGFR For African Americans > 60 (> 60); eGFR For Non-African Americans > 60 (> 60)
[2019-09-01 07:39] LABS: Folate 6.7 ng/mL (3.0-16.0)
[2019-09-01] MEDS: Insulin LISPRO 300 UNITS/3 ML VIAL SQ SCH ×4 (08:20→19:36)
[2019-09-01] MEDS ORDERED: Diltiazem SR (12hr) 60 MG CAPSULE PO SCH (09:00)
[2019-09-01] MEDS: Finasteride 5 MG TABLET PO SCH (09:29)
[2019-09-01] MEDS: Gabapentin 100 MG CAPSULE PO SCH (09:30)
[2019-09-01] MEDS: Cyanocobalamin (B-12) 1,000 MCG TABLET PO SCH (13:50)
[2019-09-01] MEDS: ALPRAZolam 0.25 MG TABLET PO PRN (20:06)
[2019-09-02] MEDS: cefTRIAXone 2,000 MG in 0.9 % Sodium Chloride Mini Bag 100 ML IVPB SCH (05:17)
[2019-09-02] MEDS: *HR* HYDROcodone/Acet 5/325 mg TABLET PO PRN ×3 (05:18→20:21)
[2019-09-02 06:06] LABS: Basophils # 0.1 K/mcL (0.0-0.2); Basophils % 0.6 %; Eosinophils # 0.1 K/mcL (0.0-0.6); Eosinophils % 1.7 %; Hematocrit 28.8 % (37.5-50.1); Hemoglobin 8.7 g/dL (12.9-16.9); Immature Granulocytes % 0.4 % (0-4); Lymphocytes # 1.9 K/mcL (0.6-4.6); Lymphocytes % 23.8 %; Mean Corpuscular HGB Conc 30.2 g/dL (31.6-35.5); Mean Corpuscular Hemoglobin 26.3 pg (28.0-33.3); Mean Platelet Volume 9.7 fL (9.4-12.4); Monocytes # 0.7 K/mcL (0.0-1.3); Monocytes % 8.6 %; Neutrophils # 5.1 K/mcL (1.6-8.9); Platelet Count 198 K/mcL (140-400); Red Blood Count 3.31 M/mcL (4.19-5.50); Red Cell Distribution Width 16.1 % (11.5-14.5); Segmented Neutrophils % 64.9 %; White Blood Count 7.8 K/mcL (4.3-11.1)
[2019-09-02 06:27] LABS: BUN/Creatinine Ratio 29 (6-26); Blood Urea Nitrogen 22 mg/dL (8-23); Calcium 8.2 mg/dL (8.6-10.3); Carbon Dioxide 24 mEq/L (23-29); Chloride 107 mEq/L (98-107); Glucose 78 mg/dL (70-105); Magnesium 1.9 mg/dL (1.6-2.6); Osmolality,Calculated 292 (280-300); Potassium 3.6 mEq/L (3.5-5.1); Sodium 140 mEq/L (136-145); eGFR For African Americans > 60 (> 60); eGFR For Non-African Americans > 60 (> 60)
[2019-09-02] MEDS: Gabapentin 100 MG CAPSULE PO SCH (09:45)
[2019-09-02] MEDS: Finasteride 5 MG TABLET PO SCH (09:45)
[2019-09-02] MEDS: Cyanocobalamin (B-12) 1,000 MCG TABLET PO SCH (09:45)
[2019-09-02] MEDS: Insulin LISPRO 300 UNITS/3 ML VIAL SQ SCH ×4 (09:46→20:21)
[2019-09-02] MEDS: Linezolid 600 MG TABLET PO SCH ×2 (09:46→20:20)
[2019-09-02] MEDS: Diltiazem SR (12hr) 60 MG CAPSULE PO SCH ×2 (09:48→20:21)
[2019-09-02] MEDS: Ringers Solution, Lactated 1,000 ML IVC SCH (12:15)
[2019-09-02 14:49] LABS: Albumin 2.6 g/dL (3.5-5.7); Albumin/Globulin Ratio 1.1 (1.1-2.2); Bilirubin,Direct 0.1 mg/dL (0.0-0.2); Bilirubin,Indirect 0.2 mg/dL (0.0-1.0); Bilirubin,Total 0.3 mg/dL (0.3-1.0); Globulin 2.3 g/dL (2.4-3.5); Total Protein 4.9 g/dL (6.4-8.9)
[2019-09-02 16:19] LABS: Bilirubin,Urine Negative (Negative); Blood,Urine Large (Negative); Clarity,Urine Cloudy (Clear); Glucose,Urine (UA) Normal (Normal); Ketones,Urine Trace mg/dL (Negative); Leukocyte Esterase,Urine Large (Negative); Nitrite,Urine Negative (Negative); Protein,Urine 100 mg/dL (Neg-Trace); Urobilinogen,Urine Normal (Normal)
[2019-09-02 16:22] LABS: Bacteria,Urine None Seen per hpf (None-Few); Hyaline Casts,Urine Few per lpf (None-Few); RBC,Urine TNTC per hpf (0-3); Squamous Epithelial Cell,Urine Many per lpf (None-Few); WBC,Urine 50-100 per hpf (0-3)
[2019-09-02 16:23] LABS: Color,Urine Amber (Yellow)
[2019-09-03] MEDS: Ringers Solution, Lactated 1,000 ML IVC SCH ×2 (01:11→14:38)
[2019-09-03] MEDS: *HR* HYDROcodone/Acet 5/325 mg TABLET PO PRN ×2 (04:35→12:18)
[2019-09-03 08:27] LABS: Basophils % 0.6 %; Eosinophils # 0.1 K/mcL (0.0-0.6); Eosinophils % 1.4 %; Hematocrit 28.7 % (37.5-50.1); Hemoglobin 9.1 g/dL (12.9-16.9); Immature Granulocytes % 0.6 % (0-4); Lymphocytes # 1.2 K/mcL (0.6-4.6); Lymphocytes % 19.1 %; Mean Corpuscular HGB Conc 31.7 g/dL (31.6-35.5); Mean Corpuscular Hemoglobin 26.2 pg (28.0-33.3); Mean Corpuscular Volume 82.7 fL (83.0-100.0); Mean Platelet Volume 9.7 fL (9.4-12.4); Monocytes # 0.4 K/mcL (0.0-1.3); Monocytes % 6.3 %; Neutrophils # 4.6 K/mcL (1.6-8.9); Platelet Count 206 K/mcL (140-400); Red Blood Count 3.47 M/mcL (4.19-5.50); White Blood Count 6.4 K/mcL (4.3-11.1)
[2019-09-03 08:46] LABS: BUN/Creatinine Ratio 22 (6-26); Blood Urea Nitrogen 15 mg/dL (8-23); Calcium 7.8 mg/dL (8.6-10.3); Carbon Dioxide 26 mEq/L (23-29); Chloride 105 mEq/L (98-107); Glucose 96 mg/dL (70-105); Magnesium 1.7 mg/dL (1.6-2.6); Osmolality,Calculated 289 (280-300); Potassium 3.9 mEq/L (3.5-5.1); Sodium 139 mEq/L (136-145); eGFR For African Americans > 60 (> 60); eGFR For Non-African Americans > 60 (> 60)
[2019-09-03] MEDS ORDERED: cefTRIAXone 2,000 MG in 0.9 % Sodium Chloride Mini Bag 100 ML IVPB SCH (09:00)
[2019-09-03] MEDS: Insulin LISPRO 300 UNITS/3 ML VIAL SQ SCH ×3 (10:01→17:09)
[2019-09-03] MEDS: Diltiazem SR (12hr) 60 MG CAPSULE PO SCH (10:01)
[2019-09-03] MEDS: Gabapentin 100 MG CAPSULE PO SCH (10:02)
[2019-09-03] MEDS: Linezolid 600 MG TABLET PO SCH (10:02)
[2019-09-03] MEDS: Finasteride 5 MG TABLET PO SCH (10:02)
[2019-09-03] MEDS: Cyanocobalamin (B-12) 1,000 MCG TABLET PO SCH (10:03)
[2019-09-03 16:49] VITALS: BP 143/62
== END 2019-09-03 18:15 | disposition home health service (06) | DRG 871 ==
LOC: 2ANU → SUATTDRO 01:27
PROVIDERS: ADMIT Internal Medicine; ATTEND Pharmacist

== ENCOUNTER 2019-09-26 15:27 | Inpatient (IN) ==
[2019-09-26 16:53] LABS: Basophils # 0.1 K/mcL (0.0-0.2); Basophils % 1.5 %; Eosinophils # 0.1 K/mcL (0.0-0.6); Eosinophils % 1.7 %; Hematocrit 32.7 % (37.5-50.1); Hemoglobin 10.5 g/dL (12.9-16.9); Immature Granulocytes % 0.2 % (0-4); Lymphocytes # 2.1 K/mcL (0.6-4.6); Lymphocytes % 35.3 %; Mean Corpuscular HGB Conc 32.1 g/dL (31.6-35.5); Mean Corpuscular Hemoglobin 26.2 pg (28.0-33.3); Mean Corpuscular Volume 81.5 fL (83.0-100.0); Mean Platelet Volume 9.6 fL (9.4-12.4); Monocytes # 0.5 K/mcL (0.0-1.3); Monocytes % 8.8 %; Neutrophils # 3.1 K/mcL (1.6-8.9); Platelet Count 341 K/mcL (140-400); Red Blood Count 4.01 M/mcL (4.19-5.50); Red Cell Distribution Width 18.2 % (11.5-14.5); Segmented Neutrophils % 52.5 %; White Blood Count 5.9 K/mcL (4.3-11.1)
[2019-09-26 17:07] LABS: Blood Urea Nitrogen 15 mg/dL (8-23); Calcium 8.9 mg/dL (8.6-10.3); Carbon Dioxide 22 mEq/L (23-29); Chloride 104 mEq/L (98-107); Glucose 83 mg/dL (70-105); Osmolality,Calculated 284 (280-300); Potassium 3.7 mEq/L (3.5-5.1); Sodium 137 mEq/L (136-145)
[2019-09-26 17:09] LABS: BUN/Creatinine Ratio 18 (6-26); eGFR For African Americans > 60 (> 60); eGFR For Non-African Americans > 60 (> 60)
[2019-09-26 17:50] LABS: Bilirubin,Urine Small (Negative); Blood,Urine Negative (Negative); Clarity,Urine Clear (Clear); Color,Urine Dark Yellow (Yellow); Glucose,Urine (UA) Normal (Normal); Ketones,Urine Negative (Negative); Leukocyte Esterase,Urine Trace (Negative); Nitrite,Urine Negative (Negative); PH,Urine 6.5 pH Units (5.0-8.0); Protein,Urine Negative (Neg-Trace); Specific Gravity,Urine 1.018 (1.010-1.025); Urobilinogen,Urine Normal (Normal)
[2019-09-26 17:53] LABS: Bacteria,Urine None Seen per hpf (None-Few); Hyaline Casts,Urine None Seen per lpf (None-Few); Squamous Epithelial Cell,Urine Many per lpf (None-Few); WBC,Urine 0-3 per hpf (0-3)
[2019-09-26] MEDS ORDERED: Naloxone 0.4 MG/ML INJ IVP PRN (21:51)
[2019-09-26] MEDS: 0.9 % Sodium Chloride 1,000 ML IVC SCH (22:35)
[2019-09-27] MEDS: Ondansetron 4 MG/2 ML VIAL IVP PRN ×2 (04:32→15:19)
[2019-09-27 05:26] LABS: Adenovirus Not Detected (Not Detect); Bordetella Pertussis Not Detected (Not Detect); Chlamydophila pneumoniae Not Detected (Not Detect); Coronavirus 229E Not Detected (Not Detect); Coronavirus HKU1 Not Detected (Not Detect); Coronavirus NL63 Not Detected (Not Detect); Coronavirus OC43 Not Detected (Not Detect); Human Metapneumovirus Not Detected (Not Detect); Human Rhinovirus/Enterovirus Not Detected (Not Detect); Influenza A Subtype 2009 H1 Not Detected (Not Detect); Influenza B Not Detected (Not Detect); Mycoplasma pneumoniae Not Detected (Not Detect); Parainfluenza Virus 1 Not Detected (Not Detect); Parainfluenza Virus 2 Not Detected (Not Detect); Parainfluenza Virus 3 Not Detected (Not Detect); Parainfluenza Virus 4 Not Detected (Not Detect); Respiratory Syncytial Virus Not Detected (Not Detect)
[2019-09-27 05:58] LABS: Hematocrit 29.8 % (37.5-50.1); Hemoglobin 9.4 g/dL (12.9-16.9); Mean Corpuscular HGB Conc 31.5 g/dL (31.6-35.5); Mean Corpuscular Hemoglobin 26.2 pg (28.0-33.3); Mean Platelet Volume 9.9 fL (9.4-12.4); Platelet Count 308 K/mcL (140-400); Red Blood Count 3.59 M/mcL (4.19-5.50); Red Cell Distribution Width 18.2 % (11.5-14.5); White Blood Count 5.7 K/mcL (4.3-11.1)
[2019-09-27] MEDS ORDERED: *HR* Heparin 5,000 UNIT/ML VIAL SQ SCH (06:00)
[2019-09-27 06:20] LABS: BUN/Creatinine Ratio 16 (6-26); Blood Urea Nitrogen 13 mg/dL (8-23); Calcium 8.3 mg/dL (8.6-10.3); Carbon Dioxide 22 mEq/L (23-29); Chloride 105 mEq/L (98-107); Glucose 75 mg/dL (70-105); Osmolality,Calculated 285 (280-300); Potassium 3.8 mEq/L (3.5-5.1); Sodium 138 mEq/L (136-145); eGFR For African Americans > 60 (> 60); eGFR For Non-African Americans > 60 (> 60)
[2019-09-27] MEDS ORDERED: Ondansetron 4 MG/2 ML VIAL IVP PRN (11:03)
[2019-09-27] MEDS ORDERED: *HR* Promethazine 25 MG/ML VIAL IVP ONE ×2 (11:03→19:53)
[2019-09-27] MEDS ORDERED: *HR* Promethazine 25 MG/ML VIAL IVP PRN (11:07)
[2019-09-27] MEDS ORDERED: *HR* Propofol 200 MG/20 ML VIAL IVP ONE (11:19)
[2019-09-27] MEDS ORDERED: *HR* Succinylcholine 200 MG/10 ML VIAL IVP ONE (11:27)
[2019-09-27] MEDS ORDERED: Lidocaine -MPF 2% 2 ML VIAL ONE (11:30)
[2019-09-27] MEDS: 0.9 % Sodium Chloride 1,000 ML IVC SCH (15:20)
[2019-09-27] MEDS ORDERED: D5% in Water 1,000 ML IVC PRN (19:07)
[2019-09-27] MEDS ORDERED: Dextrose Gel 15 GM/37.5 ML TUBE PO PRN ×2 (19:07)
[2019-09-27] MEDS ORDERED: *HR* Dextrose 50 % in Water (Syg) 50 ML SYRINGE IVP PRN (19:07)
[2019-09-27] MEDS ORDERED: *HR* Metoprolol 5 MG/5 ML VIAL IVP ONE (19:54)
[2019-09-27] MEDS ORDERED: *HR* Labetalol 20 MG/4 ML SYRINGE IVP ONE (21:15)
[2019-09-28] MEDS ORDERED: *HR* Metoprolol 5 MG/5 ML VIAL IVP ONE (00:21)
[2019-09-28 02:54] LABS: Hematocrit 32.1 % (37.5-50.1); Hemoglobin 9.8 g/dL (12.9-16.9); Mean Corpuscular HGB Conc 30.5 g/dL (31.6-35.5); Mean Corpuscular Hemoglobin 25.8 pg (28.0-33.3); Mean Corpuscular Volume 84.5 fL (83.0-100.0); Mean Platelet Volume 9.6 fL (9.4-12.4); Platelet Count 337 K/mcL (140-400); Red Cell Distribution Width 18.4 % (11.5-14.5); White Blood Count 9.2 K/mcL (4.3-11.1)
[2019-09-28 03:11] LABS: BUN/Creatinine Ratio 17 (6-26); Blood Urea Nitrogen 11 mg/dL (8-23); Calcium 8.1 mg/dL (8.6-10.3); Carbon Dioxide 18 mEq/L (23-29); Chloride 105 mEq/L (98-107); Glucose 99 mg/dL (70-105); Osmolality,Calculated 277 (280-300); Potassium 3.8 mEq/L (3.5-5.1); Sodium 134 mEq/L (136-145); eGFR For African Americans > 60 (> 60); eGFR For Non-African Americans > 60 (> 60)
[2019-09-28] MEDS: 0.9 % Sodium Chloride 1,000 ML IVC SCH ×2 (05:01→17:15)
[2019-09-28] MEDS ORDERED: *HR* HYDROcodone/Acet 5/325 mg TABLET PO PRN (08:20)
[2019-09-28] MEDS: Insulin LISPRO 300 UNITS/3 ML VIAL SQ SCH ×3 (08:51→16:05)
[2019-09-28] MEDS: Diltiazem SR (12hr) 60 MG CAPSULE PO SCH (08:59)
[2019-09-28] MEDS: Ondansetron 4 MG/2 ML VIAL IVP PRN (08:59)
[2019-09-28] MEDS: Finasteride 5 MG TABLET PO SCH (08:59)
[2019-09-28] MEDS: Gabapentin 100 MG CAPSULE PO SCH (09:00)
[2019-09-28] MEDS: *HR* HYDROcodone/Acet 5/325 mg TABLET PO PRN (17:14)
[2019-09-29] MEDS ORDERED: *HR* Labetalol 20 MG/4 ML SYRINGE IVP ONE ×2 (02:56→04:27)
[2019-09-29] MEDS ORDERED: Melatonin 3 MG TABLET PO ONE (02:57)
[2019-09-29 03:26] LABS: Hematocrit 29.3 % (37.5-50.1); Hemoglobin 9.5 g/dL (12.9-16.9); Mean Corpuscular HGB Conc 32.4 g/dL (31.6-35.5); Mean Corpuscular Hemoglobin 26.3 pg (28.0-33.3); Mean Corpuscular Volume 81.2 fL (83.0-100.0); Mean Platelet Volume 9.9 fL (9.4-12.4); Platelet Count 311 K/mcL (140-400); Red Blood Count 3.61 M/mcL (4.19-5.50); Red Cell Distribution Width 17.9 % (11.5-14.5); White Blood Count 10.2 K/mcL (4.3-11.1)
[2019-09-29 03:42] LABS: BUN/Creatinine Ratio 26 (6-26); Blood Urea Nitrogen 15 mg/dL (8-23); Calcium 7.8 mg/dL (8.6-10.3); Carbon Dioxide 20 mEq/L (23-29); Chloride 104 mEq/L (98-107); Glucose 122 mg/dL (70-105); Osmolality,Calculated 278 (280-300); Potassium 3.6 mEq/L (3.5-5.1); Sodium 133 mEq/L (136-145); eGFR For African Americans > 60 (> 60); eGFR For Non-African Americans > 60 (> 60)
[2019-09-29] MEDS: *HR* HYDROcodone/Acet 5/325 mg TABLET PO PRN ×2 (04:18→17:04)
[2019-09-29] MEDS: 0.9 % Sodium Chloride 1,000 ML IVC SCH ×2 (06:43→21:14)
[2019-09-29] MEDS: Insulin LISPRO 300 UNITS/3 ML VIAL SQ SCH ×3 (07:38→17:00)
[2019-09-29] MEDS: Gabapentin 100 MG CAPSULE PO SCH (08:17)
[2019-09-29] MEDS: Diltiazem SR (12hr) 60 MG CAPSULE PO SCH (08:17)
[2019-09-29] MEDS: Finasteride 5 MG TABLET PO SCH (08:17)
[2019-09-29] MEDS ORDERED: Acetaminophen 325 MG TABLET PO ONE (21:57)
[2019-09-30 06:36] LABS: Hematocrit 25.5 % (37.5-50.1); Mean Corpuscular Hemoglobin 26.4 pg (28.0-33.3); Mean Corpuscular Volume 85.3 fL (83.0-100.0); Mean Platelet Volume 9.8 fL (9.4-12.4); Platelet Count 241 K/mcL (140-400); Red Blood Count 2.99 M/mcL (4.19-5.50); Red Cell Distribution Width 18.2 % (11.5-14.5); White Blood Count 7.2 K/mcL (4.3-11.1)
[2019-09-30 06:38] LABS: Hemoglobin 7.9 g/dL (12.9-16.9)
[2019-09-30 06:58] LABS: BUN/Creatinine Ratio 34 (6-26); Blood Urea Nitrogen 21 mg/dL (8-23); Calcium 7.8 mg/dL (8.6-10.3); Carbon Dioxide 23 mEq/L (23-29); Chloride 106 mEq/L (98-107); Glucose 87 mg/dL (70-105); Osmolality,Calculated 282 (280-300); Potassium 3.6 mEq/L (3.5-5.1); Sodium 135 mEq/L (136-145); eGFR For African Americans > 60 (> 60); eGFR For Non-African Americans > 60 (> 60)
[2019-09-30] MEDS: Finasteride 5 MG TABLET PO SCH (08:08)
[2019-09-30] MEDS: Diltiazem SR (12hr) 60 MG CAPSULE PO SCH (08:08)
[2019-09-30] MEDS: ALPRAZolam 0.25 MG TABLET PO PRN (08:10)
[2019-09-30] MEDS: Gabapentin 100 MG CAPSULE PO SCH (08:10)
[2019-09-30] MEDS: *HR* HYDROcodone/Acet 5/325 mg TABLET PO PRN (08:10)
[2019-09-30] MEDS: Insulin LISPRO 300 UNITS/3 ML VIAL SQ SCH ×3 (08:11→17:41)
[2019-09-30] MEDS ORDERED: 0.9 % Sodium Chloride 1,000 ML ONE (10:50)
[2019-09-30] MEDS: 0.9 % Sodium Chloride 1,000 ML IVC SCH (10:55)
[2019-09-30 12:33] LABS: Hematocrit 25.8 % (37.5-50.1); Hemoglobin 7.9 g/dL (12.9-16.9); Mean Corpuscular HGB Conc 30.6 g/dL (31.6-35.5); Mean Corpuscular Hemoglobin 26.2 pg (28.0-33.3); Mean Corpuscular Volume 85.4 fL (83.0-100.0); Mean Platelet Volume 9.9 fL (9.4-12.4); Platelet Count 232 K/mcL (140-400); Red Blood Count 3.02 M/mcL (4.19-5.50); Red Cell Distribution Width 18.1 % (11.5-14.5); White Blood Count 6.3 K/mcL (4.3-11.1)
[2019-10-01 03:19] LABS: Hematocrit 25.5 % (37.5-50.1); Hemoglobin 7.8 g/dL (12.9-16.9); Mean Corpuscular HGB Conc 30.6 g/dL (31.6-35.5); Mean Corpuscular Hemoglobin 25.8 pg (28.0-33.3); Mean Corpuscular Volume 84.4 fL (83.0-100.0); Mean Platelet Volume 9.8 fL (9.4-12.4); Platelet Count 229 K/mcL (140-400); Red Blood Count 3.02 M/mcL (4.19-5.50); Red Cell Distribution Width 18.4 % (11.5-14.5); White Blood Count 6.4 K/mcL (4.3-11.1)
[2019-10-01 03:37] LABS: BUN/Creatinine Ratio 44 (6-26); Blood Urea Nitrogen 27 mg/dL (8-23); Calcium 7.6 mg/dL (8.6-10.3); Carbon Dioxide 21 mEq/L (23-29); Chloride 107 mEq/L (98-107); Glucose 98 mg/dL (70-105); Osmolality,Calculated 285 (280-300); Potassium 3.3 mEq/L (3.5-5.1); Sodium 135 mEq/L (136-145); eGFR For African Americans > 60 (> 60); eGFR For Non-African Americans > 60 (> 60)
[2019-10-01] MEDS ORDERED: Potassium Chloride Elixir 20 MEQ/15 ML UDC PO ONE (07:31)
[2019-10-01] MEDS: Gabapentin 100 MG CAPSULE PO SCH (09:45)
[2019-10-01] MEDS: Finasteride 5 MG TABLET PO SCH (09:46)
[2019-10-01] MEDS: Diltiazem SR (12hr) 60 MG CAPSULE PO SCH (09:46)
[2019-10-01] MEDS: Insulin LISPRO 300 UNITS/3 ML VIAL SQ SCH ×3 (09:46→17:12)
[2019-10-01] MEDS: Aspirin 81 MG TAB.CHEW PO SCH (14:12)
[2019-10-01] MEDS: *HR* HYDROcodone/Acet 5/325 mg TABLET PO PRN (14:55)
[2019-10-01] MEDS: ALPRAZolam 0.25 MG TABLET PO PRN (14:56)
[2019-10-02 04:54] LABS: Basophils # 0.1 K/mcL (0.0-0.2); Basophils % 1.2 %; Eosinophils # 0.2 K/mcL (0.0-0.6); Hematocrit 27.8 % (37.5-50.1); Hemoglobin 8.4 g/dL (12.9-16.9); Immature Granulocytes % 0.2 % (0-4); Lymphocytes # 2.2 K/mcL (0.6-4.6); Lymphocytes % 36.2 %; Mean Corpuscular HGB Conc 30.2 g/dL (31.6-35.5); Mean Corpuscular Hemoglobin 25.8 pg (28.0-33.3); Mean Corpuscular Volume 85.5 fL (83.0-100.0); Monocytes # 0.4 K/mcL (0.0-1.3); Monocytes % 7.2 %; Neutrophils # 3.1 K/mcL (1.6-8.9); Platelet Count 222 K/mcL (140-400); Red Blood Count 3.25 M/mcL (4.19-5.50); Red Cell Distribution Width 18.6 % (11.5-14.5); Segmented Neutrophils % 51.2 %
[2019-10-02 05:15] LABS: Alanine Aminotransferase 40 Units/L (7-52); Albumin 2.6 g/dL (3.5-5.7); Albumin/Globulin Ratio 1.5 (1.1-2.2); Alkaline Phosphatase 111 Units/L (34-104); Aspartate Amino Transferase 21 Units/L (13-39); BUN/Creatinine Ratio 33 (6-26); Bilirubin,Total 0.4 mg/dL (0.3-1.0); Blood Urea Nitrogen 22 mg/dL (8-23); Calcium 7.6 mg/dL (8.6-10.3); Carbon Dioxide 22 mEq/L (23-29); Chloride 106 mEq/L (98-107); Chol/HDL Ratio 2.5 (0-4.9); Cholesterol 68 mg/dL (< 200); Globulin 1.7 g/dL (2.4-3.5); Glucose 88 mg/dL (70-105); HDL Cholesterol 27 mg/dL (40-59); LDL Cholesterol,Calculated 31 mg/dL (0-99); Osmolality,Calculated 283 (280-300); Potassium 3.5 mEq/L (3.5-5.1); Sodium 135 mEq/L (136-145); Total Protein 4.3 g/dL (6.4-8.9); Triglycerides 51 mg/dL (< 150); eGFR For African Americans > 60 (> 60); eGFR For Non-African Americans > 60 (> 60)
[2019-10-02] MEDS: Insulin LISPRO 300 UNITS/3 ML VIAL SQ SCH ×3 (08:28→16:21)
[2019-10-02] MEDS: Gabapentin 100 MG CAPSULE PO SCH (08:36)
[2019-10-02] MEDS: Finasteride 5 MG TABLET PO SCH (08:37)
[2019-10-02] MEDS: Diltiazem SR (12hr) 60 MG CAPSULE PO SCH ×2 (08:37→20:17)
[2019-10-02] MEDS: Aspirin 81 MG TAB.CHEW PO SCH (08:37)
[2019-10-03] MEDS: Insulin LISPRO 300 UNITS/3 ML VIAL SQ SCH ×2 (07:17→11:57)
[2019-10-03] MEDS: Diltiazem SR (12hr) 60 MG CAPSULE PO SCH (08:04)
[2019-10-03] MEDS: Finasteride 5 MG TABLET PO SCH (08:05)
[2019-10-03] MEDS: Aspirin 81 MG TAB.CHEW PO SCH (08:05)
[2019-10-03] MEDS: Gabapentin 100 MG CAPSULE PO SCH (08:05)
[2019-10-03 11:37] VITALS: BP 115/66
== END 2019-10-03 15:20 | disposition home health service (06) | DRG 391 ==
LOC: EMEROOARM 15:27 → 3BNU 15:27
PROVIDERS: ADMIT Internal Medicine; ATTEND Internal Medicine